=== PATIENT | female | born 1995 | race Caucasian/White ===

== ENCOUNTER 2019-01-31 14:42 | Day surgery (SDC) | payer BC, OTHER ==
[2019-01-31] MEDS ORDERED: ONDANSETRON HCL INJ/PF 4 MG/2 ML SDV IV ONE (14:54)
[2019-01-31] MEDS ORDERED: NORMAL SALINE 1000 ML 1,000 ML IV ONE (14:54)
--- NOTE | 2019-01-31 14:56 | ER Document Report ---
ED Medical Screen (RME) - General Chief Complaint: Lower Abdominal Pain Stated Complaint: ABDOMINAL PAIN Time Seen by Provider: 01/31/19 14:54 Mode of Arrival: Ambulatory Information source: Patient Notes: Patient presents complaining of right flank pain for the past 4 weeks. Patient states yesterday the pain migrated to the right lower quadrant of her abdomen. Patient reports nausea and vomiting today. Patient was seen at the [facility] for her flank pain symptoms last week and then saw urologist yesterday. Patient tachycardic in triage. I have greeted and performed a rapid initial assessment of this patient. A comprehensive ED assessment and evaluation of the patient, analysis of test results and completion of the medical decision making process will be conducted by additional ED providers. TRAVEL OUTSIDE OF THE [place] IN LAST 30 DAYS: No - Related Data Allergies/Adverse Reactions: No Known Allergies Allergy (Verified 01/31/19 14:47) Physical Exam - Vital signs Vitals: Temp Pulse Resp BP Pulse Ox 98.3 F 140 H 16 140/89 H 100 01/31/19 14:50 01/31/19 14:50 01/31/19 14:50 01/31/19 14:50 01/31/19 14:50 - Cardiovascular Rhythm: Tachycardia Heart sounds: S1 appreciated, S2 appreciated - Abdominal Tenderness: Tender - Right lower quadrant Course - Vital Signs Vital signs: Temp Pulse Resp BP Pulse Ox 98.3 F 140 H 16 140/89 H 100 01/31/19 14:50 01/31/19 14:50 01/31/19 14:50 01/31/19 14:50 01/31/19 14:50
[2019-01-31 15:32] LABS: ABSOLUTE LYMPHOCYTES (AUTO) 1.5 10^3/uL (0.5-4.7); ABSOLUTE MONOCYTES (AUTO) 0.5 10^3/uL (0.1-1.4); ABSOLUTE NEUT (AUTO) 8.9 10^3/uL (1.7-8.2); BASOPHILS % (AUTO) 0.3 % (0-2); EOSINOPHILS % (AUTO) 0.4 % (0-6); HEMATOCRIT 41.2 % (36.0-47.0); HEMOGLOBIN 14.1 g/dL (12.0-15.5); LYMPHOCYTES % (AUTO) 13.8 % (13-45); MEAN CORPUSCULAR HEMOGLOBIN 29.9 pg (27.0-33.4); MEAN CORPUSCULAR HGB CONC 34.1 g/dL (32.0-36.0); MEAN CORPUSCULAR VOLUME 88 fl (80-97); MONOCYTES % (AUTO) 4.8 % (3-13); PLATELET COUNT 224 10^3/uL (150-450); RED CELL DISTRIBUTION WIDTH 13.1 % (11.5-14.0); SEGMENTED NEUTROPHILS % (AUTO) 80.7 % (42-78); TOTAL CELLS COUNTED % (AUTO) 100 %; WHITE BLOOD COUNT 11.1 10^3/uL (4.0-10.5)
--- NOTE | 2019-01-31 16:01 | ER Document Report ---
ED GI/ <MALLORY GONSALES - Last Filed: 02/01/19 02:28> - General Mode of Arrival: Ambulatory TRAVEL OUTSIDE OF THE [place] IN LAST 30 DAYS: No <BRENTON GONZÁLES - Last Filed: 02/13/19 03:02> - General Chief Complaint: Lower Abdominal Pain Stated Complaint: ABDOMINAL PAIN Time Seen by Provider: 01/31/19 14:54 Notes: Wet mount shows some bacteria, only 1+ white blood cells. On reevaluation patient continues to have lower abdominal pain, she does have right lower quadrant pain. Ultrasound was negative but this is common. She has mild leukocytosis. She is mildly uncomfortable in appearance but she is not toxic in appearance. I discussed with patient, recommended CT of the abdomen and pelvis with IV and oral contrast to rule out acute appendicitis based on her work-up and exam. Patient is very agreeable with this. CT of the abdomen pelvis with IV and oral contrast does indicate acute appendicitis. I called and spoke with Dr. Frances, he will evaluate the patient. (MALLORY GONSALES) Patient is a 23-year-old female who presents to the emergency department with chief complaint of umbilical pain that radiates into the right lower quadrant. Patient states that she developed right flank pain last Wednesday. Patient states she was seen at urgent care 2 days afterwards and was told she had blood in the urine as well as a possible infection. Patient states they did not do imaging at that time but did prescribe her Cipro. Patient states that 2 hours later she did go to the emergency department at [facility] where she reports receiving a CAT scan. Patient was also told she had blood in her urine and was told she had stones in her kidneys. She was told to not take the Cipro as she did not have an infection in her urine. Patient states she continued to have pain throughout the weekend so she followed up with the urologist yesterday. Patient states she saw [facility] in [place]. She states that the urologist told her to drink plenty of fluids and that the size of the kidney stones should not be cau sing the pain. Patient states she thought maybe she was constipated or was having gas so she attempted mag citrate at home. Patient states she has had multiple bowel movements and has now developed umbilical pain that radiates into the right lower quadrant that started yesterday. Patient states she has had chills without fever. Patient states she started to vomit multiple times today. Denies vaginal bleeding or discharge. Patient states her last menstrual cycle was 9 months ago as she is on the Depo-Provera shot. Patient states that the pain in her abdomen is worse when she lays flat. (BRENTON GONZÁLES) - Related Data Allergies/Adverse Reactions: No Known Allergies Allergy (Verified 01/31/19 14:47) Past Medical History - General Information source: Patient - Social History Smoking Status: Never Smoker Chew tobacco use (# tins/day): No Frequency of alcohol use: Rare Drug Abuse: None Lives with: Spouse/Significant other Family History: None Patient has suicidal ideation: No Patient has homicidal ideation: No - Past Medical History Cardiac Medical History: Reports: None Pulmonary Medical History: Reports: None EENT Medical History: Reports: None Neurological Medical History: Reports: None Endocrine Medical History: Reports: None Renal/ Medical History: Reports: None. Denies: Hx Peritoneal Dialysis Malignancy Medical History: Reports: None GI Medical History: Reports: None Musculoskeletal Medical History: Reports None Skin Medical History: Reports None Psychiatric Medical History: Reports: None Traumatic Medical History: Reports: None Infectious Medical History: Reports: None Past Surgical History: Reports: Other - [place] teeth <BRENTON GONZÁLES - Last Filed: 02/13/19 03:02> Review of Systems - Review of Systems Constitutional: See HPI EENT: No symptoms reported Cardiovascular: No symptoms reported Respiratory: No symptoms reported Gastrointestinal: See HPI Genitourinary: No symptoms reported Female Genitourinary: No symptoms reported Musculoskeletal: No symptoms reported Skin: No symptoms reported Hematologic/Lymphatic: No symptoms reported Neurological/Psychological: No symptoms reported <SHYANNE GONZÁLESECCA - Last Filed: 02/13/19 03:02> Physical Exam - Vital signs Interpretation: Tachycardic <JALEEL GONZÁLESCA - Last Filed: 02/13/19 03:02> - Vital signs Vitals: Temp Pulse Resp BP Pulse Ox 98.3 F 140 H 16 140/89 H 100 01/31/19 14:50 01/31/19 14:50 01/31/19 14:50 01/31/19 14:50 01/31/19 14:50 - Notes Notes: GENERAL: Well-appearing, well-nourished and in no acute distress. HEAD: Atraumatic, normocephalic. EYES: Pupils equal round and reactive to light, extraocular movements intact, sclera anicteric, conjunctiva are normal. ENT: Nares patent, oropharynx clear without exudates. Moist mucous membranes. NECK: Normal range of motion, supple without lymphadenopathy or JVD. LUNGS: Breath sounds clear to auscultation bilaterally and equal. No wheezes rales or rhonchi. HEART: Regular rate and rhythm without murmurs, rubs or gallops. ABDOMEN: Soft, tender with palpation to the umbilicus and RLQ, hyperactive bowel sounds. No guarding, no rebound. No masses appreciated. + rovsings signs. BACK: No cervical, thoracic, lumbar midline tenderness. No saddle anesthesia, normal distal neurovascular exam. No CVA tenderness. GENITOURINARY: Deferred. EXTREMITIES: Normal range of motion, no pitting or edema. No clubbing or cyanosis. NEUROLOGICAL: Cranial nerves II through XII grossly intact. Normal speech, normal gait. PSYCH: Normal mood, normal affect. SKIN: Warm, Dry, normal turgor, no rashes or lesions noted. (BRENTON GONZÁLES) Course - Laboratory Result Diagrams: 01/31/19 15:14 01/31/19 17:55 <MALLORY GONSALES - Last Filed: 02/01/19 02:28> - Laboratory Result Diagrams: 01/31/19 15:14 01/31/19 17:55 <BRENTON GONZÁLES - Last Filed: 02/13/19 03:02> - Re-evaluation Re-evalutation: 01/31/19 18:00 Despite receiving pain medication patient continues to have umbilical pain that radiates into the right lower quadrant. Patient states the pain is worse when she straightens her legs. I did receive the CT scan from when the patient was seen on January 25 at [facility] emergency department. The impression was bilateral nonobstructing nephrolithiasis with no evidence of obstructive uropathy. Patient has a normal caliber appendix containing appendicoliths. No secondary signs for acute appendicitis. Since patient is not having flank pain and has developed new abdominal pain that is located in the umbilicus that radiates to the right lower quadrant I will obtain an abdominal ultrasound the patient did just receive a CAT scan last week. 01/31/19 19:54 Patient's of abdominal ultrasound was negative but they were unable to visualize the appendix. Upon reevaluation of the patient continues to have right lower quadrant pain as well as generalized lower abdominal pain. Patient denies vaginal discharge or pelvic pain. I did explain to the patient that I will perform a pelvic examination to rule out pelvic infection. If normal, will obtain CT. Patient agrees with this plan. (BRENTON GONZÁLES) - Vital Signs Vital signs: Temp Pulse Resp BP Pulse Ox 97.9 F 88 16 123/78 100 02/01/19 16:00 02/01/19 16:00 02/01/19 16:00 02/01/19 16:00 02/01/19 16:00 - Laboratory Laboratory results interpreted by me: 01/31/19 01/31/19 01/31/19 15:14 16:00 17:55 WBC 11.1 H Seg Neutrophils % 80.7 H Absolute Neutrophils 8.9 H Chloride 108 H AST 10 L Total Protein 5.8 L Urine Ketones TRACE H Procedures - Pelvic Exam Pelvic exam Time completed: 20:25 Cultures obtained: Yes Wet prep obtained: Yes Bimanual exam performed: Yes Witnessed by: Nurse Tech <BRENTON GONZÁLES - Last Filed: 02/13/19 03:02> - Pelvic Exam Pelvic exam Notes: 01/31/19 20:31 External genitalia unremarkable. There is no lesions, open wounds or vaginal discharge. Patient tolerated the insertion of the speculum well without signif icant pain. Patient did have small amount of thick white vaginal discharge in the vaginal vault and around cervix. Specimens obtained. Cervix easily visualized and closed. No foreign bodies noted. No bleeding. Bimanual examination performed with mild right adnexal tenderness. (BRENTON GONZÁLES) Discharge - Discharge Admitting Provider: Surgicalist Unit Admitted: Surgical Floor <MALLORY GONSALES - Last Filed: 02/01/19 02:28> <BRENTON GONZÁLES - Last Filed: 02/13/19 03:02> - Discharge Clinical Impression: Right lower quadrant pain Acute appendicitis Qualifiers: Acute appendicitis type: with localized peritonitis Appendicitis gangrene presence: without gangrene Appendicitis perforation presence: without perfor ation Appendicitis abscess presence: without abscess Qualified Code(s): K35.30 - Acute appendicitis with localized peritonitis, without perforation or gangrene Condition: Stable Disposition: ADMITTED OBSERVATION
[2019-01-31 16:11] LABS: APPEARANCE,URINE CLEAR; BILIRUBIN,URINE NEGATIVE (NEGATIVE); COLOR,URINE YELLOW; GLUCOSE, URINE NEGATIVE (NEGATIVE); KETONES,URINE TRACE mg/dL (NEGATIVE); LEUKOCYTE ESTERASE,URINE NEGATIVE (NEGATIVE); NITRITE,URINE NEGATIVE (NEGATIVE); PROTEIN,URINE NEGATIVE (NEGATIVE); URINE SPECIFIC GRAVITY 1.005; UROBILINOGEN,URINE NEGATIVE mg/dL (<2.0)
[2019-01-31] MEDS ORDERED: MORPHINE SULFATE 10 MG/ML INJ IV ONE ×2 (16:11→17:26)
[2019-01-31 18:27] LABS: ALANINE AMINOTRANSFERASE 13 U/L (9-52); ALBUMIN 3.7 g/dL (3.5-5.0); ALKALINE PHOSPHATASE 41 U/L (38-126); ANION GAP 8 (5-19); ASPARTATE AMINO TRANSFERASE 10 U/L (14-36); BILIRUBIN,DIRECT 0.2 mg/dL (0.0-0.4); BILIRUBIN,TOTAL 1.1 mg/dL (0.2-1.3); BLOOD UREA NITROGEN 7 mg/dL (7-20); CALCIUM 8.6 mg/dL (8.4-10.2); CARBON DIOXIDE 23 mmol/L (22-30); CHLORIDE 108 mmol/L (98-107); GLUCOSE 82 mg/dL (75-110); POTASSIUM 3.9 mmol/L (3.6-5.0); TOTAL PROTEIN 5.8 g/dL (6.3-8.2)
--- NOTE | 2019-01-31 19:36 | RADIOLOGY REPORT (SQ) ---
EXAM DESCRIPTION: U/S ABDOMEN COMPLETE W/DOPPLER COMPLETED DATE/TIME: 01/31/2019 7:14 pm REASON FOR STUDY: umbilical pain, rlq pain COMPARISON: None. TECHNIQUE: Dynamic and static grayscale images acquired of the abdomen and recorded on PACS. Additio nal selected color Doppler and spectral images recorded. Note: Study does not meet criteria for complete doppler/duplex scan LIMITATIONS: None. FINDINGS: PANCREAS: No masses. Visualized pancreatic duct normal caliber. LIVER: No masses. Echotexture normal. LIVER VASCULATURE: Normal directional flow of the main portal vein and hepatic veins. GALLBLADDER: No stones. Normal wall thickness. No pericholecystic fluid. ULTRASOUND-DETECTED ROWAN'S SIGN: Negative. INTRAHEPATIC DUCTS AND COMMON DUCT: CBD and intrahepatic ducts normal caliber. No filling defects. INFERIOR VENA CAVA: Normal flow. AORTA: No aneurysm. RIGHT KIDNEY:Normal size. Normal echogenicity. No solid or suspicious masses. No hydronephrosis. No c alcifications. LEFT KIDNEY: Normal size. Normal echogenicity. No solid or suspicious masses. No hydronephrosis. No calcifications. SPLEEN: Normal size. No solid masses. PERITONEAL AND PLEURAL SPACES: No ascites or effusions. OTHER: Appendix not visualized. IMPRESSION: No abnormality identified. TECHNICAL DOCUMENTATION: JOB ID: [id number] [place]-[id number] 2010 [employer]- All Rights Reserved Reading location - IP/workstation name: [employer]
[2019-01-31 20:57] LABS: T.VAGINALIS (WET MOUNT) NO TRICHOMONAS SEEN; WBCS (WET MOUNT) 1+ WBCS SEEN; YEAST (WET MOUNT) NO YEAST SEEN
[2019-01-31 20:58] LABS: BACTERIA (WET MOUNT) 3+ BACTERIA SEEN
[2019-01-31] MEDS ORDERED: HYDROMORPHONE HCL INJ/PF 2 MG/ML AMPULE IV ONE (21:19)
--- NOTE | 2019-01-31 21:26 | EKG REPORT ---
SEVERITY:- ABNORMAL ECG - SINUS TACHYCARDIA ABNORMAL T, CONSIDER ISCHEMIA, INFERIOR LEADS : Confirmed by: Sommer Darnell MD 31-Jan-2019 21:24:57
[2019-01-31] MEDS: NORMAL SALINE 1000 ML 1,000 ML IV PRN (21:41)
[2019-01-31 22:17] LABS: CHLAM PCR NOT DETECTED (NOT DETECT)
[2019-01-31] MEDS ORDERED: METOCLOPRAMIDE HCL INJ/PF 10 MG/2 ML SDV IV ONE (23:06)
--- NOTE | 2019-02-01 00:19 | RADIOLOGY REPORT (SQ) ---
CLINICAL HISTORY: RLQ pain COMPARISON: None. TECHNIQUE: CT ABDOMEN PELVIS WITH IV CONTRAST on 01/31/2019 9:19 PM CDT This exam was performed according to our departmental dose-optimization program, which includes automated exposure control, adjustment of the mA and/or kV according to patient size and/or use of iterative reconstruction technique. FINDINGS: Lower lungs are clear. Abdomen: The liver is normal in appearance. There is no biliary dilatation. Gallbladder is normal in appearance. The pancreas and spleen are normal in appearance. Adrenal glands and left kidney are normal. There is a punctate mid pole right renal calculus. Abdominal aorta is normal in course and caliber without aneurysm. There is no free air. There is no retroperitoneal adenopathy. Pelvis: There is no bowel obstruction. Urinary bladder is unremarkable. There is small amount of free pelvic fluid. Uterus is normal in size. Appendix appears to be thickened measuring at least 1.6 cm and is best seen on coronal reconstructions. Skeleton: There are no acute osseous findings. No suspicious bony lesions. IMPRESSION: Strongly suspect acute appendicitis.
[2019-02-01] MEDS ORDERED: PIPERACILLIN/TAZOBACTAM 3.375 GM VIAL IV ONE (00:36)
[2019-02-01] MEDS ORDERED: NORMAL SALINE 1000 ML 1,000 ML IV PRN (00:36)
[2019-02-01] MEDS ORDERED: HYDROMORPHONE HCL INJ/PF 2 MG/ML AMPULE IV ONE (01:03)
[2019-02-01] MEDS ORDERED: ONDANSETRON 4 MG TAB.RAPDIS PO PRN (01:28)
[2019-02-01] MEDS ORDERED: NORMAL SALINE 1000 ML 1,000 ML IV ONE (01:29)
--- NOTE | 2019-02-01 01:50 | PDOC H&P ---
History of Present Illness Patient complains of: Abdominal pain History of Present Illness: GRETTA CHAHAL is a 23 year old female presenting with acute onset right lower quadrant abdominal pain for about a day. Severe and persistent with associated nausea and vomiting but no fever or diarrhea. Pain worsened with movements. Patient has noted some right flank and right mid abdominal pain intermittently for the past couple of weeks. This pain that she is experiencing now is different from this other pain. She has noted about 25 pound weight loss over the past couple of months but it may be related with being placed on antidepressants at that time. Family history is remarkable for mother with gastric cancer and the patient herself has had a recent screening upper endoscopy which was negative. She notes an isolated episode of small amount of blood on the toilet paper with bowel movement several days ago. No dysuria, no hematuria. No vaginal discharge Past Medical History Cardiac Medical History: Reports: None Pulmonary Medical History: Reports: None EENT Medical History: Reports: None Neurological Medical History: Reports: None Endocrine Medical History: Reports: None Renal/ Medical History: Reports: None Malignancy Medical History: Reports: None GI Medical History: Reports: None Musculoskeltal Medical History: Reports: None Skin Medical History: Reports: None Psychiatric Medical History: Reports: Depression Traumatic Medical History: Reports: None Infectious Medical History: Reports: None Past Surgical History Past Surgical History: Reports: Other - [place] teeth Social History Lives with: Spouse/Significant other Smoking Status: Never Smoker Frequency of Alcohol Use: None Hx Recreational Drug Use: No Family History Parental Family History Reviewed: Yes - Mother with gastric cancer Children Family History Reviewed: Yes Sibling(s) Family History Reviewed.: Yes Medication/Allergy Allergies/Adverse Reactions: No Known Allergies Allergy (Verified 01/31/19 14:47) Review of Systems All systems: reviewed and no additional remarkable complaints except as stated Constitutional: PRESENT: weight loss - About 25 pound weight loss over the past couple of months. Patient attributes this weight loss to recent beginning of antidepressants. Gastrointestinal: PRESENT: as per HPI Physical Exam Vital Signs: Temp Pulse Resp BP Pulse Ox 98.3 F 140 H 16 119/84 100 01/31/19 14:50 01/31/19 14:50 01/31/19 22:01 01/31/19 22:00 01/31/19 22:01 Intake & Output 01/30/19 01/31/1919 06:59 06:59 06:59 Intake Total 1000 Balance 1000 Weight 64.8 kg General appearance: PRESENT: no acute distress, cooperative Eye exam: PRESENT: conjunctiva pink Neck exam: PRESENT: other - Supple and nontender with no masses Respiratory exam: PRESENT: clear to auscultation jose Cardiovascular exam: PRESENT: RRR GI/Abdominal exam: PRESENT: other - Soft, nondistended, focal tenderness in the right lower quadrant with percussion tenderness but no guarding. No CVA tenderness Extremities exam: PRESENT: other - No swelling and no tenderness Neurological exam: PRESENT: alert, awake Psychiatric exam: PRESENT: appropriate affect Skin exam: PRESENT: warm Results Laboratory Results: 01/31/19 15:14 01/31/19 17:55 01/31/19 01/31/19 01/31/19 15:14 15:14 15:14 WBC 11.1 H RBC 4.70 Hgb 14.1 Hct 41.2 MCV 88 MCH 29.9 MCHC 34.1 RDW 13.1 Plt Count 224 Seg Neutrophils % 80.7 H Lymphocytes % 13.8 Monocytes % 4.8 Eosinophils % 0.4 Basophils % 0.3 Absolute Neutrophils 8.9 H Absolute Lymphocytes 1.5 Absolute Monocytes 0.5 Absolute Eosinophils 0.0 Absolute Basophils 0.0 Sodium Cancelled Potassium Cancelled Chloride Cancelled Carbon Dioxide Cancelled Anion Gap Cancelled BUN Cancelled Creatinine Cancelled Est GFR ( Amer) Cancelled Est GFR (Non-Af Amer) Cancelled Glucose Cancelled Calcium Cancelled Total Bilirubin Cancelled AST Cancelled ALT Cancelled Alkaline Phosphatase Cancelled Total Protein Cancelled Albumin Cancelled Lipase Cancelled Serum HCG, Qual NEGATIVE Urine Color Urine Appearance Urine pH Ur Specific [place] Urine Protein Urine Glucose (UA) Urine Ketones Urine Blood Urine Nitrite Ur Leukocyte Esterase Urine WBC (Auto) Urine RBC (Auto) 01/31/19 01/31/19 16:00 17:55 WBC RBC Hgb Hct MCV MCH MCHC RDW Plt Count Seg Neutrophils % Lymphocytes % Monocytes % Eosinophils % Basophils % Absolute Neutrophils Absolute Lymphocytes Absolute Monocytes Absolute Eosinophils Absolute Basophils Sodium 138.6 Potassium 3.9 Chloride 108 H Carbon Dioxide 23 Anion Gap 8 BUN 7 Creatinine 0.69 Est GFR ( Amer) > 60 Est GFR (Non-Af Amer) > 60 Glucose 82 Calcium 8.6 Total Bilirubin 1.1 AST 10 L ALT 13 Alkaline Phosphatase 41 Total Protein 5.8 L Albumin 3.7 Lipase 31.8 Serum HCG, Qual Urine Color YELLOW Urine Appearance CLEAR Urine pH 8.0 Ur Specific [place] 1.005 Urine Protein NEGATIVE Urine Glucose (UA) NEGATIVE Urine Ketones TRACE H Urine Blood NEGATIVE Urine Nitrite NEGATIVE Ur Leukocyte Esterase NEGATIVE Urine WBC (Auto) 1 Urine RBC (Auto) 0 Impressions: Abdomen Ultrasound 01/31/19 18:07 IMPRESSION: No abnormality identified. Abdomen/Pelvis CT 01/31/19 21:19 IMPRESSION: Strongly suspect acute appendicitis. Assessment & Plan - Diagnosis (1) Acute appendicitis Qualifiers: Acute appendicitis type: with localized peritonitis Appendicitis gangrene presence: without gangrene Appendicitis perforation presence: without perforation Appendicitis abscess presence: without abscess Qualified Code(s): K35.30 - Acute appendicitis with localized peritonitis, without perforation or gangrene Is this a current diagnosis for this admission?: Yes Plan: I have reviewed the CT scan with the radiology. Symptoms and exam and CT scan all consistent with appendicitis. I will admit the patient place her on IV antibiotics and IV fluids and will discuss with the oncoming surgeon about proceeding with laparoscopic appendectomy. I have discussed with the patient the risk and benefits of the surgery including risk of mistaken diagnosis, conversion to an open procedure, infection, bleeding, adjacent structure injury and stump leak. Patient understands and agrees to proceed with surgery.
[2019-02-01] MEDS ORDERED: CEFOXITIN INJ 1 GM VIAL ONE (05:18)
[2019-02-01] MEDS: MORPHINE SULFATE 10 MG/ML INJ IV PRN ×2 (05:20→08:32)
[2019-02-01] MEDS: NORMAL SALINE 1000 ML 1,000 ML IV PRN ×2 (05:23→13:45)
[2019-02-01] MEDS ORDERED: FAMOTIDINE INJ/PF 20 MG/2 ML SDV IV PRN (05:50)
[2019-02-01] MEDS ORDERED: CEFOXITIN 1 GM/D5W RTU 1 GM/50 ML RTUPB IV SCH (06:00)
[2019-02-01] MEDS ORDERED: FENTANYL CITRATE INJ/PF 250 MCG/5 ML AMPULE ONE (10:37)
[2019-02-01] MEDS ORDERED: MIDAZOLAM 2 MG/2 ML INJ ONE (10:37)
[2019-02-01] MEDS ORDERED: PROPOFOL INJ 200 MG/20 ML VIAL IV ONE (10:43)
[2019-02-01] MEDS ORDERED: CEFAZOLIN INJ 1 GM VIAL ONE (10:52)
[2019-02-01] MEDS ORDERED: GLYCOPYRROLATE 1 MG/5 ML VIAL ONE (10:55)
[2019-02-01] MEDS ORDERED: ONDANSETRON HCL INJ/PF 4 MG/2 ML SDV ONE ×2 (10:55→13:04)
[2019-02-01] MEDS ORDERED: KETOROLAC TROMETHAMINE 60 MG/2 ML SDV ONE (10:55)
[2019-02-01] MEDS ORDERED: DEXAMETHASONE SOD PHOSPHATE INJ 4 MG/1 ML VIAL ONE (10:55)
[2019-02-01] MEDS ORDERED: NEOSTIGMINE METHYLSULFATE 10 MG/10 ML VIAL ONE (10:55)
[2019-02-01] MEDS ORDERED: LIDOCAINE 2% INJ-PF (20 MG/ML) 2 ML AMPUL ONE (10:55)
[2019-02-01] MEDS ORDERED: ROCURONIUM BROMIDE INJ 50 MG/5 ML VIAL IV ONE (10:55)
[2019-02-01] MEDS ORDERED: BUPIVACAINE HCL 0.25% /EPINEPHRINE INJ/PF 30 ML SDV ONE (11:02)
[2019-02-01] MEDS ORDERED: MORPHINE SULFATE 10 MG/ML INJ IV PRN (11:21)
[2019-02-01] MEDS ORDERED: PROMETHAZINE HCL INJ 25 MG/1 ML VIAL IV PRN ×2 (11:21)
[2019-02-01] MEDS ORDERED: OXYCODONE-ACETAMINOPHEN 5-325 MG TABLET PO PRN ×2 (11:21)
[2019-02-01] MEDS ORDERED: DIPHENHYDRAMINE HCL 50 MG/ML VIAL IV PRN (11:21)
[2019-02-01] MEDS ORDERED: FENTANYL CITRATE INJ/PF 100 MCG/2 ML AMPUL IV PRN ×3 (11:21)
[2019-02-01] MEDS ORDERED: MEPERIDINE HCL/PF INJ 25 MG/1 ML DISP.SYRIN IV PRN (11:21)
--- NOTE | 2019-02-01 11:51 | Operative Report ---
Nonrecallable Operative Report DATE OF SURGERY: 02/01/19 PREOPERATIVE DIAGNOSIS: appendicitis POSTOPERATIVE DIAGNOSIS: appendicitis OPERATION: laparosacoic appendiectomy SURGEON: IVANNA MARSH ANESTHESIA: GA TISSUE REMOVED OR ALTERED: appendix COMPLICATIONS: none ESTIMATED BLOOD LOSS: 5cc INTRAOPERATIVE FINDINGS: acute appendicitis
[2019-02-01] MEDS: HYDROMORPHONE HCL INJ/PF 2 MG/ML AMPULE ONE ×2 (12:26→12:36)
--- NOTE | 2019-02-01 12:45 | OPERATIVE REPORT E ---
Operative Report NAME: GRETTA CHAHAL : 1995 AGE: 23Y DATE OF SURGERY: 02/01/2019 ROOM: 413 PREOPERATIVE DIAGNOSIS: Acute appendicitis. POSTOPERATIVE DIAGNOSIS: Acute appendicitis. OPERATIVE PROCEDURE: Laparoscopic appendectomy. SURGEON: IVANNA MARSH M.D. ANESTHESIA: General. PROCEDURE: The patient was brought to the operating room awake, alert, and in stable condition, placed on the operating table in supine position, induced under general anesthesia, and intubated. The abdomen was prepped and draped in the usual sterile manner for the procedure. After appropriate time out and site verification, a Veress needle was placed into the umbilicus, and the abdomen was insufflated with 6 L of CO2 gas. An infraumbilical 5 mm incision was made with a 15 blade and a 5 mm port placed in the abdominal cavity. Intra-abdominal visualization revealed no evidence of Veress needle or trocar injury. A suprapubic 5 mm port was placed under direct vision, as was the left lower quadrant 11 mm port. The appendix was identified; it was retrocecal in nature. It was mobilized medially by taking down the lateral attachments with Bovie cautery. Once that was done, the mesoappendix was handled with one firing of the EndoGIA stapler with a white load, and then we came across the base of the appendix on the cecum with one firing of the EndoGIA stapler with a purple load. The appendix was placed in an Endobag and removed through the left lower quadrant port site. The right lower quadrant and pelvis were irrigated with normal saline, suctioned dry, and hemostasis was noted to be intact. The ports were then removed. The left lower quadrant fascial defect was closed with 0 Vicryl in the fascia, and then all three skin incisions were closed with intracuticular 4-0 Biosyn. Steri-Strips completed the procedure. Estimated blood loss was less than 5 mL. Sponge and needle counts were correct x2. The patient was awakened in the operating room, extubated, and transferred to recovery in stable condition, no complications. DICTATING PHYSICIAN: IVANNA MARSH M.D. [id number] PHY#: [id number] ID: [id number] JOB#: [id number] ACCT: [id number] cc:IVANNA MARSH M.D. >
--- NOTE | 2019-02-01 13:10 | DISCHARGE SUMMARY E ---
Discharge Summary NAME: GRETTA CHAHAL : 1995 AGE: 23Y ADMITTED: 02/01/2019 DISCHARGED: 02/01/2019 ADMISSION DIAGNOSIS: Acute appendicitis. DISCHARGE DIAGNOSIS: Acute appendicitis. OPERATIVE PROCEDURE: Laparoscopic appendectomy. REASON FOR HOSPITALIZATION/HOSPITAL COURSE: This is a 23-year-old female with about a week history of right lower quadrant abdominal pain. She initially went to [facility] where a CT scan was obtained which only showed a phlebolith of the appendix and she was sent home. Her pain persisted. She saw a urologist without definitive treatment. She then came to the emergency room here where she underwent a repeat CT scan which showed inflammation around the appendix. She was, therefore, admitted and scheduled for surgery. She received preoperative antibiotics and was then brought to the operating room. She underwent a laparoscopic appendectomy without complications. Postoperatively she had a routine benign postop course. She was stable on the day of surgery and will be discharged home today after surgery. DISCHARGE INSTRUCTIONS: Discharge medications include only Tramadol 50 mg p.o. every 6 hours p.r.n. pain. She will be given an appointment in 7 to 10 days in Surgery Clinic for followup. DISCHARGE DIAGNOSIS: Acute appendicitis. DICTATING PHYSICIAN: IVANNA MARSH M.D. [id number] PHY#: [id number] ID: [id number] JOB#: [id number] ACCT: [id number] cc:Anderson HODGE MD, M.D. CHRISTOPHER SUHR, M.D. >
[2019-02-01 16:03] VITALS: BP 123/78
== END 2019-02-01 17:11 | disposition home or self-care (01) ==
LOC: ER 14:42 → OROUT 02-01 01:28 → EH 02-01 01:45 → UNDOADMOB 02-01 01:45 → EH 02-01 04:55 → 4N 02-01 04:55 → UNDODISOB 02-01 17:11 → OROUT 02-01 17:11
PROVIDERS: ATTEND Surgery
DX: K35.33 Acute appendicitis with perforation, localized peritonitis, and gangrene, with abscess (principal); R00.0 Tachycardia, unspecified; N20.0 Calculus of kidney; R63.4 Abnormal weight loss; D72.829 Elevated white blood cell count, unspecified; N89.8 Other specified noninflammatory disorders of vagina; Z79.3 Long term (current) use of hormonal contraceptives
CPT/HCPCS: 44970; 93005; 96376; 99285; 96361; 96375; 96365; 36415; 87040; 87210; 83690; 84703; 85025; 80053; 81001; 87491; 87591; 88304 ×2; 76700; 93976; 74177; 93010; 00840; J2250; J3490 ×5; J0690; J1100; J0694; J1885; J3010; J2765; J2270 ×2; J2710; J1170 ×2; J2405 ×2; J7030 ×2; J2704; S0028; J2543; 840

== ENCOUNTER 2019-10-04 16:03 | Emergency (ER) | payer BC, OTHER ==
[2019-10-04 16:47] VITALS: BP 109/68
--- NOTE | 2019-10-04 17:08 | ER Document Report ---
ED Medical Screen (RME) - General Stated Complaint: ABDOMINAL PAIN - LEFT SIDE - SURGICIAL SITE Time Seen by Provider: 10/04/19 16:57 Mode of Arrival: Ambulatory Information source: Patient Notes: 24-year-old female with recent gastrectomy presents to the emergency department with complaints of left upper quad abdominal pain. Patient gives history of her mothers recent 5 months ago from stomach cancer. 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 On September 18 she had a gastrectomy done at [facility] in [place]. She reports she was discharged home on September 26. Patient reports she drove home to [place]. She reports she had some soreness on that left side. She reports the pain has now increased nothing is helping decrease the pain. She did contact her team at the [facility] and was advised to come to the emergency department. Patient reports she is having normal bowel movements. Complains of some nausea but denies vomiting. Denies fever. I have greeted and performed a rapid initial assessment of this patient. A comprehensive ED assessment and evaluation of the patient, analysis of test results and completion of the medical decision making process will be conducted by additional ED providers. TRAVEL OUTSIDE OF THE U[place] IN LAST 30 DAYS: No - Related Data Allergies/Adverse Reactions: No Known Allergies Allergy (Verified 10/04/19 16:57) Past Medical History Renal/ Medical History: Denies: Hx Peritoneal Dialysis Psychiatric Medical History: Reports: Hx Depression Past Surgical History: Reports: Other - [place] teeth Physical Exam - Vital signs Vitals: Temp Pulse Resp BP Pulse Ox 99.0 F 99 16 109/68 98 10/04/19 16:46 10/04/19 16:46 10/04/19 16:46 10/04/19 16:46 10/04/19 16:46 Course - Vital Signs Vital signs: Temp Pulse Resp BP Pulse Ox 99.0 F 99 16 109/68 98 10/04/19 16:46 10/04/19 16:46 10/04/19 16:46 10/04/19 16:46 10/04/19 16:46
[2019-10-04 17:26] LABS: ABSOLUTE BASOPHILS # (AUTO) 0.1 10^3/uL (0.0-0.2); ABSOLUTE EOSINOPHILS # (AUTO) 0.3 10^3/uL (0.0-0.6); ABSOLUTE LYMPHOCYTES (AUTO) 2.2 10^3/uL (0.5-4.7); ABSOLUTE MONOCYTES (AUTO) 0.5 10^3/uL (0.1-1.4); BASOPHILS % (AUTO) 1.1 % (0-2); EOSINOPHILS % (AUTO) 4.2 % (0-6); HEMATOCRIT 42.8 % (36.0-47.0); HEMOGLOBIN 14.7 g/dL (12.0-15.5); LYMPHOCYTES % (AUTO) 30.9 % (13-45); MEAN CORPUSCULAR HEMOGLOBIN 30.8 pg (27.0-33.4); MEAN CORPUSCULAR HGB CONC 34.3 g/dL (32.0-36.0); MEAN CORPUSCULAR VOLUME 90 fl (80-97); MONOCYTES % (AUTO) 7.1 % (3-13); PLATELET COUNT 435 10^3/uL (150-450); RED BLOOD COUNT 4.76 10^6/uL (3.72-5.28); RED CELL DISTRIBUTION WIDTH 13.6 % (11.5-14.0); SEGMENTED NEUTROPHILS % (AUTO) 56.7 % (42-78); TOTAL CELLS COUNTED % (AUTO) 100 %
[2019-10-04 17:35] LABS: APPEARANCE,URINE SLIGHTLY-CLOUDY; BILIRUBIN,URINE NEGATIVE (NEGATIVE); COLOR,URINE YELLOW; GLUCOSE, URINE NEGATIVE (NEGATIVE); KETONES,URINE TRACE mg/dL (NEGATIVE); LEUKOCYTE ESTERASE,URINE NEGATIVE (NEGATIVE); NITRITE,URINE NEGATIVE (NEGATIVE); PROTEIN,URINE NEGATIVE (NEGATIVE); URINE SPECIFIC GRAVITY 1.019; UROBILINOGEN,URINE NEGATIVE mg/dL (<2.0)
[2019-10-04 17:42] LABS: ADD MANUAL MICROSCOPIC YES
[2019-10-04 17:44] LABS: ALBUMIN 4.7 g/dL (3.5-5.0); ALKALINE PHOSPHATASE 62 U/L (38-126); ANION GAP 13 (5-19); ASPARTATE AMINO TRANSFERASE 24 U/L (14-36); BILIRUBIN,TOTAL 0.3 mg/dL (0.2-1.3); BLOOD UREA NITROGEN 9 mg/dL (7-20); CALCIUM 9.8 mg/dL (8.4-10.2); CARBON DIOXIDE 21 mmol/L (22-30); CHLORIDE 108 mmol/L (98-107); GLUCOSE 88 mg/dL (75-110); POTASSIUM 4.7 mmol/L (3.6-5.0); TOTAL PROTEIN 7.3 g/dL (6.3-8.2)
[2019-10-04 17:54] LABS: WBC,URINE 0-1 /HPF
--- NOTE | 2019-10-04 17:59 | RADIOLOGY REPORT (SQ) ---
EXAM DESCRIPTION: U/S ABDOMEN LIMITED W/O DOP COMPLETED DATE/TIME: 10/04/2019 5:46 pm REASON FOR STUDY: spleen, recent gastrectomy COMPARISON: None. TECHNIQUE: Dynamic and static grayscale images acquired of the abdomen and recorded on PACS. Additio nal selected color Doppler and spectral images recorded. LIMITATIONS: None. FINDINGS: Imaging of the left upper quadrant shows normal bowel activity. The spleen appears normal , measuring 10.3 cm. No abnormal fluid collection is seen. IMPRESSION: Normal left upper quadrant ultrasound. TECHNICAL DOCUMENTATION: JOB ID: [id number] [email or web address]- All Rights Reserved Reading location - IP/workstation name: [email or web address]
--- NOTE | 2019-10-04 19:42 | ER Document Report ---
HPI - HPI Patient complains to provider of: Left upper quad abdominal pain Time Seen by Provider: 10/04/19 16:57 Onset: Last week Onset/Duration: Persistent Quality of pain: Achy Pain Level: 3 Context: 24-year-old female with recent gastrectomy presents to the emergency department with complaints of left upper quad abdominal pain. Patient gives history of her mothers recent 5 months ago from stomach cancer. 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 On September 18 she had a gastrectomy done at [facility] in [place]. She reports she was discharged home on September 26. Patient reports she drove home to [place]. She reports she had some soreness on that left side. She reports the pain has now increased nothing is helping decrease the pain. She did contact her team at the [facility] and was advised to come to the emergency department. Patient reports she is having normal bowel movements. Complains of some nausea but denies vomiting. Denies fever. Associated Symptoms: None Exacerbated by: Denies Relieved by: Denies Similar symptoms previously: No Recently seen / treated by doctor: Yes - REPRODUCTIVE LMP: 09/11/19 Reproductive: DENIES: : Past Medical History - General Information source: Patient - Social History Smoking Status: Never Smoker Chew tobacco use (# tins/day): No Frequency of alcohol use: None Drug Abuse: None Lives with: Family Family History: None, Malignancy Patient has suicidal ideation: No Patient has homicidal ideation: No Renal/ Medical History: Denies: Hx Peritoneal Dialysis Psychiatric Medical History: Reports: Hx Depression Past Surgical History: Reports: Hx Appendectomy, Other - [place] teeth Vertical Provider Document - CONSTITUTIONAL Agree With Documented VS: Yes Exam Limitations: No Limitations General Appearance: WD/WN, No Apparent Distress - Nontoxic looking - INFECTION CONTROL TRAVEL OUTSIDE OF THE U[place] IN LAST 30 DAYS: No - HEENT HEENT: Atraumatic, Normocephalic. negative: Conjuctival Injection - NECK Neck: Normal Inspection, Supple - RESPIRATORY Respiratory: Breath Sounds Normal, No Respiratory Distress - CARDIOVASCULAR Cardiovascular: Regular Rate - GI/ABDOMEN Gastrointestinal: Abdomen Soft, Abdomen Tender - Left upper quad tenderness - BACK Back: Normal Inspection, CVA Tenderness-Left - Left flank pain tenderness - MUSCULOSKELETAL/EXTREMETIES Musculoskeletal/Extremeties: PAYAM TREVIZO - NEURO Level of Consciousness: Awake, Alert, Appropriate Motor/Sensory: No Motor Deficit - DERM Integumentary: Warm, Dry Course - Re-evaluation Re-evalutation: 10/04/19 20:59 24-year-old female presents with left upper quadrant abdominal pain. Reports that she recently had a gastrectomy. Reports her mother from stomach cancer. She was tested and she has a gene for her stomach and breast cancer so she went ahead and had a gastrectomy. She reports surgery was on September 18. She was discharged last Wednesday and traveled home. She reports for the past 6 days she has some left upper quad abdominal pain. Denies fever vomiting diarrhea. Labs unremarkable ultrasound negative. Patient is requesting to talia tatum. She was given a copy of all her labs and ultrasound and instructed to follow-up with her primary care tomorrow. She was also instructed to return for any concerns worsening symptoms vomiting fever. She verbalized understanding to all instructions. Abdomen Ultrasound 10/04/19 17:04 IMPRESSION: Normal left upper quadrant ultrasound. Laboratory 10/04/19 10/04/19 10/04/19 17:10 17:10 17:10 WBC 7.0 RBC 4.76 Hgb 14.7 Hct 42.8 MCV 90 MCH 30.8 MCHC 34.3 RDW 13.6 Plt Count 435 Lymph % (Auto) 30.9 [place] % (Auto) 7.1 Eos % (Auto) 4.2 Baso % (Auto) 1.1 Absolute Neuts (auto) 4.0 Absolute Lymphs (auto) 2.2 Absolute Monos (auto) 0.5 Absolute Eos (auto) 0.3 Absolute Basos (auto) 0.1 Seg Neutrophils % 56.7 Sodium 141.6 Potassium 4.7 Chloride 108 H Carbon Dioxide 21 L Anion Gap 13 BUN 9 Creatinine 0.75 Est GFR ( Amer) > 60 Est GFR (MDRD) Non-Af > 60 Glucose 88 Calcium 9.8 Total Bilirubin 0.3 Direct Bilirubin 0.0 Neonat Total Bilirubin Not Reportable Neonat Direct Bilirubin Not Reportable Neonat Indirect Bili Not Reportable AST 24 ALT 24 Alkaline Phosphatase 62 Total Protein 7.3 Albumin 4.7 Urine Color YELLOW Urine Appearance SLIGHTLY-CLOUDY Urine pH 7.0 Ur Specific [place] 1.019 Urine Protein NEGATIVE Urine Glucose (UA) NEGATIVE Urine Ketones TRACE H Urine Blood NEGATIVE Urine Nitrite NEGATIVE Urine Bilirubin NEGATIVE Urine Urobilinogen NEGATIVE Ur Leukocyte Esterase NEGATIVE Urine WBC 0-1 Ur Squamous Epith Cells FEW Urine Mucus 1+ Urine Ascorbic Acid NEGATIVE - Vital Signs Vital signs: Temp Pulse Resp BP Pulse Ox 99.0 F 99 16 109/68 98 10/04/19 16:46 10/04/19 16:46 10/04/19 16:46 10/04/19 16:46 10/04/19 16:46 - Laboratory Result Diagrams: 10/04/19 17:10 10/04/19 17:10 Laboratory results interpreted by me: 10/04/19 10/04/19 17:10 17:10 Chloride 108 H Carbon Dioxide 21 L Urine Ketones TRACE H - Diagnostic Test Radiology reviewed: Image reviewed, Reports reviewed Discharge - Discharge Clinical Impression: left upper abdominal pain Condition: Stable Disposition: HOME, SELF-CARE Additional Instructions: *You have been evaluated for abdominal pain *You have received a copy labs and ultra sound *Follow up with a primary care provider within 5 days, take a copy of your labs and ultrasound with you *Return to ED for worsening condition, changes, needs *Return to ED if not better in 24 hours
== END 2019-10-04 19:45 | disposition home or self-care (01) ==
LOC: ER 16:03
DX: R10.12 Left upper quadrant pain (principal); Z90.3 Acquired absence of stomach [part of]; Z98.890 Other specified postprocedural states
CPT/HCPCS: 36415; 76705; 80053; 81001; 85025; 99284

== ENCOUNTER 2019-10-06 14:31 | Inpatient (IN) | payer BC, OTHER ==
[2019-10-06] MEDS ORDERED: MORPHINE SULFATE 10 MG/ML INJ IV ONE (15:02)
[2019-10-06] MEDS ORDERED: ONDANSETRON HCL INJ/PF 4 MG/2 ML SDV IV ONE ×2 (15:02→21:02)
[2019-10-06] MEDS ORDERED: NORMAL SALINE 1000 ML 1,000 ML IV ONE (15:02)
--- NOTE | 2019-10-06 15:05 | ER Document Report ---
ED Medical Screen (RME) - General Chief Complaint: Abdominal Pain Stated Complaint: POST SURGICAL PAIN Time Seen by Provider: 10/06/19 14:52 Primary Care Provider: OLIVER COTTER FNP-C [Primary Care Provider] - Follow up as needed Mode of Arrival: Ambulatory Information source: Patient Notes: 24-year-old female patient presenting to the emergency department with left upper quadrant abdominal pain. Patient reports she had a total gastrectomy done approximately 3 weeks ago. She had this gastrectomy done as she had a genetic marker positive for predisposition of cancer. She states she has had severe left upper quadrant pain since the time of the surgery with nausea. Midline abdominal incision appears to be healing well. Tenderness in the left upper quadrant noted. I have greeted and performed a rapid initial assessment of this patient. A comprehensive ED assessment and evaluation of the patient, analysis of test results and completion of the medical decision making process will be conducted by additional ED providers. I have specifically instructed the patient or family members with the patient to immediately return to any nursing staff yunier uld anything change in the patient's condition or with their chief complaint. TRAVEL OUTSIDE OF THE [place] IN LAST 30 DAYS: No - Related Data Allergies/Adverse Reactions: No Known Allergies Allergy (Verified 10/04/19 16:57) Home Medications: Bariatric Multivitamin. Ibuprofen. Calcium Past Medical History Renal/ Medical History: Denies: Hx Peritoneal Dialysis Psychiatric Medical History: Reports: Hx Depression Past Surgical History: Reports: Hx Appendectomy, Other - [place] teeth Physical Exam - Vital signs Vitals: Temp Pulse Resp BP Pulse Ox 98.5 F 143 H 20 139/65 H 99 10/06/19 14:38 10/06/19 14:38 10/06/19 14:38 10/06/19 14:38 10/06/19 14:38 Course - Vital Signs Vital signs: Temp Pulse Resp BP Pulse Ox 98.5 F 143 H 20 139/65 H 99 10/06/19 14:38 10/06/19 14:38 10/06/19 14:38 10/06/19 14:38 10/06/19 14:38 Doctor's Discharge - Discharge Referrals: OLIVER COTTER FNP-C [Primary Care Provider] - Follow up as needed
[2019-10-06 16:48] LABS: ABSOLUTE BASOPHILS # (AUTO) 0.1 10^3/uL (0.0-0.2); ABSOLUTE EOSINOPHILS # (AUTO) 0.2 10^3/uL (0.0-0.6); ABSOLUTE LYMPHOCYTES (AUTO) 1.5 10^3/uL (0.5-4.7); ABSOLUTE MONOCYTES (AUTO) 0.4 10^3/uL (0.1-1.4); ABSOLUTE NEUT (AUTO) 2.6 10^3/uL (1.7-8.2); BASOPHILS % (AUTO) 1.1 % (0-2); HEMOGLOBIN 14.3 g/dL (12.0-15.5); LYMPHOCYTES % (AUTO) 30.8 % (13-45); MEAN CORPUSCULAR HEMOGLOBIN 30.3 pg (27.0-33.4); MEAN CORPUSCULAR HGB CONC 33.9 g/dL (32.0-36.0); MEAN CORPUSCULAR VOLUME 89 fl (80-97); MONOCYTES % (AUTO) 7.9 % (3-13); PLATELET COUNT 357 10^3/uL (150-450); RED BLOOD COUNT 4.71 10^6/uL (3.72-5.28); RED CELL DISTRIBUTION WIDTH 13.6 % (11.5-14.0); SEGMENTED NEUTROPHILS % (AUTO) 55.2 % (42-78); TOTAL CELLS COUNTED % (AUTO) 100 %; WHITE BLOOD COUNT 4.8 10^3/uL (4.0-10.5)
[2019-10-06 17:24] LABS: ALBUMIN 4.8 g/dL (3.5-5.0); ALKALINE PHOSPHATASE 66 U/L (38-126); ANION GAP 10 (5-19); ASPARTATE AMINO TRANSFERASE 36 U/L (14-36); BILIRUBIN,TOTAL 0.4 mg/dL (0.2-1.3); BLOOD UREA NITROGEN 10 mg/dL (7-20); CALCIUM 9.9 mg/dL (8.4-10.2); CARBON DIOXIDE 25 mmol/L (22-30); CHLORIDE 106 mmol/L (98-107); GLUCOSE 79 mg/dL (75-110); POTASSIUM 4.9 mmol/L (3.6-5.0); TOTAL PROTEIN 7.6 g/dL (6.3-8.2)
[2019-10-06] MEDS ORDERED: HYDROMORPHONE HCL INJ/PF 2 MG/ML AMPULE IV ONE ×2 (18:25→22:52)
[2019-10-06] MEDS ORDERED: RINGERS SOLUTION,LACTATED 1,000 ML IV ONE (18:26)
--- NOTE | 2019-10-06 18:43 | ER Document Report ---
ED General - General Mode of Arrival: Ambulatory Information source: Patient TRAVEL OUTSIDE OF THE [place] IN LAST 30 DAYS: No - HPI Onset: Other Onset/Duration: Gradual, Persistent, Worse Quality of pain: Sharp Severity: Severe Pain Level: 4 Associated symptoms: Nausea. denies: Chest pain, Nonproductive cough, Productive cough, Fever, Headache, Vomiting, Shortness of breath Exacerbated by: Food Relieved by: Denies Similar symptoms previously: Yes Recently seen / treated by doctor: Yes - Related Data Home Medications: Bariatric Multivitamin. Ibuprofen. Calcium <MALIK HERNÁNDEZ - Last Filed: 10/06/19 20:05> <CANDACE MALIK IV - Last Filed: 10/06/19 23:39> - General Chief Complaint: Abdominal Pain Stated Complaint: POST SURGICAL PAIN Time Seen by Provider: 10/06/19 14:52 Primary Care Provider: OLIVER COTTER FNP-C [COMMUNITY BASED STAFF] - Follow up as needed Notes: 24-year-old female patient presenting to the emergency department with left upper quadrant abdominal pain. Patient reports she had a total gastrectomy done approximately 3 weeks ago. She had this gastrectomy done as she had a genetic marker positive for predisposition of cancer. She states she has had severe left upper quadrant pain since the time of the surgery with nausea. (MALIK HERNÁNDEZ) - Related Data Allergies/Adverse Reactions: No Known Allergies Allergy (Verified 10/04/19 16:57) Past Medical History - General Information source: Patient - Social History Smoking Status: Never Smoker Frequency of alcohol use: None Drug Abuse: None Lives with: Spouse/Significant other Family History: None, Malignancy Patient has suicidal ideation: No Patient has homicidal ideation: No - Medical History Medical History: Negative Renal/ Medical History: Denies: Hx Peritoneal Dialysis Psychiatric Medical History: Reports: Hx Depression Past Surgical History: Reports: Hx Appendectomy, Other - [place] teeth <MALIK HERNÁNDEZ - Last Filed: 10/06/19 20:05> Review of Systems <MALIK HERNÁNDEZ - Last Filed: 10/06/19 20:05> - Review of Systems Notes: REVIEW OF SYSTEMS: CONSTITUTIONAL : Denies fever, chills, or sweats. Denies recent illness. Denies weight loss, recent hospitalizations. EENT: Denies visual changes, eye pain. Denies sore throat, oral lesions, difficulty swallowing. CARDIOVASCULAR: Denies chest pain. Denies palpitations. Denies lower extremity edema. RESPIRATORY: Denies cough. Denies shortness of breath, wheezing. GASTROINTESTINAL: + abdominal pain denies distention. + nausea, denies vomiting, or diarrhea. Denies blood in vomitus, stools, or per rectum. Denies black, tarry stools. Denies constipation. GENITOURINARY: Denies difficulty urinating, painful urination, frequency, blood in urine, or vaginal discharge. MUSCULOSKELETAL: Denies back or neck pain or stiffness. Denies joint pain or swelling. SKIN: Denies rash, lesions or sores. HEMATOLOGIC : Denies easy bruising or bleeding. LYMPHATIC: Denies swollen glands. NEUROLOGICAL: Denies confusion or altered mental status. Denies loss of consciousness. Denies dizziness or lightheadedness. Denies headache. Denies weakness or paralysis. Denies problems difficulty with ambulation, slurred speech. Denies sensory loss, numbness, or tingling. Denies seizures. PSYCHIATRIC: Denies anxiety or stress. Denies depression, suicidal ideation, or homicidal ideation. Denies visual or auditory hallucinations. (MALIK HERNÁNDEZ) Physical Exam <MALIK HERNÁNDEZ - Last Filed: 10/06/19 20:05> - Vital signs Vitals: Temp Pulse Resp BP Pulse Ox 98.5 F 143 H 20 139/65 H 99 10/06/19 14:38 10/06/19 14:38 10/06/19 14:38 10/06/19 14:38 10/06/19 14:38 - Notes Notes: PHYSICAL EXAMINATION: GENERAL: Well-appearing, well-nourished and in no acute distress. HEAD: Atraumatic, normocephalic. EYES: Pupils equal round and reactive to light, extraocular movements intact, conjunctiva are normal. ENT: Nares patent, oropharynx clear without exudates. Moist mucous membranes. NECK: Normal range of motion, supple without lymphadenopathy LUNGS: Breath sounds clear to auscultation bilaterally and equal. No wheezes rales or rhonchi. HEART: Regular rate and rhythm without murmurs ABDOMEN: Soft, nontender, nondistended abdomen. No guarding, no rebound. No masses appreciated. Female : deferred Musculoskeletal: Normal range of motion, no pitting or edema. No cyanosis. NEUROLOGICAL: Cranial nerves grossly intact. Normal speech, normal gait. Normal sensory, motor exams PSYCH: Normal mood, normal affect. SKIN: Warm, Dry, normal turgor, no rashes or lesions noted. (MALIK HERNÁNDEZ) Course - Laboratory Result Diagrams: 10/06/19 16:30 10/06/19 16:30 <MALIK HERNÁNDEZ - Last Filed: 10/06/19 20:05> - Laboratory Result Diagrams: 10/06/19 16:30 10/06/19 16:30 - Consults dr. malvin jo Time consulted: 21:40 - dr jo recommended oral contrast ct, will consult on pt, recommended medical admit for pancreatitis dr jean claude asencio Time consulted: 21:51 - recommended d/c home on clear fluid diet <YVONNECANDACE IV - Last Filed: 10/06/19 23:39> - Re-evaluation Re-evalutation: 10/06/19 18:42 Laboratory 10/06/19 10/06/19 10/06/19 16:30 16:30 16:30 WBC 4.8 RBC 4.71 Hgb 14.3 Hct 42.0 MCV 89 MCH 30.3 MCHC 33.9 RDW 13.6 Plt Count 357 Lymph % (Auto) 30.8 [place] % (Auto) 7.9 Eos % (Auto) 5.0 Baso % (Auto) 1.1 Absolute Neuts (auto) 2.6 Absolute Lymphs (auto) 1.5 Absolute Monos (auto) 0.4 Absolute Eos (auto) 0.2 Absolute Basos (auto) 0.1 Seg Neutrophils % 55.2 Sodium 141.0 Potassium 4.9 Chloride 106 Carbon Dioxide 25 Anion Gap 10 BUN 10 Creatinine 0.80 Est GFR ( Amer) > 60 Est GFR (MDRD) Non-Af > 60 Glucose 79 Lactic Acid 1.0 Calcium 9.9 Total Bilirubin 0.4 Direct Bilirubin 0.0 Neonat Total Bilirubin Not Reportable Neonat Direct Bilirubin Not Reportable Neonat Indirect Bili Not Reportable AST 36 ALT 52 H Alkaline Phosphatase 66 Total Protein 7.6 Albumin 4.8 Lipase 1010.6 H Temp Pulse Resp BP Pulse Ox 98.5 F 143 H 20 139/65 H 99 10/06/19 14:38 10/06/19 14:38 10/06/19 14:38 10/06/19 14:38 10/06/19 14:38 10/06/19 19:39 ED Course History: 24-year-old female with recent history of gastrectomy presents with left upper quadrant abdominal pain Patient evaluated. Vital signs were reviewed. Patient is tachycardic, afebrile. Previous medical records and nursing notes reviewed. Patient appears to be in significant discomfort. Exam Findings: Tenderness with palpation to the left upper quadrant, epigastric region. Lab Findings: CBC is without leukocytosis or anemia. CMP shows no electrolyte abnormalities and normal renal function. LFTs WNL. Lipase is elevated. Patient Interventions/Monitor: IV fluids, morphine, Zofran, Dilaudid Revaluation: Persistent pain. Awaiting CT and ultrasound. Disposition: Patient signed out to Dr. Malik with CT of the abdomen and pelvis and right upper quadrant ultrasound pending. 10/06/19 20:05 (MALIK HERNÁNDEZ) - Vital Signs Vital signs: Temp Pulse Resp BP Pulse Ox 98.5 F 143 H 20 139/65 H 99 10/06/19 14:38 10/06/19 14:38 10/06/19 14:38 10/06/19 14:38 10/06/19 14:38 - Laboratory Laboratory results interpreted by me: 10/06/19 10/06/19 15:05 16:30 ALT 52 H Lipase 1010.6 H Urine Protein 100 H Urine Ketones 20 H Urine Ascorbic Acid 40 H - Consults dr. malvin jo Reason for consultation: 10/06/19 21:46 pancreatitis, s/p gastrectomy 3 weeks ago (CANDACE MALIK IV) dr jean claude asencio Reason for consultation: 10/06/19 21:51 pancreatitis (CANDACE MALIK IV) Discharge <MALIK HERNÁNDEZ - Last Filed: 10/06/19 20:05> - Discharge Admitting Provider: Surgicalist - dr. jo Unit Admitted: Medical Floor <CANDACE MALIK IV - Last Filed: 10/06/19 23:39> - Discharge Clinical Impression: Pancreatitis Qualifiers: Chronicity: acute Pancreatitis type: unspecified pancreatitis type Acute pancreatitis complication: unspecified Qualified Code(s): K85.90 - Acute pancreatitis without necrosis or infection, unspecified Condition: Good Disposition: ADMITTED INPATIENT Referrals: OLIVER COTTER, DARIUS-C [COMMUNITY BASED STAFF] - Follow up as needed
[2019-10-06] MEDS ORDERED: DOXYCYCLINE HYCLATE 100 MG TABLET PO ONE (19:55)
[2019-10-06] MEDS ORDERED: IPRATROPIUM/ALBUTEROL 0.5-2.5 MG/3 ML AMPUL NEB ONE (19:55)
[2019-10-06 19:59] LABS: APPEARANCE,URINE TURBID; BILIRUBIN,URINE NEGATIVE (NEGATIVE); COLOR,URINE YELLOW; GLUCOSE, URINE NEGATIVE (NEGATIVE); KETONES,URINE 20 mg/dL (NEGATIVE); LEUKOCYTE ESTERASE,URINE NEGATIVE (NEGATIVE); NITRITE,URINE NEGATIVE (NEGATIVE); PROTEIN,URINE 100 mg/dL (NEGATIVE); URINE SPECIFIC GRAVITY 1.034; UROBILINOGEN,URINE NEGATIVE mg/dL (<2.0)
--- NOTE | 2019-10-06 20:18 | RADIOLOGY REPORT (SQ) ---
US ABDOMEN LIMITED EXAM DATE: 10/06/2019 12:00 AM CDT HISTORY: Right upper quadrant pain. COMPARISON: None. TECHNIQUE: Grayscale and color Doppler imaging of the right upper quadrant was performed. FINDINGS: The liver has normal echotexture without focal lesion identified. The main portal vein has normal hepatopetal flow. No shadowing gallstones are seen. No pericholecystic fluid or gallbladder wall thickening. The common bile duct is normal caliber. The pancreas is not well-visualized due to overlying bowel gas. No hydronephrosis or shadowing renal stones are identified. The right kidney is normal in size. The visualized portions of the IVC and aorta are patent. IMPRESSION: No acute abdominal findings are seen.
--- NOTE | 2019-10-06 20:28 | RADIOLOGY REPORT (SQ) ---
CT ABDOMEN PELVIS WITH IV CONTRAST EXAM DATE: 10/06/2019 12:00 AM CDT HISTORY: Left upper quadrant pain status post hysterectomy. COMPARISON: 01/31/2019 TECHNIQUE: CT scan of the abdomen and pelvis was performed with IV contrast. This exam was performed according to our departmental dose-optimization program, which includes automated exposure control, adjustment of the mA and/or kV according to patient size and/or use of iterative reconstruction technique. FINDINGS: The lung bases are clear. No pleural or pericardial effusions. No hiatal hernia with prior gastric surgery noted. There is a focal area of hypodensity within the medial spleen. The liver, gallbladder, spleen, pancreas, and adrenal glands are unremarkable with a tiny nonobstructing stone in the right kidney. No hydronephrosis. Pelvic organs are grossly unremarkable. No evidence of small bowel obstruction or acute appendicitis. No evidence of acute diverticulitis. No adenopathy, free fluid, or free air is identified. The aorta is normal in caliber. No acute bony findings are seen. No abnormal body wall hernia. IMPRESSION: Focal hypodensity in the medial spleen, which may represent focal splenic infarction.
[2019-10-06] MEDS ORDERED: ONDANSETRON HCL INJ/PF 4 MG/2 ML SDV IV PRN (22:52)
--- NOTE | 2019-10-06 22:52 | PDOC H&P ---
History of Present Illness Patient complains of: left sided abdominal pain History of Present Illness: GRETTA CHAHAL is a 24 year old female patient presenting to the emergency department with left upper quadrant abdominal pain. Patient reports she had a total gastrectomy done approximately 3 weeks ago. 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 she states she has had severe left upper quadrant pain since the time of the surgery with nausea She presented here 3 days ago with similar complaints and ultrasound was obtained which showed no significant findings sent home. She is been in contact with her surgeon in [place] at the [facility] who I performed a gastrectomy who suggested Motrin for her pain. Today she returns to the emergency room with similar left upper quadrant pains having difficulty holding down fluids and food because of the pain. A work-up in the emergency room showed an elevated lipase in the thousand level. She denies any vomiting she does complain of nausea. Past Medical History Cardiac Medical History: Denies: None, Atrial Fibrillation, Congestive Heart Failure, Coronary Artery Disease, DVT, Myocardial Infarction, Hyperlipidema, Hypertension, Peripheral Vascular Disease, Pulmonary Embolism, Heart Murmur, Other Pulmonary Medical History: Denies: None, Asthma, Bronchitis, Chronic Obstructive Pulmonary Disease (COPD), Intubation, Pneumonia, Respiratory Failure, Sleep Apnea, Tuberculosis, Other EENT Medical History: Denies: None, Cataracts, Eyes, Ears, Nose, Throat, Other Psychiatric Medical History: Reports: Depression Past Surgical History Past Surgical History: Reports: Appendectomy, Other - [place] teeth, total gastrectomy Social History Lives with: Spouse/Significant other Smoking Status: Never Smoker Frequency of Alcohol Use: None Hx Recreational Drug Use: No Family History Family History: None, Malignancy Parental Family History Reviewed: Yes - Positive CDH 1 gene for gastric cancer Children Family History Reviewed: NA Sibling(s) Family History Reviewed.: NA Medication/Allergy Home Medications: Citalopram Hydrobromide [Celexa 40 mg Tablet] 40 mg PO DAILY 02/01/19 Trazodone HCl [Desyrel 50 mg Tablet] 50 mg PO QHS 02/01/19 Allergies/Adverse Reactions: No Known Allergies Allergy (Verified 10/04/19 16:57) Review of Systems Constitutional: PRESENT: fatigue Eyes: ABSENT: as per HPI, visual disturbances, other Ears: ABSENT: as per HPI, hearing changes, other Nose, Mouth, and Throat: ABSENT: as per HPI, headache(s), mouth pain, sore throat, vertigo, other Breasts: ABSENT: as per HPI, other Cardiovascular: ABSENT: as per HPI, chest pain, dyspnea on exertion, edema, orthropnea, palpitations, other Respiratory: ABSENT: as per HPI, cough, dyspnea, hemoptysis, sputum, other Gastrointestinal: PRESENT: abdominal pain, nausea Genitourinary: ABSENT: as per HPI, difficulty urinating, dysuria, hematuria, nocturia, other Musculoskeletal: ABSENT: as per HPI, back pain, deformity, joint swelling, muscle weakness, other Integumentary: ABSENT: as per HPI, diaphoresis, erythema, lesions, pruritus, rash, wounds, other Neurological: ABSENT: as per HPI, abnormal gait, abnormal movements, abnormal speech, confusion, convulsions, dizziness, focal weakness, frequent falls, lack of coordination, memory loss, numbness, paresthesias, restless legs, syncope, tingling, tremor(s), vertigo, weakness, other Psychiatric: ABSENT: as per HPI, anxiety, depression, hallucinations, homidical ideation, suicidal ideation, other Endocrine: ABSENT: as per HPI, cold intolerance, flushing, heat intolerance, menstrual abnormalities, polydipsia, polyphagia, polyuria, other Hematologic/Lymphatic: ABSENT: as per HPI, easy bleeding, easy bruising, lymphadenopathy, other Allergic/Immunologic: ABSENT: as per HPI, seasonal rhinorrhea, other Physical Exam Vital Signs: Temp Pulse Resp BP Pulse Ox 98.5 F 143 H 20 139/65 H 99 10/06/19 14:38 10/06/19 14:38 10/06/19 14:38 10/06/19 14:38 10/06/19 14:38 Intake & Output 10/05/19 10/06/19 10/07/19 06:59 06:59 06:59 Intake Total 1999 Balance 1999 Weight 66 kg General appearance: PRESENT: mild distress Head exam: PRESENT: normocephalic Eye exam: PRESENT: EOMI Ear exam: PRESENT: normal external ear exam Mouth exam: PRESENT: moist Neck exam: PRESENT: full ROM Respiratory exam: PRESENT: clear to auscultation jose Cardiovascular exam: PRESENT: RRR Pulses: PRESENT: normal radial pulses, normal femoral pulses Vascular exam: PRESENT: normal capillary refill Breast: PRESENT: Normal GI/Abdominal exam: PRESENT: tenderness - In his left upper quadrant, other - Surgical scar healing well Rectal exam: PRESENT: deferred Extremities exam: PRESENT: full ROM Musculoskeletal exam: PRESENT: full ROM Neurological exam: PRESENT: alert, awake, oriented to person, oriented to place Psychiatric exam: PRESENT: appropriate affect Skin exam: PRESENT: dry Results Laboratory Results: 10/06/19 16:30 10/06/19 16:30 10/06/19 10/06/19 10/06/19 15:05 16:30 16:30 WBC 4.8 RBC 4.71 Hgb 14.3 Hct 42.0 MCV 89 MCH 30.3 MCHC 33.9 RDW 13.6 Plt Count 357 Seg Neutrophils % 55.2 Sodium 141.0 Potassium 4.9 Chloride 106 Carbon Dioxide 25 Anion Gap 10 BUN 10 Creatinine 0.80 Est GFR ( Amer) > 60 Glucose 79 Lactic Acid Calcium 9.9 Total Bilirubin 0.4 AST 36 Alkaline Phosphatase 66 Total Protein 7.6 Albumin 4.8 Lipase 1010.6 H Urine Color YELLOW Urine Appearance TURBID Urine pH 5.0 Ur Specific [place] 1.034 Urine Protein 100 H Urine Glucose (UA) NEGATIVE Urine Ketones 20 H Urine Blood NEGATIVE Urine Nitrite NEGATIVE Ur Leukocyte Esterase NEGATIVE Urine WBC (Auto) 2 Urine RBC (Auto) 12 10/06/19 16:30 WBC RBC Hgb Hct MCV MCH MCHC RDW Plt Count Seg Neutrophils % Sodium Potassium Chloride Carbon Dioxide Anion Gap BUN Creatinine Est GFR ( Amer) Glucose Lactic Acid 1.0 Calcium Total Bilirubin AST Alkaline Phosphatase Total Protein Albumin Lipase Urine Color Urine Appearance Urine pH Ur Specific [place] Urine Protein Urine Glucose (UA) Urine Ketones Urine Blood Urine Nitrite Ur Leukocyte Esterase Urine WBC (Auto) Urine RBC (Auto) Impressions: Abdomen Ultrasound 10/06/19 00:00 IMPRESSION: No acute abdominal findings are seen. Assessment & Plan - Plan Summary Plan Summary: Impression approximately 2 weeks status post a open total gastrectomy as a prophylactic measure for positive CDH 1 gene. Procedure performed at [facility]. 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 Review of her CAT scan does show some inflammation around the Meghan anastomosis that is abutting the body the pancreas which may explain the elevated lipase. Plan we will admit the patient for pain control and IV hydration make her n.p.o. We will start her on oral Carafate high-dose proton pump inhibitor. We will make consideration for upper endoscopy to rule out anastomotic ulcer. There is no evidence of leak on her CT scan so there is no indication in the yunier rt-term for reoperation however there does look like there is some inflammation around the around the enteroenterostomy from the Meghan limb to the enteric limb.
--- NOTE | 2019-10-06 22:53 | RADIOLOGY REPORT (SQ) ---
CLINICAL INDICATION: s/p gastrectomy, c/o epigastric pain. . TECHNIQUE: Noncontrast spiral axial CT imaging was obtained of the abdomen and pelvis with multiplanar reconstructions. This exam was performed according to our departmental dose-optimization program, which includes automated exposure control, adjustment of the mA and/or kV according to patient size and/or use of iterative reconstruction techniques. 2225 COMPARISON: October 06, 2019. 1953 hours CORRELATION: None. FINDINGS: Abdomen: The lung bases are grossly clear. The heart is of normal size. No evidence of pleural or pericardial fluid. The liver is of normal size contour and attenuation. The gallbladder is nondistended without inflammatory change. The pancreas is of grossly normal contour on this noncontrast examination. The spleen is unremarkable. Abnormality within the spleen identified earlier today is not appreciated on current noncontrast imaging The adrenals are unremarkable. The kidneys demonstrate 2 small small foci of persistent localization of contrast to the midpole of the right kidney. No associated mass. A focal pyelonephritis could have this appearance . Excreted contrast within the collecting systems There is no evidence of free air. No free fluid. No bulky adenopathy. Abdominal aorta is nonaneurysmal. Pelvis: The bowel is nonobstructed. Contrast within the small bowel and stomach. Postsurgical change the stomach. No extraluminal contrast is seen.. Pelvic contents are unremarkable. The appendix is normal. Visualized bones are unremarkable. IMPRESSION: 2 small foci of persistent contrast retention within the parenchyma of the right kidney. This a nonspecific finding. Focal pyelonephritis could have this appearance.
[2019-10-06] MEDS ORDERED: HYDROMORPHONE HCL INJ/PF 2 MG/ML AMPULE IV PRN (22:59)
[2019-10-06] MEDS ORDERED: PANTOPRAZOLE SODIUM 40 MG VIAL IV ONE (23:30)
[2019-10-07] MEDS: SUCRALFATE 1 GM TABLET PO SCH ×4 (00:14→19:57)
[2019-10-07] MEDS: POTASSI CL 20 MEQ/D5-1/2NS 1L 1,000 ML IV PRN ×3 (02:04→22:42)
[2019-10-07] MEDS ORDERED: INFLUENZA QUAD (6MOS+) 2019-20 VAC 0.5 ML SYR IM ONE (02:29)
[2019-10-07] MEDS: HEPARIN SOD (PORCINE) 5,000 UNIT/ML 1 ML VIAL SUBCUT SCH ×3 (05:34→21:29)
[2019-10-07 06:09] LABS: ABSOLUTE EOSINOPHILS # (AUTO) 0.2 10^3/uL (0.0-0.6); ABSOLUTE LYMPHOCYTES (AUTO) 1.5 10^3/uL (0.5-4.7); ABSOLUTE MONOCYTES (AUTO) 0.5 10^3/uL (0.1-1.4); BASOPHILS % (AUTO) 0.6 % (0-2); EOSINOPHILS % (AUTO) 3.7 % (0-6); HEMATOCRIT 35.8 % (36.0-47.0); LYMPHOCYTES % (AUTO) 23.8 % (13-45); MEAN CORPUSCULAR HEMOGLOBIN 30.1 pg (27.0-33.4); MEAN CORPUSCULAR HGB CONC 33.9 g/dL (32.0-36.0); MEAN CORPUSCULAR VOLUME 89 fl (80-97); MONOCYTES % (AUTO) 7.9 % (3-13); PLATELET COUNT 272 10^3/uL (150-450); RED BLOOD COUNT 4.03 10^6/uL (3.72-5.28); RED CELL DISTRIBUTION WIDTH 13.3 % (11.5-14.0); TOTAL CELLS COUNTED % (AUTO) 100 %; WHITE BLOOD COUNT 6.3 10^3/uL (4.0-10.5)
[2019-10-07 06:12] LABS: HEMOGLOBIN 12.1 g/dL (12.0-15.5)
[2019-10-07 06:30] LABS: ALBUMIN 3.7 g/dL (3.5-5.0); ALKALINE PHOSPHATASE 50 U/L (38-126); ANION GAP 11 (5-19); ASPARTATE AMINO TRANSFERASE 25 U/L (14-36); BILIRUBIN,TOTAL 0.3 mg/dL (0.2-1.3); BLOOD UREA NITROGEN 4 mg/dL (7-20); CALCIUM 8.8 mg/dL (8.4-10.2); CARBON DIOXIDE 20 mmol/L (22-30); CHLORIDE 106 mmol/L (98-107); GLUCOSE 134 mg/dL (75-110)
[2019-10-07 06:37] LABS: POTASSIUM 3.9 mmol/L (3.6-5.0)
--- NOTE | 2019-10-07 08:16 | PDOC PROGRESS REPORT ---
Subjective Progress Note for:: 10/07/19 Subjective:: still nauseated\ dry heaving last pm still with pain Reason For Visit: PANCREATITIS Physical Exam Vital Signs: Temp Pulse Resp BP Pulse Ox 98.2 F 66 17 126/73 H 100 10/07/19 02:01 10/07/19 02:01 10/07/19 02:01 10/07/19 02:01 10/07/19 02:01 Intake & Output 10/06/19 10/07/19 10/08/19 06:59 06:59 06:59 Intake Total 1999 Balance 1999 Weight 68.9 kg General appearance: PRESENT: mild distress Head exam: PRESENT: normocephalic Eye exam: PRESENT: EOMI Ear exam: PRESENT: normal external ear exam Mouth exam: PRESENT: moist Neck exam: PRESENT: full ROM Respiratory exam: PRESENT: decreased breath sounds Cardiovascular exam: PRESENT: RRR Pulses: PRESENT: normal radial pulses, normal femoral pulses Vascular exam: PRESENT: normal capillary refill GI/Abdominal exam: PRESENT: soft Rectal exam: PRESENT: deferred Extremities exam: PRESENT: full ROM Musculoskeletal exam: PRESENT: full ROM Neurological exam: PRESENT: alert, awake, oriented to person, oriented to place Psychiatric exam: PRESENT: appropriate affect Skin exam: PRESENT: dry Results Laboratory Results: 10/07/19 04:59 10/07/19 04:59 10/06/19 10/06/19 10/06/19 15:05 16:30 16:30 WBC 4.8 RBC 4.71 Hgb 14.3 Hct 42.0 MCV 89 MCH 30.3 MCHC 33.9 RDW 13.6 Plt Count 357 Seg Neutrophils % 55.2 Sodium 141.0 Potassium 4.9 Chloride 106 Carbon Dioxide 25 Anion Gap 10 BUN 10 Creatinine 0.80 Est GFR ( Amer) > 60 Glucose 79 Lactic Acid Calcium 9.9 Total Bilirubin 0.4 AST 36 Alkaline Phosphatase 66 Total Protein 7.6 Albumin 4.8 Lipase 1010.6 H Urine Color YELLOW Urine Appearance TURBID Urine pH 5.0 Ur Specific [place] 1.034 Urine Protein 100 H Urine Glucose (UA) NEGATIVE Urine Ketones 20 H Urine Blood NEGATIVE Urine Nitrite NEGATIVE Ur Leukocyte Esterase NEGATIVE Urine WBC (Auto) 2 Urine RBC (Auto) 12 10/06/19 10/07/19 10/07/19 16:30 04:59 04:59 WBC RBC Hgb Hct MCV MCH MCHC RDW Plt Count Seg Neutrophils % Sodium 136.6 L Potassium 3.9 D Chloride 106 Carbon Dioxide 20 L Anion Gap 11 BUN 4 L Creatinine 0.66 Est GFR ( Amer) > 60 Glucose 134 H Lactic Acid 1.0 Calcium 8.8 Total Bilirubin 0.3 AST 25 Alkaline Phosphatase 50 Total Protein 6.0 L Albumin 3.7 Lipase 546.0 H Urine Color Urine Appearance Urine pH Ur Specific [place] Urine Protein Urine Glucose (UA) Urine Ketones Urine Blood Urine Nitrite Ur Leukocyte Esterase Urine WBC (Auto) Urine RBC (Auto) 10/07/19 04:59 WBC 6.3 RBC 4.03 Hgb 12.1 D Hct 35.8 L MCV 89 MCH 30.1 MCHC 33.9 RDW 13.3 Plt Count 272 Seg Neutrophils % 64.0 Sodium Potassium Chloride Carbon Dioxide Anion Gap BUN Creatinine Est GFR ( Amer) Glucose Lactic Acid Calcium Total Bilirubin AST Alkaline Phosphatase Total Protein Albumin Lipase Urine Color Urine Appearance Urine pH Ur Specific [place] Urine Protein Urine Glucose (UA) Urine Ketones Urine Blood Urine Nitrite Ur Leukocyte Esterase Urine WBC (Auto) Urine RBC (Auto) Impressions: Abdomen Ultrasound 10/06/19 00:00 IMPRESSION: No acute abdominal findings are seen. Abdomen/Pelvis CT 10/06/19 21:44 IMPRESSION: 2 small foci of persistent contrast retention within the parenchyma of the right kidney. This a nonspecific finding. Focal pyelonephritis could have this appearance. Assessment & Plan - Plan Summary Plan Summary: s/p total gastrectomy admitted iwth abd pain, nausea, pancreatitis this am lipase down to 500 from 100 still nauseated dry heaves last pm ct reviewed, no leak inflammation around distal anastomosis plan- clear liquids today cont carafate
[2019-10-07] MEDS ORDERED: HYDROMORPHONE HCL INJ/PF 2 MG/ML AMPULE IV PRN (09:14)
[2019-10-07] MEDS: ONDANSETRON HCL INJ/PF 4 MG/2 ML SDV IV PRN ×3 (10:05→18:20)
[2019-10-07] MEDS: PANTOPRAZOLE SODIUM 40 MG VIAL IV SCH ×2 (10:05→21:29)
[2019-10-07] MEDS: HYDROMORPHONE HCL INJ/PF 2 MG/ML AMPULE IV PRN ×3 (14:40→22:04)
[2019-10-07] MEDS: PROMETHAZINE HCL INJ 25 MG/1 ML VIAL IV PRN (22:04)
[2019-10-08] MEDS: SUCRALFATE 1 GM TABLET PO SCH ×5 (01:26→23:09)
[2019-10-08] MEDS: PROMETHAZINE HCL INJ 25 MG/1 ML VIAL IV PRN ×4 (03:48→23:48)
[2019-10-08] MEDS: HYDROMORPHONE HCL INJ/PF 2 MG/ML AMPULE IV PRN ×5 (03:49→22:13)
[2019-10-08] MEDS: HEPARIN SOD (PORCINE) 5,000 UNIT/ML 1 ML VIAL SUBCUT SCH ×3 (05:57→21:29)
[2019-10-08] MEDS: POTASSI CL 20 MEQ/D5-1/2NS 1L 1,000 ML IV PRN ×2 (08:16→18:07)
--- NOTE | 2019-10-08 08:16 | PDOC PROGRESS REPORT ---
Subjective Progress Note for:: 10/08/19 Subjective:: feels better this am\\ less nausea iwth phenergan able to emily clears. Reason For Visit: PANCREATITIS Physical Exam Vital Signs: Temp Pulse Resp BP Pulse Ox 98.4 F 74 17 127/70 H 100 10/07/19 23:41 10/07/19 23:41 10/07/19 23:41 10/07/19 23:41 10/07/19 23:41 Intake & Output 10/07/19 10/08/19 10/09/19 06:59 06:59 06:59 Intake Total 1999 1987 Balance 1999 1987 Weight 68.9 kg 69.2 kg General appearance: PRESENT: no acute distress Head exam: PRESENT: normocephalic Eye exam: PRESENT: EOMI Ear exam: PRESENT: normal external ear exam Mouth exam: PRESENT: moist Neck exam: PRESENT: full ROM Respiratory exam: PRESENT: clear to auscultation jose Cardiovascular exam: PRESENT: RRR Pulses: PRESENT: normal radial pulses, normal femoral pulses Breast: PRESENT: Normal GI/Abdominal exam: PRESENT: soft, other - min tenderness left min abd and upper quadrent. Rectal exam: PRESENT: deferred Extremities exam: PRESENT: full ROM Musculoskeletal exam: PRESENT: full ROM Neurological exam: PRESENT: alert, awake, oriented to person, oriented to place Psychiatric exam: PRESENT: appropriate affect Skin exam: PRESENT: dry Results Laboratory Results: 10/07/19 04:59 10/07/19 04:59 10/08/19 07:25 Lipase 691.8 H Impressions: Abdomen Ultrasound 10/06/19 00:00 IMPRESSION: No acute abdominal findings are seen. Abdomen/Pelvis CT 10/06/19 21:44 IMPRESSION: 2 small foci of persistent contrast retention within the parenchyma of the right kidney. This a nonspecific finding. Focal pyelonephritis could have this appearance. Assessment & Plan - Plan Summary Plan Summary: s/p gastrectomy prophylactic, about 3 wks ago afia y reconstruction presented with left sided abd pain and elevated lipase w/u neg for gallstones ct with oral contrast, no leak however does have some inflammatory reaction around the "y" anastomois but no leak plan- will cont observation for now\\ her lipase this am around 6oo will start full liquids and recheck lipase tomorrow I suspect her pancreatitis is secondary to direct pancreatic inflammation due to the inflammation at the anastomosis which lies on top of the pancreas.
[2019-10-08] MEDS: PANTOPRAZOLE SODIUM 40 MG VIAL IV SCH ×2 (10:16→22:14)
[2019-10-08] MEDS: ONDANSETRON HCL INJ/PF 4 MG/2 ML SDV IV PRN (22:13)
[2019-10-09] MEDS ORDERED: ZOLPIDEM TARTRATE 5 MG TABLET PO PRN (02:35)
[2019-10-09] MEDS: HYDROMORPHONE HCL INJ/PF 2 MG/ML AMPULE IV PRN ×2 (03:28→07:40)
[2019-10-09] MEDS: POTASSI CL 20 MEQ/D5-1/2NS 1L 1,000 ML IV PRN (04:57)
[2019-10-09] MEDS: ONDANSETRON HCL INJ/PF 4 MG/2 ML SDV IV PRN (05:01)
[2019-10-09] MEDS: HEPARIN SOD (PORCINE) 5,000 UNIT/ML 1 ML VIAL SUBCUT SCH (05:54)
[2019-10-09] MEDS: SUCRALFATE 1 GM TABLET PO SCH (06:06)
--- NOTE | 2019-10-09 07:38 | PDOC DISCHARGE SUMMARY ---
General - Admit/Disc Date/PCP Admission Date/Primary Care Provider: 10/07/19 00:16 Discharge Date: 10/09/19 - Discharge Diagnosis Final Diagnosis: Status post total gastrectomy, pancreatitis - Assessment Summary: This is a 24-year-old female who presented to the emergency room mom 3 days ago with abdominal pain status post a total gastrectomy done at [facility] for hereditary gastric cancer. Patient was seen in the emergency room her work-up included a CT scan and ultrasound which showed pancreatitis on laboratory studies however there was no significant swelling of her pancreas. On the CT scan however there appeared to be some swelling and some mild inflammation around the enteroenterostomy the white portion of the Meghan-en-Y anastomosis. Because of abdominal pain and nausea she was admitted to the hospital for IV fluid resuscitation and monitoring of her pancreatitis. Following day her lipase came down to 500 range from initially thousand and she was feeling better but still complained of nausea. Her nausea was treated with IV Phenergan which improved her significantly. For lipase remained in the 5-600 range and she was started on a clear liquid diet was slowly advanced to full liquids. At the time of discharge she is afebrile with stable vital signs her nausea is resolved she still has some mild left-sided abdominal pain. She is on a research pro protocol for prophylactic gastrectomy at the [facility] and is been in contact with her surgeon there. They suggested her to be discharged with full liquid diet and to continue monitoring her pain she did not resolve in the next 2 to 3 days she will return to the [facility] for further follow-up. She will be discharged home with Percocet and a follow-up appointment with me in 1 week. She is to remain on a full liquid diet. - Additional Information Resuscitation Status: Full Code Discharge Diet: Full Liquids Discharge Activity: No Lifting Over 10 Pounds Referrals: OLIVER COTTER FNP-C [[employer] STAFF] - Follow up as needed Prescriptions: Oxycodone HCl/Acetaminophen [Percocet 7.5-325 mg Tablet] 1 each PO Q6HP PRN #20 tablet PRN Reason: Home Medications: Calcium Carbonate [Calcium] 500 mg PO DAILY 10/07/19 Multivitamin [Multiple Vitamins] 1 each PO DAILY 10/07/19 Paroxetine HCl [Paxil] 30 mg PO DAILY 10/07/19 Oxycodone HCl/Acetaminophen [Percocet 7.5-325 mg Tablet] 1 each PO Q6HP PRN #20 tablet 10/09/19 History of Present Illiness History of Present Illness: GRETTA CHAHAL is a 24 year old female patient presenting to the emergency department with left upper quadrant abdominal pain. Patient reports she had a total gastrectomy done approximately 3 weeks ago. 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 she states she has had severe left upper quadrant pain since the time of the surgery with nausea She presented here 3 days ago with similar complaints and ultrasound was obtained which showed no significant findings sent home. She is been in contact with her surgeon in [place] at the [facility] who I performed a gastrectomy who suggested Motrin for her pain. Today she returns to the emergency room with similar left upper quadrant pains having difficulty holding down fluids and food because of the pain. A work-up in the emergency room showed an elevated lipase in the thousand level. She denies any vomiting she does complain of nausea. Physical Exam Vital Signs: Temp Pulse Resp BP Pulse Ox 98.0 F 93 17 117/82 100 10/09/19 00:02 10/09/19 00:02 10/09/19 00:02 10/09/19 00:02 10/09/19 00:02 Intake & Output 10/08/19 10/09/19 10/10/19 06:59 06:59 06:59 Intake Total 1987 3422 Balance 1987 3422 Weight 69.2 kg 71.3 kg Results Laboratory Results: WBC 6.3 10^3/uL (4.0-10.5) 10/07/19 04:59 RBC 4.03 10^6/uL (3.72-5.28) 10/07/19 04:59 Hgb 12.1 g/dL (12.0-15.5) D 10/07/19 04:59 Hct 35.8 % (36.0-47.0) L 10/07/19 04:59 MCV 89 fl (80-97) 10/07/19 04:59 MCH 30.1 pg (27.0-33.4) 10/07/19 04:59 MCHC 33.9 g/dL (32.0-36.0) 10/07/19 04:59 RDW 13.3 % (11.5-14.0) 10/07/19 04:59 Plt Count 272 10^3/uL (150-450) 10/07/19 04:59 Lymph % (Auto) 23.8 % (13-45) 10/07/19 04:59 Wood % (Auto) 7.9 % (3-13) 10/07/19 04:59 Eos % (Auto) 3.7 % (0-6) 10/07/19 04:59 Baso % (Auto) 0.6 % (0-2) 10/07/19 04:59 Absolute Neuts (auto) 4.0 10^3/uL (1.7-8.2) 10/07/19 04:59 Absolute Lymphs (auto) 1.5 10^3/uL (0.5-4.7) 10/07/19 04:59 Absolute Monos (auto) 0.5 10^3/uL (0.1-1.4) 10/07/19 04:59 Absolute Eos (auto) 0.2 10^3/uL (0.0-0.6) 10/07/19 04:59 Absolute Basos (auto) 0.0 10^3/uL (0.0-0.2) 10/07/19 04:59 Seg Neutrophils % 64.0 % (42-78) 10/07/19 04:59 Sodium 136.6 mmol/L (137-145) L 10/07/19 04:59 Potassium 3.9 mmol/L (3.6-5.0) D 10/07/19 04:59 Chloride 106 mmol/L (98-107) 10/07/19 04:59 Carbon Dioxide 20 mmol/L (22-30) L 10/07/19 04:59 Anion Gap 11 (5-19) 10/07/19 04:59 BUN 4 mg/dL (7-20) L 10/07/19 04:59 Creatinine 0.66 mg/dL (0.52-1.25) 10/07/19 04:59 Est GFR ( Amer) > 60 (>60) 10/07/19 04:59 Est GFR (MDRD) Non-Af > 60 (>60) 10/07/19 04:59 Glucose 134 mg/dL (75-110) H 10/07/19 04:59 Lactic Acid 1.0 mmol/L (0.7-2.1) 10/06/19 16:30 Calcium 8.8 mg/dL (8.4-10.2) 10/07/19 04:59 Total Bilirubin 0.3 mg/dL (0.2-1.3) 10/07/19 04:59 Direct Bilirubin 0.0 mg/dL (0.0-0.4) 10/07/19 04:59 Neonat Total Bilirubin Not Reportable 10/07/19 04:59 Neonat Direct Bilirubin Not Reportable 10/07/19 04:59 Neonat Indirect Bili Not Reportable 10/07/19 04:59 AST 25 U/L (14-36) 10/07/19 04:59 ALT 36 U/L (<35) H 10/07/19 04:59 Alkaline Phosphatase 50 U/L (38-126) 10/07/19 04:59 Total Protein 6.0 g/dL (6.3-8.2) L 10/07/19 04:59 Albumin 3.7 g/dL (3.5-5.0) 10/07/19 04:59 Lipase 691.8 U/L (23-300) H 10/08/19 07:25 Urine Color YELLOW 10/06/19 15:05 Urine Appearance TURBID 10/06/19 15:05 Urine pH 5.0 (5.0-9.0) 10/06/19 15:05 Ur Specific [place] 1.034 10/06/19 15:05 Urine Protein 100 mg/dL (NEGATIVE) H 10/06/19 15:05 Urine Glucose (UA) NEGATIVE mg/dL (NEGATIVE) 10/06/19 15:05 Urine Ketones 20 mg/dL (NEGATIVE) H 10/06/19 15:05 Urine Blood NEGATIVE (NEGATIVE) 10/06/19 15:05 Urine Nitrite NEGATIVE (NEGATIVE) 10/06/19 15:05 Urine Bilirubin NEGATIVE (NEGATIVE) 10/06/19 15:05 Urine Urobilinogen NEGATIVE mg/dL (<2.0) 10/06/19 15:05 Ur Leukocyte Esterase NEGATIVE (NEGATIVE) 10/06/19 15:05 Urine WBC (Auto) 2 /HPF 10/06/19 15:05 Urine RBC (Auto) 12 /HPF 03/13/20 15:05 Urine Mucus (Auto) MANY /LPF 10/06/19 15:05 Urine Ascorbic Acid 40 (NEGATIVE) H 10/06/19 15:05 Urine HCG, Qual NEGATIVE (NEGATIVE) 10/06/19 15:05 Impressions: Abdomen Ultrasound 10/06/19 00:00 IMPRESSION: No acute abdominal findings are seen. Abdomen/Pelvis CT 10/06/19 00:00 IMPRESSION: Focal hypodensity in the medial spleen, which may represent focal splenic infarction. Abdomen/Pelvis CT 10/06/19 21:44 IMPRESSION: 2 small foci of persistent contrast retention within the parenchyma of the right kidney. This a nonspecific finding. Focal pyelonephritis could have this appearance.
[2019-10-09 08:05] VITALS: BP 112/68
== END 2019-10-09 10:35 | disposition home or self-care (01) | DRG 440 ==
LOC: ER 14:31 → EH 10-07 00:16 → 5 10-07 01:55 → 4W 10-09 04:23
PROVIDERS: ADMIT Surgery; ATTEND Surgery
DX: K85.90 Acute pancreatitis without necrosis or infection, unspecified (principal); F32.9 Major depressive disorder, single episode, unspecified; Z90.3 Acquired absence of stomach [part of]; Z85.028 Personal history of other malignant neoplasm of stomach; Z79.899 Other long term (current) drug therapy
CPT/HCPCS: 36415; 74176; 74177; 76705; 80053; 81001; 81025; 83605; 83690; 85025; 96361; 96374; 96375; 96376; 99284; C9113; J1170; J2270; J2405; J2550; J3480; J7030; J7120

== ENCOUNTER 2019-10-24 18:43 | Inpatient (IN) | payer BC, OTHER ==
[2019-10-24] MEDS ORDERED: PROCHLORPERAZINE EDISYLATE INJ 10 MG/2 ML VIAL IM ONE (19:28)
[2019-10-24] MEDS ORDERED: RINGERS SOLUTION,LACTATED 1,000 ML IV ONE ×2 (19:30→21:45)
--- NOTE | 2019-10-24 19:34 | ER Document Report ---
ED Medical Screen (RME) - General Chief Complaint: Rib Pain Stated Complaint: LEFT RIB PAIN Time Seen by Provider: 10/24/19 19:24 Notes: Patient is a 24-year-old female who presents to the emergency department with a chief complaint of left abdominal pain and left rib pain. Patient had a gastrectomy at the end of August. She was also recently admitted for pancreatitis. Patient states that she has not been able to keep any food down. Patient has been taking Compazine at home, but has had little relief. Patient is followed by Dr. Reza here in the area for postop. She had her gastrectomy at the [facility] by Dr. Lopez. Exam: Dry mucous membranes. I have greeted and performed a rapid initial assessment of this patient. A comprehensive ED assessment and evaluation of the patient, analysis of test results and completion of medical decision making process will be conducted by an additional ED providers. TRAVEL OUTSIDE OF THE [place] IN LAST 30 DAYS: No - Related Data Allergies/Adverse Reactions: No Known Allergies Allergy (Verified 10/24/19 19:22) Past Medical History - Social History Frequency of alcohol use: None Drug Abuse: None - Past Medical History Cardiac Medical History: Denies: Hx Atrial Fibrillation, Hx Congestive Heart Failure, Hx Coronary Artery Disease, Hx DVT, Hx Heart Attack, Hx Hypercholesterolemia, Hx Hypertension, Hx Peripheral Vascular Disease, Hx Pulmonary Embolism, Hx Heart Murmur Pulmonary Medical History: Denies: Hx Asthma, Hx Bronchitis, Hx COPD, Hx Pneumonia, Hx Intubation, Hx Respiratory Failure, Hx Sleep Apnea, Hx Tuberculosis Renal/ Medical History: Denies: Hx Peritoneal Dialysis Psychiatric Medical History: Reports: Hx Depression Past Surgical History: Reports: Hx Abdominal Surgery - gastrectomy, Hx Appendectomy, Other - [place] teeth, total gastrectomy Physical Exam - Vital signs Vitals: Temp Pulse Resp BP Pulse Ox 98.2 F 119 H 18 132/94 H 99 10/24/19 18:55 10/24/19 18:55 10/24/19 18:55 10/24/19 18:55 10/24/19 18:55 Course - Vital Signs Vital signs: Temp Pulse Resp BP Pulse Ox 98.2 F 119 H 18 132/94 H 99 10/24/19 18:55 10/24/19 18:55 10/24/19 18:55 10/24/19 18:55 10/24/19 18:55
[2019-10-24] MEDS ORDERED: FENTANYL CITRATE INJ/PF 100 MCG/2 ML AMPUL IV ONE (20:26)
--- NOTE | 2019-10-24 20:29 | ER Document Report ---
ED General - General Chief Complaint: Rib Pain Stated Complaint: LEFT RIB PAIN Time Seen by Provider: 10/24/19 19:24 Primary Care Provider: MADDY GARCIA FNP [Primary Care Provider] - Follow up as needed TRAVEL OUTSIDE OF THE [place] IN LAST 30 DAYS: No - HPI Notes: Chief complaint: Left upper quadrant pain, nausea and vomiting This is a 24-year-old female who is status post a total gastrectomy done in August at [facility] for hereditary gastric cancer. She presents the emergency department here approximately 3 weeks ago with vomiting dehydration and abdominal pain and was at that time found to have acute pancreatitis. She was admitted to the surgical service by Dr. Will Tiwari. She improved with IV hydration and conservative management. She was discharged home but says that since that time she is continued to have intermittent nausea and vomiting relatively resistant to prescribed antiemetics including Zofran, Phenergan and Compazine. She indicates she is losing weight and becoming weaker. She continues to complain of intermittent discomfort left upper quadrant abdomen currently described as 5/10 intensity. She denies fever chills. She denies diarrhea. She says she is unable to eat due to nausea and vomiting and her oral fluid intake within the last 24 hours has been poor. Patient was seen in the emergency room her work-up included a CT scan and ult rasound which showed pancreatitis on laboratory studies however there was - Related Data Allergies/Adverse Reactions: No Known Allergies Allergy (Verified 10/24/19 19:22) Past Medical History - General Information source: Patient, [facility] Records - Social History Smoking Status: Never Smoker Frequency of alcohol use: None Drug Abuse: None Family History: None, Malignancy Patient has suicidal ideation: No Patient has homicidal ideation: No - Past Medical History Cardiac Medical History: Denies: Hx Atrial Fibrillation, Hx Congestive Heart Failure, Hx Coronary Artery Disease, Hx DVT, Hx Heart Attack, Hx Hypercholesterolemia, Hx Hypertension, Hx Peripheral Vascular Disease, Hx Pulmonary Embolism, Hx Heart Murmur Pulmonary Medical History: Denies: Hx Asthma, Hx Bronchitis, Hx COPD, Hx Pneumonia, Hx Intubation, Hx Respiratory Failure, Hx Sleep Apnea, Hx Tuberculosis Renal/ Medical History: Denies: Hx Peritoneal Dialysis Psychiatric Medical History: Reports: Hx Depression Past Surgical History: Reports: Hx Abdominal Surgery - gastrectomy, Hx Appendectomy, Other - [place] teeth, total gastrectomy Review of Systems - Review of Systems Notes: Constitutional: Negative for fever. HENT: Negative for sore throat. Eyes: Negative for visual changes. Cardiovascular: Negative for chest pain. Respiratory: Negative for shortness of breath. Gastrointestinal: As per HPI. Genitourinary: Negative for dysuria. Musculoskeletal: Negative for back pain. Skin: Negative for rash. Neurological: Negative for headaches, weakness or numbness. 10 point ROS negative except as marked above and in HPI. Physical Exam - Vital signs Vitals: Temp Pulse Resp BP Pulse Ox 98.2 F 119 H 18 132/94 H 99 10/24/19 18:55 10/24/19 18:55 10/24/19 18:55 10/24/19 18:55 10/24/19 18:55 - Notes Notes: GENERAL: Slender female approximately stated age who is actively vomiting and appears dehydrated. SKIN: Pale with diminished turgor. No rashes. HEAD: Normocephalic atraumatic. EYES: PERRLA. EOMI. Conjunctivae and sclerae clear. EARS: CANALS AND TMS CLEAR. NOSE: CLEAR. MOUTH: Tacky oral mucosa. Good dentition. No stridor or edema. No drooling. NECK: Supple. No masses or thyromegaly. No adenopathy. Carotids 2+ without bruits. No JVD. BACK: Symmetrical without tenderness. CHEST: Respirations unlabored. Breath sounds clear and symmetrical. HEART: Regular rhythm. No murmur gallop or rub. ABDOMEN: Healed upper midline surgical scar. Moderately tender in left upper quadrant. Soft without masses, organomegaly or rebound. Bowel sounds normally active. No bruits. GENITALIA: Deferred. EXTREMITIES: No edema. No calf tenderness. Cap refill less than 1.5 seconds. Dorsalis pedis and posterior tibial pulses 3+ and symmetrical. NEUROLOGICAL: GCS 15. Alert and oriented x3. Fluent speech. Cranial nerves II through XII intact. Sensorimotor and cerebellar normal. Normal tone. PSYCHIATRIC: Appropriate affect. Course - Re-evaluation Re-evalutation: 10/24/19 21:59 Clinically this lady looks very dehydrated. Her BUN and creatinine are relatively normal but her CO2 is 16 and her gap is 21. I requested a serum lactate, salicylate level and venous blood gas. She is getting a second liter of lactated Ringer's IV now. Case was discussed in detail with Dr. Will Tiwari her from surgery who is very familiar with her from recent inpatient care. He agrees with current plan and would also like her to get a CT with IV contrast after we have rehydrated her. He will see her thereafter for consulta tion. We do note that her lipase level is still elevated in the 400s although this is trending down from her earlier values. - Vital Signs Vital signs: Temp Pulse Resp BP Pulse Ox 98.2 F 119 H 18 132/94 H 99 10/24/19 18:55 10/24/19 18:55 10/24/19 18:55 10/24/19 18:55 10/24/19 18:55 - Laboratory Result Diagrams: 10/24/19 20:17 10/24/19 20:17 Laboratory results interpreted by me: 10/24/19 10/24/19 10/24/19 20:17 20:17 20:17 Seg Neutrophils % 81.1 H VBG pCO2 VBG HCO3 Carbon Dioxide 16 L Anion Gap 21 H BUN 4 L Calcium 10.5 H Albumin 5.3 H Lipase 472.3 H Urine Protein Urine Ketones Salicylates < 1.0 L 10/24/19 10/24/19 21:00 22:00 Seg Neutrophils % VBG pCO2 32.4 L VBG HCO3 17.4 L Carbon Dioxide Anion Gap BUN Calcium Albumin Lipase Urine Protein 100 H Urine Ketones 80 H Salicylates Discharge - Discharge Clinical Impression: Dehydration, Status post partial gastrectomy Vomiting Qualifiers: Vomiting type: unspecified Vomiting Intractability: intractable Nausea presence: with nausea Qualified Code(s): R11.2 - Nausea with vomiting, un specified Condition: Fair Disposition: ADMITTED INPATIENT Admitting Provider: Surgicalist Unit Admitted: Surgical Floor Referrals: MADDY GARCIA FNP [Primary Care Provider] - Follow up as needed
[2019-10-24 20:32] LABS: ABSOLUTE LYMPHOCYTES (AUTO) 1.1 10^3/uL (0.5-4.7); ABSOLUTE MONOCYTES (AUTO) 0.4 10^3/uL (0.1-1.4); ABSOLUTE NEUT (AUTO) 6.2 10^3/uL (1.7-8.2); BASOPHILS % (AUTO) 0.4 % (0-2); EOSINOPHILS % (AUTO) 0.1 % (0-6); HEMATOCRIT 43.9 % (36.0-47.0); HEMOGLOBIN 15.2 g/dL (12.0-15.5); LYMPHOCYTES % (AUTO) 13.8 % (13-45); MEAN CORPUSCULAR HEMOGLOBIN 30.1 pg (27.0-33.4); MEAN CORPUSCULAR HGB CONC 34.8 g/dL (32.0-36.0); MEAN CORPUSCULAR VOLUME 87 fl (80-97); MONOCYTES % (AUTO) 4.6 % (3-13); PLATELET COUNT 365 10^3/uL (150-450); RED BLOOD COUNT 5.07 10^6/uL (3.72-5.28); SEGMENTED NEUTROPHILS % (AUTO) 81.1 % (42-78); TOTAL CELLS COUNTED % (AUTO) 100 %; WHITE BLOOD COUNT 7.6 10^3/uL (4.0-10.5)
[2019-10-24 20:40] LABS: INTERNATIONAL RATION (INR) 1.19; PROTHROMBIN TIME 15.2 SEC (11.4-15.4)
[2019-10-24 20:41] LABS: PARTIAL THROMBOPLASTIN TIME 26.4 SEC (23.5-35.8)
[2019-10-24 20:45] LABS: ALBUMIN 5.3 g/dL (3.5-5.0); ALKALINE PHOSPHATASE 72 U/L (38-126); ASPARTATE AMINO TRANSFERASE 17 U/L (14-36); BILIRUBIN,DIRECT 0.1 mg/dL (0.0-0.4); BILIRUBIN,TOTAL 0.5 mg/dL (0.2-1.3); BLOOD UREA NITROGEN 4 mg/dL (7-20); CALCIUM 10.5 mg/dL (8.4-10.2); GLUCOSE 109 mg/dL (75-110); POTASSIUM 4.3 mmol/L (3.6-5.0); TOTAL PROTEIN 8.2 g/dL (6.3-8.2)
[2019-10-24 20:50] LABS: CARBON DIOXIDE 16 mmol/L (22-30); CHLORIDE 102 mmol/L (98-107)
[2019-10-24 20:51] LABS: ANION GAP 21 (5-19)
--- NOTE | 2019-10-24 21:07 | RADIOLOGY REPORT (SQ) ---
EXAM DESCRIPTION: XR ABDOMEN SUPINE AND ERECT WITH CHEST (ABD ACUTE SERIES) COMPLETED DATE/TME: 10/24/2019 20:09 CLINICAL HISTORY: 24 years Female ,LUQ pain COMPARISON: None. TECHNIQUE: Frontal view chest x-ray and two views of the abdomen. FINDINGS: The cardiomediastinal silhouette appears unremarkable. No consolidating infiltrates or pleural effusions. No free air is identified beneath the hemidiaphragms. No dilated loops of bowel to suggest obstruction. Residual contrast in the colon. IMPRESSION: No acute plain film abnormality is identified.
[2019-10-24 21:31] LABS: APPEARANCE,URINE CLEAR; BILIRUBIN,URINE NEGATIVE (NEGATIVE); COLOR,URINE YELLOW; GLUCOSE, URINE NEGATIVE (NEGATIVE); KETONES,URINE 80 mg/dL (NEGATIVE); PROTEIN,URINE 100 mg/dL (NEGATIVE); URINE SPECIFIC GRAVITY 1.023; UROBILINOGEN,URINE NEGATIVE mg/dL (<2.0)
[2019-10-24] MEDS ORDERED: METOCLOPRAMIDE HCL INJ/PF 10 MG/2 ML SDV IV ONE (22:00)
[2019-10-24 22:20] LABS: VENOUS BLOOD BASE EXCESS -7.1 mmol/L; VENOUS BLOOD HCO3 17.4 mmol/L (20-32); VENOUS BLOOD PCO2 32.4 mmHg (35-63); VENOUS BLOOD PH 7.35 (7.30-7.42)
[2019-10-24] MEDS ORDERED: LORAZEPAM INJ 2 MG/1 ML VIAL IV PRN (23:00)
[2019-10-24] MEDS ORDERED: THIAMINE HCL INJ 200 MG/2 ML VIAL IM ONE (23:00)
--- NOTE | 2019-10-24 23:30 | PDOC H&P ---
History of Present Illness Admission Date/PCP: DARIUS COFFEY History of Present Illness: GRETTA CHAHAL is a 24 year old female This is a 24-year-old female who is status post a total gastrectomy done in August at [facility] for hereditary gastric cancer. She presents the emergency d epartment here approximately 3 weeks ago with vomiting dehydration and abdominal pain and was at that time found to have acute pancreatitis. She was admitted to the surgical service She improved with IV hydration and conservative management. She was discharged home but says that since that time she is continued to have intermittent nausea and vomiting relatively resistant to prescribed antiemetics including Zofran, Phenergan and Compazine. She indicates she is losing weight and becoming weaker. She continues to complain of intermittent discomfort left upper quadrant abdomen currently described as 5/10 intensity. She denies fever chills. She denies diarrhea. She says she is unable to eat due to nausea and vomiting and her oral fluid intake within the last 24 hours has been poor. After her admission here 2 weeks ago she then returned back to [place] and re- presented to [facility] and saw her surgeon. She was admitted to the hospital there for the pain she underwent extensive work-up at that time which included a CAT scan which did not show any intra-abdominal pathology she was monitored there for about 4 days her symptoms improved and she was discharged home. She was told by her surgeon that her pain issues are relatively "" normal" and not out of the extreme ordinary for the gastrectomy patient. However for the last couple days she has been increasingly nauseated and has m ore more difficulty eating and complaining of epigastric pain with vomiting she texted her surgeon at [facility] who recommended that she come to the emergency room this evening. I spoke with her surgeon over the phone who is at a loss for an explanation of her abdominal pain. Past Medical History Cardiac Medical History: Denies: Atrial Fibrillation, Congestive Heart Failure, Coronary Artery Disease, DVT, Myocardial Infarction, Hyperlipidema, Hypertension, Peripheral Vascular Disease, Pulmonary Embolism, Heart Murmur Pulmonary Medical History: Denies: Asthma, Bronchitis, Chronic Obstructive Pulmonary Disease (COPD), Intubation, Pneumonia, Respiratory Failure, Sleep Apnea, Tuberculosis Psychiatric Medical History: Reports: Depression Past Surgical History Past Surgical History: Reports: Appendectomy, Other - [place] teeth, total gastrectomy Social History Smoking Status: Never Smoker Frequency of Alcohol Use: Rare Hx Recreational Drug Use: No Hx Prescription Drug Abuse: No Family History Family History: None, Malignancy - Gastric cancer and history of pancreatic cancer in her cousin at 32 years old Parental Family History Reviewed: No Children Family History Reviewed: NA Sibling(s) Family History Reviewed.: NA Medication/Allergy Home Medications: Prochlorperazine Maleate [Compazine 10 mg Tablet] 10 mg PO ASDIR PRN 10/24/19 Zolpidem Tartrate [Ambien] 10 mg PO DAILY 10/24/19 Allergies/Adverse Reactions: No Known Allergies Allergy (Verified 10/24/19 19:22) Review of Systems Constitutional: PRESENT: as per HPI, anorexia, fatigue, weight loss Eyes: ABSENT: as per HPI, visual disturbances, other Ears: ABSENT: as per HPI, hearing changes, other Nose, Mouth, and Throat: ABSENT: as per HPI, headache(s), mouth pain, sore throa t, vertigo, other Breasts: ABSENT: as per HPI, other Cardiovascular: ABSENT: as per HPI, chest pain, dyspnea on exertion, edema, orthropnea, palpitations, other Respiratory: ABSENT: as per HPI, cough, dyspnea, hemoptysis, sputum, other Gastrointestinal: PRESENT: abdominal pain Genitourinary: ABSENT: as per HPI, difficulty urinating, dysuria, hematuria, nocturia, other Musculoskeletal: ABSENT: as per HPI, back pain, deformity, joint swelling, musc le weakness, other Integumentary: ABSENT: as per HPI, diaphoresis, erythema, lesions, pruritus, rash, wounds, other Neurological: ABSENT: as per HPI, abnormal gait, abnormal movements, abnormal speech, confusion, convulsions, dizziness, focal weakness, frequent falls, lack of coordination, memory loss, numbness, paresthesias, restless legs, syncope, tingling, tremor(s), vertigo, weakness, other Psychiatric: ABSENT: as per HPI, anxiety, depression, hallucinations, homidical ideation, suicidal ideation, other Hematologic/Lymphatic: ABSENT: as per HPI, easy bleeding, easy bruising, lymphadenopathy, other Allergic/Immunologic: ABSENT: as per HPI, seasonal rhinorrhea, other Physical Exam Vital Signs: Temp Pulse Resp BP Pulse Ox 98.2 F 119 H 18 132/94 H 99 10/24/19 18:55 10/24/19 18:55 10/24/19 18:55 10/24/19 18:55 10/24/19 18:55 Intake & Output 10/23/19 10/24/19 10/25/19 06:59 06:59 06:59 Intake Total 1000 Balance 1000 Weight 62.3 kg General appearance: PRESENT: mild distress Head exam: PRESENT: normocephalic Eye exam: PRESENT: EOMI Ear exam: PRESENT: normal external ear exam Mouth exam: PRESENT: dry mucosa Neck exam: PRESENT: full ROM Respiratory exam: PRESENT: clear to auscultation ojse Cardiovascular exam: PRESENT: RRR Pulses: PRESENT: normal radial pulses, normal femoral pulses Breast: PRESENT: Normal GI/Abdominal exam: PRESENT: soft, tenderness - Mild epigastric tenderness and left upper quadrant tenderness to palpation Rectal exam: PRESENT: deferred Extremities exam: PRESENT: full ROM Musculoskeletal exam: PRESENT: full ROM Neurological exam: PRESENT: alert, awake, oriented to person, oriented to place Psychiatric exam: PRESENT: anxious Skin exam: PRESENT: dry Results Laboratory Results: 10/24/19 20:17 10/24/19 20:17 10/24/19 10/24/19 10/24/19 20:17 20:17 21:00 WBC 7.6 RBC 5.07 Hgb 15.2 Hct 43.9 MCV 87 MCH 30.1 MCHC 34.8 RDW 13.0 Plt Count 365 Seg Neutrophils % 81.1 H VBG pH VBG pCO2 VBG HCO3 VBG Base Excess Sodium 138.5 Potassium 4.3 Chloride 102 Carbon Dioxide 16 L Anion Gap 21 H BUN 4 L Creatinine 0.70 Est GFR ( Amer) > 60 Glucose 109 Lactic Acid Calcium 10.5 H Total Bilirubin 0.5 AST 17 Alkaline Phosphatase 72 Total Protein 8.2 Albumin 5.3 H Lipase 472.3 H Urine Color YELLOW Urine Appearance CLEAR Urine pH 6.0 Ur Specific [place] 1.023 Urine Protein 100 H Urine Glucose (UA) NEGATIVE Urine Ketones 80 H Urine Blood NEGATIVE Urine Nitrite Cancelled Ur Leukocyte Esterase Cancelled Urine WBC (Auto) Cancelled Urine RBC (Auto) 5 10/24/19 10/24/19 22:00 22:00 WBC RBC Hgb Hct MCV MCH MCHC RDW Plt Count Seg Neutrophils % VBG pH 7.35 VBG pCO2 32.4 L VBG HCO3 17.4 L VBG Base Excess -7.1 Sodium Potassium Chloride Carbon Dioxide Anion Gap BUN Creatinine Est GFR ( Amer) Glucose Lactic Acid 1.0 Calcium Total Bilirubin AST Alkaline Phosphatase Total Protein Albumin Lipase Urine Color Urine Appearance Urine pH Ur Specific [place] Urine Protein Urine Glucose (UA) Urine Ketones Urine Blood Urine Nitrite Ur Leukocyte Esterase Urine WBC (Auto) Urine RBC (Auto) Impressions: Acute Abdomen Series 10/24/19 20:09 IMPRESSION: No acute plain film abnormality is identified. Assessment & Plan - Plan Summary Plan Summary: Impression abdominal pain recent history of pancreatitis status post total gastrectomy for CDH 1, genetic gastric cancer. 2. Dehydration 3. Recent history of pancreatitis Plan 1. IV hydration. 2. We will attempt to control her nausea with either Phenergan or Zofran. 3. We will obtain a CT scan to rule out any new findings that may explain her abdominal pain. 4. If CT scan findings are negative she will require nutritional support either using TPN or enteral feedings via jejunostomy tube. 5. I discussed this surgical plan with Dr. Lopez from the [facility] who is her original surgeon for the total gastrectomy and he is in agreement.
[2019-10-24] MEDS ORDERED: POLYETHYLENE GLYCOL 3350 POWDER 17 GM/1 PACKET PO ONE (23:42)
--- NOTE | 2019-10-25 00:42 | RADIOLOGY REPORT (SQ) ---
EXAM DESCRIPTION: CT scan of the abdomen and pelvis with IV contrast CLINICAL HISTORY: 24 years Female; LUQ pain. had a total Gastrectomy 08/2019 TECHNIQUE: CT of the abdomen and pelvis with intravenous contrast. All CT scans at this facility use dose modulation, iterative reconstruction, and/or weight based dosing when appropriate to reduce radiation dose to as low as reasonably achievable. This exam was performed according to our department optimization program which includes automated exposure control, adjustment of the mA and/or kv according to patient size and/or use of iterative reconstruction technique. COMPARISON: Unenhanced CT scan of the abdomen and pelvis October 06, 2019 FINDINGS: Lower chest: The lung bases are clear. The visualized portion of the heart and great vessels are normal. Abdomen: Liver and biliary tree:The liver and gallbladder appear normal. Portal vein and hepatic veins are patent. No biliary dilatation. Pancreas: Normal Spleen:Within normal limits Kidneys: Heterogeneous enhancement of the right kidney is identified. The pattern is suggestive of pyelonephritis. No possible small nonobstructing stone in the lower pole of the right kidney. No Hydronephrosis. Adrenal glands:Within normal limits Vascular structures:Within normal limits Retroperitoneum: Small, nonspecific retroperitoneal lymph nodes are seen. These do not meet size criteria for pathologic process and are not significantly changed Abdominal wall: Postsurgical changes seen in the mid upper abdomen. No hernia. GI: Postoperative change of gastrectomy. No bowel obstruction. No focal inflammation. The right colon is distended with oral contrast and sits on top of the bladder. Appendix: The appendix is not seen General: No free air. No free fluid Pelvis: Lymph nodes: No mass or lymphadenopathy Bladder: Unremarkable. Pelvis: No pelvic mass or adenopathy. Bones: No acute bone findings. IMPRESSION: 1. Postsurgical change of gastrectomy. No bowel obstruction. 2. Abnormal enhancement pattern of the mid and lower right kidney in a pattern consistent with pyelonephritis. No obstruction.
[2019-10-25] MEDS: POTASSI CL 20 MEQ/D5-1/2NS 1L 1,000 ML IV PRN ×3 (00:44→16:56)
[2019-10-25] MEDS ORDERED: ZOLPIDEM TARTRATE 5 MG TABLET ONE (00:57)
[2019-10-25] MEDS ORDERED: ZOLPIDEM TARTRATE 5 MG TABLET PO ONE (01:45)
[2019-10-25] MEDS ORDERED: INFLUENZA QUAD (6MOS+) 2019-20 VAC 0.5 ML SYR IM ONE (02:14)
[2019-10-25 05:57] LABS: ABSOLUTE LYMPHOCYTES (AUTO) 1.7 10^3/uL (0.5-4.7); ABSOLUTE MONOCYTES (AUTO) 0.6 10^3/uL (0.1-1.4); ABSOLUTE NEUT (AUTO) 4.5 10^3/uL (1.7-8.2); BASOPHILS % (AUTO) 0.5 % (0-2); EOSINOPHILS % (AUTO) 0.1 % (0-6); HEMATOCRIT 35.1 % (36.0-47.0); LYMPHOCYTES % (AUTO) 25.3 % (13-45); MEAN CORPUSCULAR HEMOGLOBIN 29.9 pg (27.0-33.4); MEAN CORPUSCULAR HGB CONC 35.2 g/dL (32.0-36.0); MEAN CORPUSCULAR VOLUME 85 fl (80-97); MONOCYTES % (AUTO) 8.5 % (3-13); PLATELET COUNT 303 10^3/uL (150-450); RED BLOOD COUNT 4.14 10^6/uL (3.72-5.28); RED CELL DISTRIBUTION WIDTH 12.6 % (11.5-14.0); SEGMENTED NEUTROPHILS % (AUTO) 65.6 % (42-78); TOTAL CELLS COUNTED % (AUTO) 100 %; WHITE BLOOD COUNT 6.8 10^3/uL (4.0-10.5)
[2019-10-25 05:58] LABS: ANION GAP 11 (5-19); BLOOD UREA NITROGEN 3 mg/dL (7-20); CARBON DIOXIDE 19 mmol/L (22-30); CHLORIDE 106 mmol/L (98-107); GLUCOSE 159 mg/dL (75-110); POTASSIUM 3.7 mmol/L (3.6-5.0)
[2019-10-25 06:02] LABS: HEMOGLOBIN 12.4 g/dL (12.0-15.5)
[2019-10-25] MEDS: HYDROMORPHONE HCL INJ/PF 2 MG/ML AMPULE IV PRN ×3 (06:04→21:28)
[2019-10-25] MEDS: ONDANSETRON HCL INJ/PF 4 MG/2 ML SDV IV PRN (06:08)
[2019-10-25] MEDS: FAMOTIDINE INJ/PF 20 MG/2 ML SDV IV SCH ×2 (09:12→21:28)
--- NOTE | 2019-10-25 09:32 | PDOC PROGRESS REPORT ---
Subjective Progress Note for:: 10/25/19 Subjective:: states she feels better, \ emily some clears Reason For Visit: HISTORY OF TOTAL GASTRECTOMY,ABDOMINAL PAIN Physical Exam Vital Signs: Temp Pulse Resp BP Pulse Ox 99 F 104 H 16 131/78 H 98 10/25/19 04:45 10/25/19 04:45 10/25/19 04:45 10/25/19 04:45 10/25/19 04:45 Intake & Output 10/24/19 10/25/19 10/26/19 06:59 06:59 06:59 Intake Total 2300 892 Balance 2300 892 Weight 62.3 kg General appearance: PRESENT: mild distress Head exam: PRESENT: normocephalic Eye exam: PRESENT: EOMI Mouth exam: PRESENT: moist Neck exam: PRESENT: full ROM Respiratory exam: PRESENT: clear to auscultation jose Cardiovascular exam: PRESENT: RRR Pulses: PRESENT: normal femoral pulses, normal dorsalis pedis pul Vascular exam: PRESENT: normal capillary refill Breast: PRESENT: Normal GI/Abdominal exam: PRESENT: soft, other - no cva tenderness on left or right Rectal exam: PRESENT: deferred Extremities exam: PRESENT: full ROM Musculoskeletal exam: PRESENT: full ROM Neurological exam: PRESENT: alert, oriented to person, oriented to place Psychiatric exam: PRESENT: appropriate affect Skin exam: PRESENT: dry Results Laboratory Results: 10/25/19 05:02 10/25/19 05:02 10/24/19 10/24/19 10/24/19 20:17 20:17 20:17 WBC 7.6 RBC 5.07 Hgb 15.2 Hct 43.9 MCV 87 MCH 30.1 MCHC 34.8 RDW 13.0 Plt Count 365 Seg Neutrophils % 81.1 H VBG pH VBG pCO2 VBG HCO3 VBG Base Excess Sodium 138.5 Potassium 4.3 Chloride 102 Carbon Dioxide 16 L Anion Gap 21 H BUN 4 L Creatinine 0.70 Est GFR ( Amer) > 60 Glucose 109 Lactic Acid Calcium 10.5 H Total Bilirubin 0.5 AST 17 Alkaline Phosphatase 72 Total Protein 8.2 Albumin 5.3 H Lipase 472.3 H Vitamin B12 681.0 Urine Color Urine Appearance Urine pH Ur Specific [place] Urine Protein Urine Glucose (UA) Urine Ketones Urine Blood Urine Nitrite Ur Leukocyte Esterase Urine WBC (Auto) Urine RBC (Auto) 10/24/19 10/24/19 10/24/19 21:00 22:00 22:00 WBC RBC Hgb Hct MCV MCH MCHC RDW Plt Count Seg Neutrophils % VBG pH 7.35 VBG pCO2 32.4 L VBG HCO3 17.4 L VBG Base Excess -7.1 Sodium Potassium Chloride Carbon Dioxide Anion Gap BUN Creatinine Est GFR ( Amer) Glucose Lactic Acid 1.0 Calcium Total Bilirubin AST Alkaline Phosphatase Total Protein Albumin Lipase Vitamin B12 Urine Color YELLOW Urine Appearance CLEAR Urine pH 6.0 Ur Specific [place] 1.023 Urine Protein 100 H Urine Glucose (UA) NEGATIVE Urine Ketones 80 H Urine Blood NEGATIVE Urine Nitrite Cancelled Ur Leukocyte Esterase Cancelled Urine WBC (Auto) Cancelled Urine RBC (Auto) 5 10/25/19 10/25/19 05:02 05:02 WBC 6.8 RBC 4.14 Hgb 12.4 D Hct 35.1 L MCV 85 MCH 29.9 MCHC 35.2 RDW 12.6 Plt Count 303 Seg Neutrophils % 65.6 VBG pH VBG pCO2 VBG HCO3 VBG Base Excess Sodium 136.1 L Potassium 3.7 Chloride 106 Carbon Dioxide 19 L Anion Gap 11 BUN 3 L Creatinine 0.55 Est GFR ( Amer) > 60 Glucose 159 H Lactic Acid Calcium 9.0 Total Bilirubin AST Alkaline Phosphatase Total Protein Albumin Lipase 667.0 H Vitamin B12 Urine Color Urine Appearance Urine pH Ur Specific [place] Urine Protein Urine Glucose (UA) Urine Ketones Urine Blood Urine Nitrite Ur Leukocyte Esterase Urine WBC (Auto) Urine RBC (Auto) Impressions: Acute Abdomen Series 10/24/19 20:09 IMPRESSION: No acute plain film abnormality is identified. Abdomen/Pelvis CT 10/24/19 21:58 IMPRESSION: 1. Postsurgical change of gastrectomy. No bowel obstruction. 2. Abnormal enhancement pattern of the mid and lower right kidney in a pattern consistent with pyelonephritis. No obstruction. Assessment & Plan - Plan Summary Plan Summary: chronic nausea and abd pain since her gastrectomy admitted for iv hydrationlast pm feels better this am considering j-tube placemnt and diagnostic laparoscpoy with poss endoscopy plan for today is trial of full liquids control nausea with ativan pt considering above surgery, still unsure if she wants to proceed iwth diagnostic laparoscopy and j-tuobe.
[2019-10-25] MEDS: PROMETHAZINE HCL INJ 25 MG/1 ML VIAL IV PRN ×3 (10:24→19:55)
[2019-10-25 12:28] LABS: APPEARANCE,URINE CLEAR; BILIRUBIN,URINE NEGATIVE (NEGATIVE); COLOR,URINE YELLOW; GLUCOSE, URINE NEGATIVE (NEGATIVE); KETONES,URINE TRACE mg/dL (NEGATIVE); LEUKOCYTE ESTERASE,URINE NEGATIVE (NEGATIVE); NITRITE,URINE NEGATIVE (NEGATIVE); PROTEIN,URINE NEGATIVE (NEGATIVE); URINE SPECIFIC GRAVITY 1.008; UROBILINOGEN,URINE NEGATIVE mg/dL (<2.0)
[2019-10-25] MEDS: CALCIUM CARBONATE 500 MG TAB.CHEW PO PRN ×2 (15:35→21:49)
[2019-10-25] MEDS: ZOLPIDEM TARTRATE 5 MG TABLET PO PRN (21:27)
[2019-10-25] MEDS ORDERED: FAMOTIDINE INJ/PF 20 MG/2 ML SDV IV ONE (23:45)
[2019-10-26] MEDS: PROMETHAZINE HCL INJ 25 MG/1 ML VIAL IV PRN ×4 (00:11→20:06)
[2019-10-26] MEDS: POTASSI CL 20 MEQ/D5-1/2NS 1L 1,000 ML IV PRN ×3 (00:48→20:33)
[2019-10-26] MEDS: ONDANSETRON HCL INJ/PF 4 MG/2 ML SDV IV PRN ×4 (01:58→23:02)
[2019-10-26] MEDS: HYDROMORPHONE HCL INJ/PF 2 MG/ML AMPULE IV PRN ×4 (03:45→23:01)
[2019-10-26] MEDS: LORAZEPAM INJ 2 MG/1 ML VIAL IV PRN (08:30)
[2019-10-26] MEDS: FAMOTIDINE INJ/PF 20 MG/2 ML SDV IV SCH ×2 (10:22→23:02)
[2019-10-26] MEDS: THIAMINE HCL 100 MG in NORMAL SALINE 50 ML IV SCH (10:23)
[2019-10-26] MEDS: CALCIUM CARBONATE 500 MG TAB.CHEW PO PRN (20:06)
[2019-10-26] MEDS: ZOLPIDEM TARTRATE 5 MG TABLET PO PRN (23:01)
[2019-10-27] MEDS: PROMETHAZINE HCL INJ 25 MG/1 ML VIAL IV PRN ×2 (02:28→08:59)
[2019-10-27] MEDS: CALCIUM CARBONATE 500 MG TAB.CHEW PO PRN ×3 (02:29→18:35)
[2019-10-27] MEDS: HYDROMORPHONE HCL INJ/PF 2 MG/ML AMPULE IV PRN ×3 (05:41→18:35)
[2019-10-27] MEDS: ONDANSETRON HCL INJ/PF 4 MG/2 ML SDV IV PRN ×3 (05:42→18:35)
[2019-10-27] MEDS: POTASSI CL 20 MEQ/D5-1/2NS 1L 1,000 ML IV PRN (05:45)
[2019-10-27] MEDS: FAMOTIDINE INJ/PF 20 MG/2 ML SDV IV SCH ×2 (09:01→21:38)
[2019-10-27] MEDS: THIAMINE HCL 100 MG in NORMAL SALINE 50 ML IV SCH (09:03)
--- NOTE | 2019-10-27 09:40 | PDOC PROGRESS REPORT ---
Subjective Progress Note for:: 10/27/19 Subjective:: feels better, tolerated full liquids wants to forego surgery and try soft foods again Reason For Visit: HISTORY OF TOTAL GASTRECTOMY,ABDOMINAL PAIN Physical Exam Vital Signs: Temp Pulse Resp BP Pulse Ox 98.2 F 95 17 127/91 H 100 10/26/19 23:09 10/26/19 23:09 10/26/19 23:09 10/26/19 23:09 10/26/19 23:09 Intake & Output 10/26/19 10/27/19 10/28/19 06:59 06:59 06:59 Intake Total 3335 3871 Output Total 950 Balance 2385 3871 Weight 62.4 kg 62.4 kg General appearance: PRESENT: no acute distress Head exam: PRESENT: normocephalic Eye exam: PRESENT: EOMI Mouth exam: PRESENT: moist Neck exam: PRESENT: full ROM Cardiovascular exam: PRESENT: RRR Pulses: PRESENT: normal radial pulses, normal femoral pulses Vascular exam: PRESENT: normal capillary refill Breast: PRESENT: Normal GI/Abdominal exam: PRESENT: soft Rectal exam: PRESENT: deferred Extremities exam: PRESENT: full ROM Musculoskeletal exam: PRESENT: full ROM Neurological exam: PRESENT: alert, awake, oriented to place Psychiatric exam: PRESENT: appropriate affect Skin exam: PRESENT: dry Results Laboratory Results: 10/25/19 05:02 10/25/19 05:02 Impressions: Acute Abdomen Series 10/24/19 20:09 IMPRESSION: No acute plain film abnormality is identified. Abdomen/Pelvis CT 10/24/19 21:58 IMPRESSION: 1. Postsurgical change of gastrectomy. No bowel obstruction. 2. Abnormal enhancement pattern of the mid and lower right kidney in a pattern consistent with pyelonephritis. No obstruction. Assessment & Plan - Plan Summary Plan Summary: will hold off on planned diagnostic laparoscopy and j-tube placement wants to try soft diet
[2019-10-27] MEDS: LORAZEPAM INJ 2 MG/1 ML VIAL IV PRN ×2 (15:03→21:38)
[2019-10-28] MEDS: HYDROMORPHONE HCL INJ/PF 2 MG/ML AMPULE IV PRN ×4 (00:31→22:49)
[2019-10-28] MEDS: ONDANSETRON HCL INJ/PF 4 MG/2 ML SDV IV PRN ×4 (00:32→20:47)
[2019-10-28] MEDS: ZOLPIDEM TARTRATE 5 MG TABLET PO PRN ×2 (00:32→22:49)
[2019-10-28] MEDS: LORAZEPAM INJ 2 MG/1 ML VIAL IV PRN ×4 (04:41→20:47)
--- NOTE | 2019-10-28 08:28 | PDOC PROGRESS REPORT ---
Subjective Progress Note for:: 10/28/19 Subjective:: still somewhat nauseated 'however appetite somewhat better eating some scrambeled eggs. Reason For Visit: HISTORY OF TOTAL GASTRECTOMY,ABDOMINAL PAIN Physical Exam Vital Signs: Temp Pulse Resp BP Pulse Ox 98.4 F 128 H 16 129/84 H 97 10/27/19 23:54 10/27/19 23:54 10/27/19 23:54 10/27/19 23:54 10/27/19 23:54 Intake & Output 10/27/19 10/28/19 10/29/19 06:59 06:59 06:59 Intake Total 3871 381 Balance 3871 381 Weight 62.4 kg 62.3 kg General appearance: PRESENT: no acute distress Head exam: PRESENT: normocephalic Eye exam: PRESENT: EOMI Mouth exam: PRESENT: moist Neck exam: PRESENT: full ROM Respiratory exam: PRESENT: clear to auscultation jose Cardiovascular exam: PRESENT: RRR Pulses: PRESENT: normal femoral pulses, normal dorsalis pedis pul Breast: PRESENT: Normal GI/Abdominal exam: PRESENT: soft Rectal exam: PRESENT: deferred Extremities exam: PRESENT: full ROM Musculoskeletal exam: PRESENT: full ROM Psychiatric exam: PRESENT: appropriate affect Skin exam: PRESENT: dry Results Laboratory Results: 10/25/19 05:02 10/25/19 05:02 10/25/19 12:00 Clean Catch Midstream Urine Culture - Final Mixed Urogenital Liz Impressions: Acute Abdomen Series 10/24/19 20:09 IMPRESSION: No acute plain film abnormality is identified. Abdomen/Pelvis CT 10/24/19 21:58 IMPRESSION: 1. Postsurgical change of gastrectomy. No bowel obstruction. 2. Abnormal enhancement pattern of the mid and lower right kidney in a pattern consistent with pyelonephritis. No obstruction. Assessment & Plan - Plan Summary Plan Summary: abdominal pain improved, however still hesistant to eat appetitie somew;hat improved again offered diagnositic laparoscopy ethan craig pt wishes to cont to try po intake will cont vitamin replacement
[2019-10-28] MEDS: FAMOTIDINE INJ/PF 20 MG/2 ML SDV IV SCH ×2 (09:55→22:49)
[2019-10-28] MEDS: POTASSI CL 20 MEQ/D5-1/2NS 1L 1,000 ML IV PRN ×2 (09:55→20:51)
[2019-10-28] MEDS: THIAMINE HCL 100 MG in NORMAL SALINE 50 ML IV SCH (12:19)
[2019-10-28] MEDS: PROMETHAZINE HCL INJ 25 MG/1 ML VIAL IV PRN ×2 (16:22→22:49)
[2019-10-29] MEDS: PROMETHAZINE HCL INJ 25 MG/1 ML VIAL IV PRN ×2 (02:50→08:53)
[2019-10-29] MEDS: CALCIUM CARBONATE 500 MG TAB.CHEW PO PRN ×3 (02:51→17:47)
[2019-10-29] MEDS: POTASSI CL 20 MEQ/D5-1/2NS 1L 1,000 ML IV PRN ×2 (06:08→16:25)
[2019-10-29] MEDS: HYDROMORPHONE HCL INJ/PF 2 MG/ML AMPULE IV PRN ×3 (06:08→18:24)
[2019-10-29] MEDS: ONDANSETRON HCL INJ/PF 4 MG/2 ML SDV IV PRN ×4 (06:12→23:36)
--- NOTE | 2019-10-29 09:03 | PDOC PROGRESS REPORT ---
Subjective Progress Note for:: 10/29/19 Subjective:: feels a bit better, but vomited yesterday ate some breafast this am Reason For Visit: HISTORY OF TOTAL GASTRECTOMY,ABDOMINAL PAIN Physical Exam Vital Signs: Temp Pulse Resp BP Pulse Ox 98.8 F 92 12 118/68 96 10/29/19 07:15 10/29/19 07:15 10/29/19 07:15 10/29/19 07:15 10/29/19 07:15 Intake & Output 10/28/19 10/29/19 10/30/19 06:59 06:59 06:59 Intake Total 1381 2531 Balance 1381 2531 Weight 62.3 kg 62.5 kg General appearance: PRESENT: no acute distress Head exam: PRESENT: normocephalic Eye exam: PRESENT: EOMI Ear exam: PRESENT: normal external ear exam Mouth exam: PRESENT: moist Neck exam: PRESENT: full ROM Respiratory exam: PRESENT: clear to auscultation jose Cardiovascular exam: PRESENT: RRR Pulses: PRESENT: normal radial pulses, normal femoral pulses Breast: PRESENT: Normal GI/Abdominal exam: PRESENT: soft Rectal exam: PRESENT: deferred Extremities exam: PRESENT: full ROM Musculoskeletal exam: PRESENT: ambulatory Neurological exam: PRESENT: alert, awake, oriented to person, oriented to time Psychiatric exam: PRESENT: appropriate affect Skin exam: PRESENT: dry Results Laboratory Results: 10/25/19 05:02 10/25/19 05:02 Impressions: Acute Abdomen Series 10/24/19 20:09 IMPRESSION: No acute plain film abnormality is identified. Abdomen/Pelvis CT 10/24/19 21:58 IMPRESSION: 1. Postsurgical change of gastrectomy. No bowel obstruction. 2. Abnormal enhancement pattern of the mid and lower right kidney in a pattern consistent with pyelonephritis. No obstruction. Assessment & Plan - Plan Summary Plan Summary: still with difficulty with po diet nausea, vomiting, pain iwth eating able to emily some po possibley 15-20% no bm for a week will add lactulose, reglan cont iwth ativan and prn phenergan home when emily more po option still open to pt for lap j-tube. she still wants to derfer.
[2019-10-29] MEDS ORDERED: LACTULOSE SYRUP 20 GM/30 ML UDCUP PO ONE (09:30)
[2019-10-29] MEDS: LORAZEPAM INJ 2 MG/1 ML VIAL IV PRN ×3 (10:01→21:56)
[2019-10-29] MEDS: THIAMINE HCL 100 MG in NORMAL SALINE 50 ML IV SCH (10:01)
[2019-10-29] MEDS: FAMOTIDINE INJ/PF 20 MG/2 ML SDV IV SCH ×2 (10:01→21:55)
[2019-10-29] MEDS: METOCLOPRAMIDE HCL INJ/PF 10 MG/2 ML SDV IV SCH ×2 (12:26→17:47)
[2019-10-30] MEDS: HYDROMORPHONE HCL INJ/PF 2 MG/ML AMPULE IV PRN ×2 (00:56→07:00)
[2019-10-30] MEDS: ZOLPIDEM TARTRATE 5 MG TABLET PO PRN (00:57)
[2019-10-30] MEDS: METOCLOPRAMIDE HCL INJ/PF 10 MG/2 ML SDV IV SCH ×2 (01:22→05:34)
[2019-10-30] MEDS: POTASSI CL 20 MEQ/D5-1/2NS 1L 1,000 ML IV PRN (03:24)
[2019-10-30] MEDS: LORAZEPAM INJ 2 MG/1 ML VIAL IV PRN ×2 (03:52→08:25)
[2019-10-30 09:12] VITALS: BP 150/94
--- NOTE | 2019-11-01 08:38 | PDOC DISCHARGE SUMMARY ---
General - Admit/Disc Date/PCP Admission Date/Primary Care Provider: 10/24/19 23:17 MADDY GARCIADARIUS Discharge Date: 10/30/19 - Discharge Diagnosis Final Diagnosis: Chronic nausea and vomiting status post total gastrectomy - Assessment Summary: This is a 24-year-old female who is admitted for chronic nausea and vomiting abdominal pain status post total gastrectomy 1 month ago at [facility] for CDH 11. The gastrectomy was done in a research protocol at [facility]. The patient has had 2 separate postoperative admissions for chronic nausea abdominal pain inability to tolerate p.o. She was admitted here a couple of weeks ago where she was watched for elevated lipase which resolved extensive work-up revealed no evidence of gallstones. Her nausea resolved in the hospital then and she was discharged home. Only to return to [facility] where she remained for 4 days and an extensive work-up was done including CAT scans and upper GIs her nausea resolved there and she was discharged home. She returned here last week with similar complaints only her lipase was normal at this point. I admitted her for IV hydration pain control and nausea control. At this point I have offered her a diagnostic laparoscopy and jejunostomy tube in. In consultation with her surgeon at [facility] who agreed with that plan. However patient has refused further surgery and only wanted hydration and nausea control which is been done over the course of the last 4 to 5 days in the hospital. She is now tolerating p.o. intermittently she has nausea and had some emesis however at this point is tolerating the majority of her diet and wants to be discharged home to try again. At this point she will be discharged home with anxiolytics Ativan 1 mg p.o. q. 6 as needed not the/anxiety. Percocet 103 25 4 intermittent abdominal pain. And Reglan 10 mg p.o. every 6 as a motility agent for her Meghan-en-Y esophagojejunostomy. She will be given a follow-up appointment with me 1 week after discharge for just routine follow-up. Final diagnosis chronic nausea and vomiting status post total gastrectomy. - Additional Information Resuscitation Status: Full Code Discharge Diet: As Tolerated Discharge Activity: Activity As Tolerated Referrals: IVANNA MARSH MD [ACTIVE STAFF] - 11/06/19 11:00 am Prescriptions: Lorazepam [Ativan 1 mg Tablet] 1 mg PO Q4 PRN #30 tab PRN Reason: Oxycodone HCl/Acetaminophen [Percocet 10-325 Mg Tablet] 1 each PO Q6HP PRN #20 tablet PRN Reason: Metoclopramide HCl [Reglan 10 mg Tablet] 1 tab PO Q6 #30 tablet Home Medications: Zolpidem Tartrate [Ambien] 10 mg PO QHS 10/25/19 Lorazepam [Ativan 1 mg Tablet] 1 mg PO Q4 PRN #30 tab 10/30/19 Metoclopramide HCl [Reglan 10 mg Tablet] 1 tab PO Q6 #30 tablet 10/30/19 Oxycodone HCl/Acetaminophen [Percocet 10-325 Mg Tablet] 1 each PO Q6HP PRN #20 tablet 10/30/19 History of Present Illiness History of Present Illness: GRETTA CHAHAL is a 24 year old female This is a 24-year-old female who is status post a total gastrectomy done in August at [facility] for hereditary gastric cancer. She presents the emergency department here approximately 3 weeks ago with vomiting dehydration and abdominal pain and was at that time found to have acute pancreatitis. She was admitted to the surgical service She improved with IV hydration and conservative management. She was discharged home but says that since that time she is continued to have intermittent nausea and vomiting relatively resistant to prescribed antiemetics including Zofran, Phenergan and Compazine. She indicates she is losing weight and becoming weaker. She continues to complain of intermittent discomfort left upper quadrant abdomen currently described as 5/10 intensity. She denies fever chills. She denies diarrhea. She says she is unable to eat due to nausea and vomiting and her oral fluid intake within the last 24 hours has been poor. After her admission here 2 weeks ago she then returned back to [place] and re- presented to [facility] and saw her surgeon. She was admitted to the hospital there for the pain she underwent extensive work-up at that time which included a CAT scan which did not show any intra-abdominal pathology she was monitored there f or about 4 days her symptoms improved and she was discharged home. She was told by her surgeon that her pain issues are relatively "" normal" and not out of the extreme ordinary for the gastrectomy patient. However for the last couple days she has been increasingly nauseated and has more more difficulty eating and complaining of epigastric pain with vomiting she texted her surgeon at [facility] who recommended that she come to the emergency room this evening. I spoke with her surgeon over the phone who is at a loss for an explanation of her abdominal pain. Physical Exam Vital Signs: Temp Pulse Resp BP Pulse Ox 98.3 F 127 H 16 126/71 H 97 10/29/19 22:57 10/29/19 22:57 10/29/19 22:57 10/29/19 22:57 10/29/19 22:57 Intake & Output 10/29/19 10/30/19 10/31/19 06:59 06:59 06:59 Intake Total 2531 2411 Balance 2531 2411 Weight 62.5 kg 62.6 kg Results Laboratory Results: WBC 6.8 10^3/uL (4.0-10.5) 10/25/19 05:02 RBC 4.14 10^6/uL (3.72-5.28) 10/25/19 05:02 Hgb 12.4 g/dL (12.0-15.5) D 10/25/19 05:02 Hct 35.1 % (36.0-47.0) L 10/25/19 05:02 MCV 85 fl (80-97) 10/25/19 05:02 MCH 29.9 pg (27.0-33.4) 10/25/19 05:02 MCHC 35.2 g/dL (32.0-36.0) 10/25/19 05:02 RDW 12.6 % (11.5-14.0) 10/25/19 05:02 Plt Count 303 10^3/uL (150-450) 10/25/19 05:02 Lymph % (Auto) 25.3 % (13-45) 10/25/19 05:02 [place] % (Auto) 8.5 % (3-13) 10/25/19 05:02 Eos % (Auto) 0.1 % (0-6) 10/25/19 05:02 Baso % (Auto) 0.5 % (0-2) 10/25/19 05:02 Absolute Neuts (auto) 4.5 10^3/uL (1.7-8.2) 10/25/19 05:02 Absolute Lymphs (auto) 1.7 10^3/uL (0.5-4.7) 10/25/19 05:02 Absolute Monos (auto) 0.6 10^3/uL (0.1-1.4) 10/25/19 05:02 Absolute Eos (auto) 0.0 10^3/uL (0.0-0.6) 10/25/19 05:02 Absolute Basos (auto) 0.0 10^3/uL (0.0-0.2) 10/25/19 05:02 Seg Neutrophils % 65.6 % (42-78) 10/25/19 05:02 PT 15.2 SEC (11.4-15.4) 10/24/19 20:17 INR 1.19 10/24/19 20:17 APTT 26.4 SEC (23.5-35.8) 10/24/19 20:17 VBG pH 7.35 (7.30-7.42) 10/24/19 22:00 VBG pCO2 32.4 mmHg (35-63) L 10/24/19 22:00 VBG HCO3 17.4 mmol/L (20-32) L 10/24/19 22:00 VBG Base Excess -7.1 mmol/L 10/24/19 22:00 Sodium 136.1 mmol/L (137-145) L 10/25/19 05:02 Potassium 3.7 mmol/L (3.6-5.0) 10/25/19 05:02 Chloride 106 mmol/L (98-107) 10/25/19 05:02 Carbon Dioxide 19 mmol/L (22-30) L 10/25/19 05:02 Anion Gap 11 (5-19) 10/25/19 05:02 BUN 3 mg/dL (7-20) L 10/25/19 05:02 Creatinine 0.55 mg/dL (0.52-1.25) 10/25/19 05:02 Est GFR ( Amer) > 60 (>60) 10/25/19 05:02 Est GFR (MDRD) Non-Af > 60 (>60) 10/25/19 05:02 Glucose 159 mg/dL (75-110) H 10/25/19 05:02 Lactic Acid 1.0 mmol/L (0.7-2.1) 10/24/19 22:00 Calcium 9.0 mg/dL (8.4-10.2) 10/25/19 05:02 Total Bilirubin 0.5 mg/dL (0.2-1.3) 10/24/19 20:17 Direct Bilirubin 0.1 mg/dL (0.0-0.4) 10/24/19 20:17 Neonat Total Bilirubin Not Reportable 10/24/19 20:17 Neonat Direct Bilirubin Not Reportable 10/24/19 20:17 Neonat Indirect Bili Not Reportable 10/24/19 20:17 AST 17 U/L (14-36) 10/24/19 20:17 ALT 19 U/L (<35) 10/24/19 20:17 Alkaline Phosphatase 72 U/L (38-126) 10/24/19 20:17 Total Protein 8.2 g/dL (6.3-8.2) 10/24/19 20:17 Albumin 5.3 g/dL (3.5-5.0) H 10/24/19 20:17 Lipase 667.0 U/L (23-300) H 10/25/19 05:02 Vitamin B1 158.4 nmol/L (66.5-200.0) 10/24/19 20:17 Vitamin B12 681.0 pg/mL (239-931) 10/24/19 20:17 Urine Color YELLOW 10/25/19 12:00 Urine Appearance CLEAR 10/25/19 12:00 Urine pH 6.0 (5.0-9.0) 10/25/19 12:00 Ur Specific [place] 1.008 10/25/19 12:00 Urine Protein NEGATIVE mg/dL (NEGATIVE) 10/25/19 12:00 Urine Glucose (UA) NEGATIVE mg/dL (NEGATIVE) 10/25/19 12:00 Urine Ketones TRACE mg/dL (NEGATIVE) H 10/25/19 12:00 Urine Blood NEGATIVE (NEGATIVE) 10/25/19 12:00 Urine Nitrite NEGATIVE (NEGATIVE) 10/25/19 12:00 Urine Nitrite (Reflex) NEGATIVE (NEGATIVE) 10/24/19 21:00 Urine Bilirubin NEGATIVE (NEGATIVE) 10/25/19 12:00 Urine Urobilinogen NEGATIVE mg/dL (<2.0) 10/25/19 12:00 Ur Leukocyte Esterase NEGATIVE (NEGATIVE) 10/25/19 12:00 Leukocyte Esterase Rfl NEGATIVE (NEGATIVE) 10/24/19 21:00 Urine WBC (Auto) 1 /HPF 10/25/19 12:00 Urine RBC (Auto) 1 /HPF 10/25/19 12:00 U Hyaline Cast (Auto) 1 /LPF 10/24/19 21:00 Urine WBC (Reflex) 6 /HPF 10/24/19 21:00 Squamous Epi Cells Auto 1 /HPF 10/25/19 12:00 Urine Mucus (Auto) RARE /LPF 10/25/19 12:00 Urine Ascorbic Acid NEGATIVE (NEGATIVE) 10/25/19 12:00 Salicylates < 1.0 mg/dL (2.0-20.0) L 10/24/19 20:17 Impressions: Acute Abdomen Series 10/24/19 20:09 IMPRESSION: No acute plain film abnormality is identified. Abdomen/Pelvis CT 10/24/19 21:58 IMPRESSION: 1. Postsurgical change of gastrectomy. No bowel obstruction. 2. Abnormal enhancement pattern of the mid and lower right kidney in a pattern consistent with pyelonephritis. No obstruction.
== END 2019-10-30 10:00 | disposition home or self-care (01) | DRG 392 ==
LOC: ER 18:43 → EH 23:17 → 4S 10-25 00:29
PROVIDERS: ADMIT Surgery; ATTEND Surgery
DX: R11.2 Nausea with vomiting, unspecified (principal); C16.9 Malignant neoplasm of stomach, unspecified; E86.0 Dehydration; Z90.3 Acquired absence of stomach [part of]
CPT/HCPCS: 36415; 74022; 74177; 80048; 80053; 80307; 81001; 82607; 82803; 83605; 83690; 84425; 85025; 85610; 85730; 87086; 96361; 96372; 96374; 96375; 99285; J0780; J1170; J2060; J2405; J2550; J2765; J3010; J3411; J3480; J3490; J7120; S0028

== ENCOUNTER 2019-11-08 09:05 | Inpatient (IN) | payer BC, OTHER ==
[~2019-11-08 09:05] MED LIST: ROCURONIUM BROMIDE INJ 50 MG/5 ML VIAL IV ONE; SUCCINYLCHOLINE CHLORIDE INJ 200 MG/10 ML VIAL ONE
[2019-11-08] MEDS ORDERED: PROMETHAZINE HCL INJ 25 MG/1 ML VIAL ONE (11:12)
[2019-11-08] MEDS ORDERED: HYDROMORPHONE HCL INJ/PF 2 MG/ML AMPULE ONE (11:12)
[2019-11-08] MEDS: POTASSI CL 20 MEQ/D5-1/2NS 1L 1000 ML IV PRN ×2 (11:52→18:27)
[2019-11-08] MEDS: METOCLOPRAMIDE HCL INJ/PF 10 MG/2 ML SDV IV SCH ×3 (11:56→23:10)
--- NOTE | 2019-11-08 13:08 | EKG REPORT ---
SEVERITY:- ABNORMAL ECG - SINUS TACHYCARDIA PROBABLE LEFT ATRIAL ABNORMALITY ABNORMAL T, CONSIDER ISCHEMIA, INFERIOR LEADS : Confirmed by: Rashad Álvarez MD 08-Nov-2019 13:08:09
[2019-11-08 13:36] LABS: HEMATOCRIT 38.8 % (36.0-47.0); HEMOGLOBIN 13.4 g/dL (12.0-15.5); MEAN CORPUSCULAR HEMOGLOBIN 29.8 pg (27.0-33.4); MEAN CORPUSCULAR HGB CONC 34.6 g/dL (32.0-36.0); MEAN CORPUSCULAR VOLUME 86 fl (80-97); PLATELET COUNT 268 10^3/uL (150-450); RED BLOOD COUNT 4.51 10^6/uL (3.72-5.28); WHITE BLOOD COUNT 5.6 10^3/uL (4.0-10.5)
[2019-11-08 14:07] LABS: ANION GAP 11 (5-19); BLOOD UREA NITROGEN 4 mg/dL (7-20); CALCIUM 9.7 mg/dL (8.4-10.2); CARBON DIOXIDE 22 mmol/L (22-30); CHLORIDE 103 mmol/L (98-107); GLUCOSE 153 mg/dL (75-110); POTASSIUM 4.4 mmol/L (3.6-5.0)
[2019-11-08] MEDS: HYDROMORPHONE HCL INJ/PF 2 MG/ML AMPULE IV PRN ×2 (15:25→19:34)
[2019-11-08] MEDS: THIAMINE HCL INJ 200 MG/2 ML VIAL IM SCH (15:26)
[2019-11-08] MEDS ORDERED: THIAMINE HCL INJ 200 MG/2 ML VIAL IM ONE (15:30)
[2019-11-08] MEDS: LORAZEPAM INJ 2 MG/1 ML VIAL IV PRN (16:43)
[2019-11-08] MEDS: PROMETHAZINE HCL INJ 25 MG/1 ML VIAL IV PRN (17:47)
[2019-11-08] MEDS ORDERED: ACETAMINOPHEN 650 MG SUPP.RECT PR PRN (19:59)
[2019-11-08 21:28] LABS: CREATINE KINASE MB < 0.22 ng/mL (<4.55); TROPONIN I < 0.012 ng/mL
[2019-11-09] MEDS: PROMETHAZINE HCL INJ 25 MG/1 ML VIAL IV PRN ×4 (00:04→19:25)
[2019-11-09] MEDS: HYDROMORPHONE HCL INJ/PF 2 MG/ML AMPULE IV PRN ×6 (00:04→20:33)
--- NOTE | 2019-11-09 00:07 | PDOC CONSULTATION ---
Consultation Consult Date: 11/08/19 Attending physician:: IVANNA MARSH Provider Consulted: SOLEDAD VERMA Consult reason:: Tachycardia History of Present Illness Admission Date/PCP: 11/08/19 09:05 DARIUS COFFEY Patient complains of: Asymptomatic tachycardia History of Present Illness: GRETTA CHAHAL is a 24 year old female who was admitted by Dr. Marsh, following a prophylactic total gastrectomy 2 months ago, with nausea and vomiting accompanied by moderate epigastric abdominal pain and associated with anorexia. She denies other associated or accompanying signs and symptoms. She admits prior similar episodes. She has not identified any aggravating or amelio rating factors for her nausea and vomiting. She was noted to have a sinus tachycardia of ~120 bpm on her initial EKG and the hospitalist service was consulted for evaluation. Her initial lab work was unremarkable with the exception of a minimally elevated lipase, a mild hyperglycemia and an accomp anying minimal hyponatremia. Past Medical History Cardiac Medical History: Denies: Atrial Fibrillation, Congestive Heart Failure, Coronary Artery Disease, DVT, Myocardial Infarction, Hyperlipidema, Hypertension, Peripheral Vascular Disease, Pulmonary Embolism, Heart Murmur Pulmonary Medical History: Denies: Asthma, Bronchitis, Chronic Obstructive Pulmonary Disease (COPD), Intubation, Pneumonia, Respiratory Failure, Sleep Apnea, Tuberculosis EENT Medical History: Denies: Cataracts, Ears - Hearing aids Neurological Medical History: Denies: Migraine, Seizures Endocrine Medical History: Denies: Diabetes Mellitus Type 1, Hyperthyroidism, Hypothyroidism Renal/ Medical History: Denies: Chronic Kidney Disease, Nephrolithiasis Malignancy Medical History: Reports: None GI Medical History: Reports: Other - 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 Denies: Cirrhosis, Crohn's Disease, Hepatitis, Peptic Ulcer Disease, Ulcerative Colitis Musculoskeltal Medical History: Denies: Arthritis, Fibromyalgia, Gout Skin Medical History: Denies: Eczema, Psoriasis Psychiatric Medical History: Reports: Depression Denies: Alcohol Dependency, Substance Abuse, Tobacco Dependency Traumatic Medical History: Reports: None Hematology: Denies: Anemia, Bleeding Tendencies Infectious Medical History: Reports: None Past Surgical History Past Surgical History: Reports: Appendectomy, Other - Connell teeth, total gastrectomy Social History Information Source: Patient, [facility] Records Lives with: Spouse/Significant other Smoking Status: Never Smoker Electronic Cigarette use?: No Frequency of Alcohol Use: Occasional Hx Recreational Drug Use: No Drugs: None Hx Prescription Drug Abuse: No - Advance Directive Resuscitation Status: Full Code Surrogate healthcare decision maker:: Reese Chahal Family History Family History: Malignancy - Gastric cancer in her mother, maternal uncle, maternal cousin. Parental Family History Reviewed: Yes Children Family History Reviewed: No Sibling(s) Family History Reviewed.: Yes Medication/Allergy Home Medications: Lorazepam [Ativan 1 mg Tablet] 1 mg PO Q4HP PRN MDD FILLED 4/6 FOR 5 DAY SUPPLY 11/08/19 Metoclopramide HCl [Reglan 10 mg Tablet] 10 mg PO Q6HP PRN MDD FILLED 4/6 FOR 6 DAY SUPPLY 11/08/19 Oxycodone HCl/Acetaminophen [Percocet 10-325 Mg Tablet] 1 each PO Q6HP PRN MDD FILLED 4/6 FOR 5 DAY SUPPLY 11/08/19 Allergies/Adverse Reactions: No Known Allergies Allergy (Verified 10/25/19 07:55) Review of Systems Constitutional: PRESENT: as per HPI, anorexia. ABSENT: chills, fever(s) Eyes: ABSENT: visual disturbances, other - Eye pain Ears: ABSENT: hearing changes, other - Ear pain Nose, Mouth, and Throat: ABSENT: headache(s), sore throat Cardiovascular: ABSENT: chest pain, palpitations Respiratory: ABSENT: cough, dyspnea Gastrointestinal: PRESENT: abdominal pain, nausea, vomiting. ABSENT: constipation, diarrhea Genitourinary: ABSENT: dysuria, hematuria Musculoskeletal: ABSENT: back pain, joint swelling Integumentary: ABSENT: pruritus, rash Neurological: ABSENT: confusion, convulsions, focal weakness, memory loss, syncope Psychiatric: ABSENT: anxiety, depression Endocrine: ABSENT: cold intolerance, heat intolerance, polydipsia, polyphagia, polyuria Hematologic/Lymphatic: ABSENT: easy bleeding, easy bruising Allergic/Immunologic: ABSENT: seasonal rhinorrhea Physical Exam Vital Signs: Temp Pulse Resp BP Pulse Ox 98.3 F 84 16 136/94 H 98 11/08/19 10:19 11/08/19 14:00 11/08/19 10:19 11/08/19 10:19 11/08/19 10:19 Intake & Output 11/06/19 11/07/19 11/08/19 23:59 23:59 23:59 Intake Total 987 Balance 987 Weight 61.5 kg General appearance: PRESENT: no acute distress, cooperative, well-developed Head exam: PRESENT: atraumatic, normocephalic Eye exam: PRESENT: conjunctiva pink. ABSENT: conjunctival injection, scleral icterus Ear exam: PRESENT: normal external ear exam. ABSENT: bleeding, drainage Mouth exam: PRESENT: dry mucosa, neck supple Neck exam: ABSENT: thyromegaly, tracheal deviation Respiratory exam: PRESENT: clear to auscultation jose, symmetrical, unlabored Cardiovascular exam: PRESENT: RRR. ABSENT: clicks, gallop, rubs, tachycardia Pulses: PRESENT: normal radial pulses, normal dorsalis pedis pul Vascular exam: PRESENT: normal capillary refill. ABSENT: pallor GI/Abdominal exam: PRESENT: hypoactive bowel sounds, soft, tenderness - Moderate nonlocalizing tenderness in the left upper quadrant and epigastric region Rectal exam: PRESENT: deferred Extremities exam: ABSENT: joint swelling, pedal edema Musculoskeletal exam: ABSENT: deformity, dislocation Neurological exam: PRESENT: alert, oriented to person, oriented to place, oriented to time, oriented to situation, CN II-XII grossly intact. ABSENT: motor sensory deficit Psychiatric exam: PRESENT: appropriate affect, normal mood Skin exam: PRESENT: dry, intact, warm. ABSENT: jaundice, rash, urticaria Results Laboratory Results: 11/08/19 13:17 11/08/19 13:17 11/08/19 11/08/19 13:17 13:17 WBC 5.6 RBC 4.51 Hgb 13.4 Hct 38.8 MCV 86 MCH 29.8 MCHC 34.6 RDW 13.0 Plt Count 268 Sodium 136.2 L Potassium 4.4 Chloride 103 Carbon Dioxide 22 Anion Gap 11 BUN 4 L Creatinine 0.54 Est GFR ( Amer) > 60 Glucose 153 H Calcium 9.7 Lipase 353.6 H Assessment and Plan - Diagnosis (1) Sinus tachycardia by electrocardiogram Is this a current diagnosis for this admission?: Yes (2) Nausea and vomiting Qualifiers: Vomiting Intractability: intractable Is this a current diagnosis for this admission?: Yes (3) Hyperglycemia Is this a current diagnosis for this admission?: Yes (4) Hyponatremia Is this a current diagnosis for this admission?: Yes (5) Abdominal pain Qualifiers: Abdominal location: upper abdomen, unspecified Qualified Code(s): R10.10 - Upper abdominal pain, unspecified Is this a current diagnosis for this admission?: Yes (6) Serum lipase elevation Is this a current diagnosis for this admission?: Yes (7) 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 Is this a current diagnosis for this admission?: Yes - Plan Summary Summary: The patient's sinus tachycardia observed on the EKG at admission, has subsequently resolved and at the time of this consultation she appears to be in a normal sinus rhythm. EKG does suggest some nonspecific T wave changes and therefore serial cardiac enzymes, a magnesium level and a thyroid profile will be obtained. Patient will remain on telemetry and we will treat her tachycardia should it recur with IV metoprolol 5 mg every 4 hours as needed for sustained heart rate greater than 110. Serial lipase and amylase determinations will be obtained. Patient will continue on hydromorphone 2 mg IV every 4 hours as n eeded for pain and Ativan 1 mg IV every 4 hours as needed for anxiety or restlessness. CBCs, metabolic profiles and magnesium levels will be obtained as appropriate. Patient will be followed by the hospitalist service as long as necessary. - Time Time Spent with patient: 15-24 minutes Medications reviewed and adjusted accordingly: Yes Anticipated discharge: Home, Home with Homehealth - Inpatient Certification Based on my medical assessment, after consideration of the patient's comorbidities, presenting symptoms, or acuity I expect that the services needed warrant INPATIENT care.: Yes I certify that my determination is in accordance with my understanding of Medicare's requirements for reasonable and necessary INPATIENT services [42 CFR 412.3e].: Yes Medical Necessity: Failure to Improve With Outpatient Therapy, Need Close Monitoring Due to Risk of Patient Decompensation, Need For IV Fluids, Need For Continuous Telemetry Monitoring, Need for Pain Control, Risk of Complication if Not Cared For in Hospital
[2019-11-09] MEDS: POTASSI CL 20 MEQ/D5-1/2NS 1L 1000 ML IV PRN ×4 (01:43→21:39)
[2019-11-09] MEDS: LORAZEPAM INJ 2 MG/1 ML VIAL IV PRN ×4 (03:04→22:42)
[2019-11-09 03:18] LABS: VENOUS BLOOD BASE EXCESS -2.9 mmol/L; VENOUS BLOOD HCO3 23.1 mmol/L (20-32); VENOUS BLOOD PCO2 44.6 mmHg (35-63); VENOUS BLOOD PH 7.33 (7.30-7.42)
[2019-11-09 03:19] LABS: HEMATOCRIT 38.5 % (36.0-47.0); HEMOGLOBIN 13.1 g/dL (12.0-15.5); MEAN CORPUSCULAR HEMOGLOBIN 29.8 pg (27.0-33.4); MEAN CORPUSCULAR HGB CONC 34.1 g/dL (32.0-36.0); MEAN CORPUSCULAR VOLUME 87 fl (80-97); PLATELET COUNT 241 10^3/uL (150-450); RED BLOOD COUNT 4.41 10^6/uL (3.72-5.28); RED CELL DISTRIBUTION WIDTH 13.2 % (11.5-14.0); WHITE BLOOD COUNT 5.9 10^3/uL (4.0-10.5)
[2019-11-09 03:51] LABS: AMYLASE 68 U/L (30-110); ANION GAP 6 (5-19); CALCIUM 9.5 mg/dL (8.4-10.2); CARBON DIOXIDE 25 mmol/L (22-30); CHLORIDE 107 mmol/L (98-107); CREATINE KINASE 23 U/L (30-135); GLUCOSE 125 mg/dL (75-110); POTASSIUM 3.9 mmol/L (3.6-5.0)
[2019-11-09 03:57] LABS: BLOOD UREA NITROGEN < 2 mg/dL (7-20)
[2019-11-09 04:03] LABS: CREATINE KINASE MB < 0.22 ng/mL (<4.55); TROPONIN I < 0.012 ng/mL
[2019-11-09] MEDS: METOCLOPRAMIDE HCL INJ/PF 10 MG/2 ML SDV IV SCH ×3 (05:14→17:31)
--- NOTE | 2019-11-09 08:36 | PDOC PROGRESS REPORT ---
Subjective Progress Note for:: 11/09/19 Subjective:: feels a little bit better still some abd pain taking ice chips wants milk Reason For Visit: ACQUIRED ABSENCE OF STOMACH [PART OF] Physical Exam Vital Signs: Temp Pulse Resp BP Pulse Ox 98.0 F 90 18 141/86 H 98 11/09/19 00:19 11/09/19 07:00 11/09/19 00:19 11/09/19 00:19 11/09/19 00:19 Intake & Output 11/08/19 11/09/19 11/10/19 06:59 06:59 06:59 Intake Total 2086 Balance 2086 Weight 64.4 kg General appearance: PRESENT: mild distress Head exam: PRESENT: normocephalic Eye exam: PRESENT: EOMI Ear exam: PRESENT: normal external ear exam Mouth exam: PRESENT: moist Neck exam: PRESENT: full ROM Cardiovascular exam: PRESENT: RRR Pulses: PRESENT: normal radial pulses, normal femoral pulses Vascular exam: PRESENT: normal capillary refill Breast: PRESENT: Normal GI/Abdominal exam: PRESENT: soft Rectal exam: PRESENT: deferred Extremities exam: PRESENT: full ROM Neurological exam: PRESENT: alert, awake, oriented to person, oriented to place Psychiatric exam: PRESENT: depressed Skin exam: PRESENT: dry Results Laboratory Results: 11/09/19 02:57 11/09/19 02:57 11/08/19 11/08/19 11/08/19 13:17 13:17 20:44 WBC 5.6 RBC 4.51 Hgb 13.4 Hct 38.8 MCV 86 MCH 29.8 MCHC 34.6 RDW 13.0 Plt Count 268 VBG pH VBG pCO2 VBG HCO3 VBG Base Excess Sodium 136.2 L Potassium 4.4 Chloride 103 Carbon Dioxide 22 Anion Gap 11 BUN 4 L Creatinine 0.54 Est GFR ( Amer) > 60 Glucose 153 H Calcium 9.7 Magnesium 2.0 Amylase 53 Lipase 353.6 H 344.1 H TSH Free T3 pg/mL 11/08/19 11/09/19 11/09/19 20:44 02:57 02:57 WBC 5.9 RBC 4.41 Hgb 13.1 Hct 38.5 MCV 87 MCH 29.8 MCHC 34.1 RDW 13.2 Plt Count 241 VBG pH VBG pCO2 VBG HCO3 VBG Base Excess Sodium 138.2 Potassium 3.9 Chloride 107 Carbon Dioxide 25 Anion Gap 6 BUN < 2 L Creatinine 0.59 Est GFR ( Amer) > 60 Glucose 125 H Calcium 9.5 Magnesium 1.9 Amylase 68 Lipase 380.0 H TSH Free T3 pg/mL 3.48 11/09/19 11/09/19 02:57 02:57 WBC RBC Hgb Hct MCV MCH MCHC RDW Plt Count VBG pH 7.33 VBG pCO2 44.6 VBG HCO3 23.1 VBG Base Excess -2.9 Sodium Potassium Chloride Carbon Dioxide Anion Gap BUN Creatinine Est GFR ( Amer) Glucose Calcium Magnesium Amylase Lipase TSH 2.97 Free T3 pg/mL 11/08/19 11/08/19 11/09/19 20:44 20:44 02:57 Creatine Kinase 22 L CK-MB (CK-2) < 0.22 < 0.22 Troponin I < 0.012 < 0.012 11/09/19 02:57 Creatine Kinase 23 L CK-MB (CK-2) Troponin I Assessment & Plan - Plan Summary Plan Summary: post total gastrectomy chronic nausea, vomiting spoke to surgeon Dr Lopez at [facility] agrees to plan of upper endoscopy and lap j-tube placement will plan on surgery tomorrow.
[2019-11-09] MEDS: THIAMINE HCL INJ 200 MG/2 ML VIAL IM SCH (09:53)
[2019-11-09 09:59] LABS: CREATINE KINASE MB < 0.22 ng/mL (<4.55); TROPONIN I < 0.012 ng/mL
--- NOTE | 2019-11-09 12:22 | EKG REPORT ---
SEVERITY:- ABNORMAL ECG - SINUS RHYTHM NONSPECIFIC T ABNORMALITIES, INFERIOR LEADS : Confirmed by: Rashad Álvarez MD 09-Nov-2019 12:22:18
--- NOTE | 2019-11-09 12:30 | PDOC PROGRESS REPORT ---
Subjective Progress Note for:: 11/09/19 Subjective:: Patient is resting and working on clear liquids. She has some chest discomfort probably from vomiting and likely esophagitis. She is normally on Carafate at home. She is likely having surgery tomorrow. Reason For Visit: ACQUIRED ABSENCE OF STOMACH [PART OF] Physical Exam Vital Signs: Temp Pulse Resp BP Pulse Ox 98.4 F 88 16 113/61 96 11/09/19 10:59 11/09/19 10:59 11/09/19 10:59 11/09/19 10:59 11/09/19 10:59 Intake & Output 11/08/19 11/09/19 11/10/19 06:59 06:59 06:59 Intake Total 2086 985 Balance 2086 985 Weight 64.4 kg 64.4 kg General appearance: PRESENT: cooperative, mild distress, well-developed Head exam: PRESENT: atraumatic, normocephalic Eye exam: PRESENT: conjunctiva pink. ABSENT: scleral icterus Ear exam: PRESENT: normal external ear exam. ABSENT: bleeding, drainage Mouth exam: PRESENT: moist, tongue midline Neck exam: ABSENT: carotid bruit, full ROM, lymphadenopathy Respiratory exam: PRESENT: clear to auscultation jose, symmetrical, unlabored. ABSENT: rales, rhonchi, tachypnea, wheezes Cardiovascular exam: PRESENT: RRR, +S1, +S2. ABSENT: bradycardia, diastolic murmur, systolic murmur, tachycardia GI/Abdominal exam: PRESENT: normal bowel sounds, soft, tenderness - Over the incision from the total gastrectomy. ABSENT: distended, guarding Rectal exam: PRESENT: deferred Gentrourinary exam: ABSENT: indwelling catheter Extremities exam: ABSENT: pedal edema Musculoskeletal exam: PRESENT: ambulatory, normal inspection Neurological exam: PRESENT: alert, awake, oriented to person, oriented to place, oriented to time, oriented to situation, CN II-XII grossly intact. ABSENT: altered Psychiatric exam: PRESENT: appropriate affect. ABSENT: agitated, anxious Focused psych exam: ABSENT: delusional, paranoid, restlessness Skin exam: PRESENT: dry, normal color, warm. ABSENT: rash Results Laboratory Results: 11/09/19 02:57 11/09/19 02:57 11/08/19 11/08/19 11/08/19 13:17 13:17 20:44 WBC 5.6 RBC 4.51 Hgb 13.4 Hct 38.8 MCV 86 MCH 29.8 MCHC 34.6 RDW 13.0 Plt Count 268 VBG pH VBG pCO2 VBG HCO3 VBG Base Excess Sodium 136.2 L Potassium 4.4 Chloride 103 Carbon Dioxide 22 Anion Gap 11 BUN 4 L Creatinine 0.54 Est GFR ( Amer) > 60 Glucose 153 H Calcium 9.7 Magnesium 2.0 Amylase 53 Lipase 353.6 H 344.1 H TSH Free T3 pg/mL 11/08/19 11/09/19 11/09/19 20:44 02:57 02:57 WBC 5.9 RBC 4.41 Hgb 13.1 Hct 38.5 MCV 87 MCH 29.8 MCHC 34.1 RDW 13.2 Plt Count 241 VBG pH VBG pCO2 VBG HCO3 VBG Base Excess Sodium 138.2 Potassium 3.9 Chloride 107 Carbon Dioxide 25 Anion Gap 6 BUN < 2 L Creatinine 0.59 Est GFR ( Amer) > 60 Glucose 125 H Calcium 9.5 Magnesium 1.9 Amylase 68 Lipase 380.0 H TSH Free T3 pg/mL 3.48 11/09/19 11/09/19 02:57 02:57 WBC RBC Hgb Hct MCV MCH MCHC RDW Plt Count VBG pH 7.33 VBG pCO2 44.6 VBG HCO3 23.1 VBG Base Excess -2.9 Sodium Potassium Chloride Carbon Dioxide Anion Gap BUN Creatinine Est GFR ( Amer) Glucose Calcium Magnesium Amylase Lipase TSH 2.97 Free T3 pg/mL 11/08/19 11/08/19 11/09/19 20:44 20:44 02:57 Creatine Kinase 22 L CK-MB (CK-2) < 0.22 < 0.22 Troponin I < 0.012 < 0.012 11/09/19 11/09/19 11/09/19 02:57 08:34 08:34 Creatine Kinase 23 L < 20 L CK-MB (CK-2) < 0.22 Troponin I < 0.012 Assessment and Plan - Diagnosis (1) Sinus tachycardia by electrocardiogram Is this a current diagnosis for this admission?: Yes Plan: 11/09/2019 Tachycardia was present on presentation to the emergency department. This could have been due to pain as well as nausea and vomiting. She has been monitored on telemetry and has been in sinus rhythm without tachycardia. We will continue to monitor. PRN medication available. (2) Nausea and vomiting Qualifiers: Vomiting Intractability: intractable Is this a current diagnosis for this admission?: Yes Plan: 11/09/2019 The patient is status post gastrectomy for prophylaxis against malignancy. She has been experiencing significant nausea and vomiting. I believe this is causing some of her epigastric discomfort from esophagitis and musculoskeletal strain. She is on metoclopramide and does take Carafate at home. I will resume Carafate and add famotidine. (3) Abdominal pain Qualifiers: Abdominal location: upper abdomen, unspecified Qualified Code(s): R10.10 - Upper abdominal pain, unspecified Is this a current diagnosis for this admission?: Yes Plan: 11/09/2019 The focus of discomfort is at the incision site from her gastrectomy. Analgesia is available. The nausea and vomiting has likely irritated the tissue as well. (4) Hyperglycemia Is this a current diagnosis for this admission?: Yes Plan: 11/09/2019 Glucose is still slightly elevated. We will continue to monitor with serum chemistries. (5) Hyponatremia Is this a current diagnosis for this admission?: Yes Plan: 11/09/2019 Mild hyponatremia present on admission. This is resolved. Will monitor electrolytes. (6) Serum lipase elevation Is this a current diagnosis for this admission?: Yes Plan: 11/09/2019 Unsure of the exact etiology for the mild elevation. Will monitor. This ce rtainly could be contributing to the nausea and vomiting. 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 She is here for a ente rostomy tube for nutrition. I believe the surgery is planned for tomorrow. - Plan Summary Summary: The patient's sinus tachycardia observed on the EKG at admission, has subsequently resolved and at the time of this consultation she appears to be in a normal sinus rhythm. EKG does suggest some nonspecific T wave changes and therefore serial cardiac enzymes, a magnesium level and a thyroid profile will be obtained. Patient will remain on telemetry and we will treat her tachycardia should it recur with IV metoprolol 5 mg every 4 hours as needed for sustained heart rate greater than 110. Serial lipase and amylase determinations will be obtained. Patient will continue on hydromorphone 2 mg IV every 4 hours as needed for pain and Ativan 1 mg IV every 4 hours as needed for anxiety or restlessness. CBCs, metabolic profiles and magnesium levels will be obtained as appropriate. Patient will be followed by the hospitalist service as long as necessary. - Time Time Spent with patient: 15-24 minutes Medications reviewed and adjusted accordingly: Yes
[2019-11-09] MEDS: SUCRALFATE 1 GM TABLET PO SCH ×2 (15:27→21:34)
[2019-11-09] MEDS: FAMOTIDINE INJ/PF 20 MG/2 ML SDV IV SCH (21:34)
[2019-11-10] MEDS: METOCLOPRAMIDE HCL INJ/PF 10 MG/2 ML SDV IV SCH ×4 (00:31→17:16)
[2019-11-10] MEDS: HYDROMORPHONE HCL INJ/PF 2 MG/ML AMPULE IV PRN ×5 (00:34→22:04)
[2019-11-10] MEDS: PROMETHAZINE HCL INJ 25 MG/1 ML VIAL IV PRN ×3 (02:00→20:45)
[2019-11-10] MEDS: LORAZEPAM INJ 2 MG/1 ML VIAL IV PRN ×3 (05:05→20:45)
[2019-11-10] MEDS: POTASSI CL 20 MEQ/D5-1/2NS 1L 1000 ML IV PRN ×3 (05:13→20:36)
[2019-11-10 06:03] LABS: HEMATOCRIT 36.9 % (36.0-47.0); HEMOGLOBIN 12.7 g/dL (12.0-15.5); MEAN CORPUSCULAR HEMOGLOBIN 29.8 pg (27.0-33.4); MEAN CORPUSCULAR HGB CONC 34.3 g/dL (32.0-36.0); MEAN CORPUSCULAR VOLUME 87 fl (80-97); PLATELET COUNT 179 10^3/uL (150-450); RED BLOOD COUNT 4.26 10^6/uL (3.72-5.28); RED CELL DISTRIBUTION WIDTH 13.2 % (11.5-14.0); WHITE BLOOD COUNT 3.4 10^3/uL (4.0-10.5)
[2019-11-10 06:23] LABS: ANION GAP 7 (5-19); CALCIUM 9.3 mg/dL (8.4-10.2); CARBON DIOXIDE 23 mmol/L (22-30); CHLORIDE 107 mmol/L (98-107); GLUCOSE 100 mg/dL (75-110); POTASSIUM 4.1 mmol/L (3.6-5.0)
[2019-11-10 06:25] LABS: BLOOD UREA NITROGEN < 2 mg/dL (7-20)
[2019-11-10] MEDS: SUCRALFATE 1 GM TABLET PO SCH ×4 (08:06→22:04)
[2019-11-10] MEDS: THIAMINE HCL INJ 200 MG/2 ML VIAL IM SCH (10:00)
[2019-11-10] MEDS: FAMOTIDINE INJ/PF 20 MG/2 ML SDV IV SCH (10:00)
[2019-11-10] MEDS ORDERED: MIDAZOLAM 2 MG/2 ML INJ ONE (10:22)
[2019-11-10] MEDS ORDERED: FENTANYL CITRATE INJ/PF 250 MCG/5 ML AMPULE ONE (10:22)
[2019-11-10] MEDS ORDERED: ONDANSETRON HCL INJ/PF 4 MG/2 ML SDV ONE (10:22)
[2019-11-10] MEDS ORDERED: DEXAMETHASONE SOD PHOSPHATE INJ 4 MG/1 ML VIAL ONE (10:22)
[2019-11-10] MEDS ORDERED: PROPOFOL INJ 200 MG/20 ML VIAL IV ONE (10:23)
[2019-11-10] MEDS ORDERED: BUPIVACAINE HCL 0.5%-EPI 1:200000 INJ/PF 30 ML VIAL ONE (13:21)
[2019-11-10] MEDS ORDERED: CEFAZOLIN INJ 1 GM VIAL ONE (13:53)
[2019-11-10] MEDS ORDERED: MORPHINE SULFATE 10 MG/ML INJ IV PRN (14:16)
[2019-11-10] MEDS ORDERED: FENTANYL CITRATE INJ/PF 100 MCG/2 ML AMPUL IV PRN ×3 (14:16)
[2019-11-10] MEDS ORDERED: OXYCODONE-ACETAMINOPHEN 5-325 MG TABLET PO PRN (14:16)
[2019-11-10] MEDS ORDERED: ONDANSETRON HCL INJ/PF 4 MG/2 ML SDV IV PRN (14:16)
[2019-11-10] MEDS ORDERED: PROMETHAZINE HCL INJ 25 MG/1 ML VIAL IV PRN (14:16)
[2019-11-10] MEDS ORDERED: DIPHENHYDRAMINE HCL 50 MG/ML VIAL IV PRN (14:16)
[2019-11-10] MEDS ORDERED: MEPERIDINE HCL/PF INJ 25 MG/1 ML DISP.SYRIN IV PRN (14:16)
[2019-11-10] MEDS ORDERED: BUPIVACAINE INJ/PF LIPOSOME/PF 266 MG/20 ML SDV ONE (14:36)
--- NOTE | 2019-11-10 14:45 | PDOC PROGRESS REPORT ---
Subjective Progress Note for:: 11/10/19 Reason For Visit: ACQUIRED ABSENCE OF STOMACH [PART OF] 11/10/2019 Consulted for tachycardia Physical Exam Vital Signs: Temp Pulse Resp BP Pulse Ox 97.8 F 96 17 134/84 H 100 11/10/19 12:32 11/10/19 12:32 11/10/19 12:32 11/10/19 12:32 11/10/19 12:32 Intake & Output 11/09/19 11/10/19 11/11/19 06:59 06:59 06:59 Intake Total 7 5006 897 Output Total 0 Balance 2086 5006 897 Weight 64.4 kg 66.8 kg General appearance: PRESENT: no acute distress, other - Patient tearful about her situation Respiratory exam: PRESENT: clear to auscultation jose. ABSENT: rales, rhonchi, wheezes Cardiovascular exam: PRESENT: RRR. ABSENT: diastolic murmur, rubs, systolic murmur Neurological exam: PRESENT: alert, awake, oriented to person, oriented to place, oriented to time, oriented to situation, CN II-XII grossly intact. ABSENT: motor sensory deficit Psychiatric exam: PRESENT: depressed Results Laboratory Results: 11/10/19 05:35 11/10/19 05:35 11/08/19 11/10/19 11/10/19 13:17 05:35 05:35 WBC 3.4 L RBC 4.26 Hgb 12.7 Hct 36.9 MCV 87 MCH 29.8 MCHC 34.3 RDW 13.2 Plt Count 179 Sodium 137.4 Potassium 4.1 Chloride 107 Carbon Dioxide 23 Anion Gap 7 BUN < 2 L Creatinine 0.51 L Est GFR ( Amer) > 60 Glucose 100 Calcium 9.3 Magnesium 1.7 Vitamin B1 152.5 11/08/19 11/08/19 11/09/19 20:44 20:44 02:57 Creatine Kinase 22 L CK-MB (CK-2) < 0.22 < 0.22 Troponin I < 0.012 < 0.012 11/09/19 11/09/19 11/09/19 02:57 08:34 08:34 Creatine Kinase 23 L < 20 L CK-MB (CK-2) < 0.22 Troponin I < 0.012 Assessment and Plan - Diagnosis (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 Is this a current diagnosis for this admission?: Yes (2) Nausea and vomiting Qualifiers: Vomiting Intractability: intractable Is this a current diagnosis for this admission?: Yes (3) Sinus tachycardia by electrocardiogram Is this a current diagnosis for this admission?: Yes (4) Abdominal pain Qualifiers: Abdominal location: upper abdomen, unspecified Qualified Code(s): R10.10 - Upper abdominal pain, unspecified Is this a current diagnosis for this admission?: Yes (5) Vomiting Qualifiers: Vomiting type: unspecified Vomiting Intractability: intractable Nausea presence: with nausea Qualified Code(s): R11.2 - Nausea with vomiting, unspecified Is this a current diagnosis for this admission?: Yes - Plan Summary Summary: The patient's sinus tachycardia observed on the EKG at admission, has subsequently resolved and at the time of this consultation she appears to be in a normal sinus rhythm. EKG does suggest some nonspecific T wave changes and therefore serial cardiac enzymes, a magnesium level and a thyroid profile will be obtained. Patient will remain on telemetry and we will treat her tachycardia should it recur with IV metoprolol 5 mg every 4 hours as needed for sustained heart rate greater than 110. Serial lipase and amylase determinations will be obtained. Patient will continue on hydromorphone 2 mg IV every 4 hours as needed for pain and Ativan 1 mg IV every 4 hours as needed for anxiety or restlessness. CBCs, metabolic profiles and magnesium levels will be obtained as appropriate. Patient will be followed by the hospitalist service as long as necessary. 11/10/2019 Patient's vital signs are stable temperature 98.3 pulse 90 blood pressure 121/86 Admission weight is recorded at 61.5 kg today's weight is 66.8 Patient currently on clear liquids Labs today reveal a normal white count, normal TSH, troponin and CK are negative Lipase is up slightly from admission from 353 up to 380 Hemoglobin A1c is normal 4.7 Patient is potentially scheduled for surgery today for an enterostomy Will follow-up postop. Patient is asymptomatic concerning tachycardia. Patient's heart rate has been under 100 since admission - Time Time Spent with patient: 25-34 minutes
--- NOTE | 2019-11-10 15:36 | Operative Report ---
Nonrecallable Operative Report DATE OF SURGERY: 11/10/19 PREOPERATIVE DIAGNOSIS: Status post total gastrectomy with Meghan Y reconstruction POSTOPERATIVE DIAGNOSIS: Status post total gastrectomy with Meghan-en-Y reconstruction OPERATION: Diagnostic laparoscopy with lysis of adhesions repair of mesenteric hernia jejunostomy tube placement and diagnostic endoscopy SURGEON: IVANNA MARSH ANESTHESIA: GA - None TISSUE REMOVED OR ALTERED: None COMPLICATIONS: None ESTIMATED BLOOD LOSS: 5 cc INTRAOPERATIVE FINDINGS: At the endoscopic portion of the procedure we noted a small patent leg of the Meghan limb there was less than about 3 cm in length there was some radhika noted at the esophagojejunostomy but there was no obvious ulcer we scope the Meghan limb up to approximately 30 cm from the GE J anastomosis. There were significant adhesions of colon to the anterior abdominal wall as well as a mesenteric defect at the JJ anastomosis which was repaired PROCEDURE: Patient was brought to the operating after being intubated in the negative pressure rooms as per COVID-19 protocol. The patient was then placed on the operative table supine position the abdomen was prepped and draped in usual sterile fashion. after appropriate timeout site verification the procedure commenced. A varies needle was placed into the umbilicus and the abdomen was insufflated 6 L CO2 gas. An infraumbilical 10 mm incision was made with a 15 blade and a 10 mm port placed in the abdominal cavity intra-abdominal visualization revealed no evidence of Veress needle or trocar injury. There were marked adhesions of the Meghan limb and the liver and part of the transverse colon to the anterior abdominal wall. We placed 2 5 mm ports in the right side under direct vision. We took down the adhesions with blunt sharp dissection using the LigaSure device. We then lifted up the left lobe of the liver and continued our dissection of the adhesions to identify the Meghan limb as it traversed underneath the left lobe of the liver in a retrocolic fashion to the esophagus. I then asked anesthesia to pass an NG tube so I could identify the Meghan limb. After some dissection of the most proximal portion of the Meghan limb just below the esophagus we were able to get the NG tube to pass and brought it down into the proximal Meghan limb and identified as it came underneath the colon. I then identified the biliary limb and noted that it was not kinked however there was a moderate sized mesenteric hernia. There was no loops of bowel within the hernia but it was obviously present. I closed it with interrupted 2-0 silk sutures. I then ran the rest of the small bowel distally there was no further adhesions. I picked a point distal to the jejunojejunostomy for our J-tube. I picked a point on the left anterior abdominal wall where made a transverse incision about 3 inches long carried our dissection down through external and internal oblique muscle with Bovie cautery to identify the peritoneum which was opened transversely then grasped that loop was small bowel brought through that wound I used a 2-0 chromic suture placed a pursestring into the small bowel. I then passed the jejunostomy tube through a separate opening inferior to that incision and brought into the up into the abdomen and up through the wound I placed that into the small bowel and reefed it in approximately 60 cm. I then tied down the pursestring suture and fixing the tube in place I performed a Witzel maneuver using 2-0 silk suture. Return the small bowel back to the abdominal cavity we closed the transverse incision and in 2 layers the transversus abdominis and the peritoneum in 1 layer and the oblique musculature and separate Raj using interrupted 0 Vicryl suture. We closed the subcutaneous tissue with 3-0 Vicryl close the skin with intracuticular 4-0 Biosyn. I then placed the camera back into the abdominal cavity tacked the jejunal limb up to the anterior abdominal wall with 3 sutures placed equidistant around the jejunostomy tube. There is 2-0 silk utilized for this. We then reduce the pneumoperitoneum. The tube is irrigated well. We then closed the umbilical port site with 0 Vicryl in the fascia and then closed all 3 other camera and port incisions with intracuticular 4-0 Biosyn Steri-Strips completed the procedure we then turned attention to the endoscopy use the Olympus gastroscope passed into the posterior pharynx and passed into the proximal esophagus we traversed the esophagus down to the GJ anastomosis were noted number of exposed radhika but there is no obvious ulcer. The candycane limb was approximately 3 cm long we then passed the scope into the Meghan limb and and passed a down approximately 30 to 40 cm I did not note the biliary anastomosis at that point. I then slowly removed the scope again examining for any ulcerations and there were none. I then slowly withdrew the scope. We then placed very strips on the wounds for the dressings which completed the procedure estimated blood loss was less than 10 cc sponge needle counts correct x2 the patient was then transferred back to the negative pressure room for extubation. No complications sponge needle counts correct x2
[2019-11-10] MEDS ORDERED: LABETALOL HCL INJ 20 MG/4 ML DISP.SYRIN IV ONE (16:03)
[2019-11-10] MEDS: ZOLPIDEM TARTRATE 5 MG TABLET PO PRN (22:55)
[2019-11-11] MEDS: METOCLOPRAMIDE HCL INJ/PF 10 MG/2 ML SDV IV SCH ×4 (00:13→17:27)
[2019-11-11] MEDS: KETOROLAC TROMETHAMINE INJ/PF 30 MG/1 ML SDV IV SCH ×4 (00:13→17:27)
[2019-11-11] MEDS: HYDROMORPHONE HCL INJ/PF 2 MG/ML AMPULE IV PRN ×5 (02:16→20:35)
[2019-11-11] MEDS: PROMETHAZINE HCL INJ 25 MG/1 ML VIAL IV PRN ×4 (03:47→22:58)
[2019-11-11] MEDS: LORAZEPAM INJ 2 MG/1 ML VIAL IV PRN ×4 (03:47→22:58)
[2019-11-11] MEDS: POTASSI CL 20 MEQ/D5-1/2NS 1L 1000 ML IV PRN ×3 (03:48→20:38)
[2019-11-11 06:02] LABS: HEMATOCRIT 38.6 % (36.0-47.0); HEMOGLOBIN 13.3 g/dL (12.0-15.5); MEAN CORPUSCULAR HEMOGLOBIN 29.9 pg (27.0-33.4); MEAN CORPUSCULAR HGB CONC 34.4 g/dL (32.0-36.0); MEAN CORPUSCULAR VOLUME 87 fl (80-97); PLATELET COUNT 236 10^3/uL (150-450); RED BLOOD COUNT 4.43 10^6/uL (3.72-5.28); RED CELL DISTRIBUTION WIDTH 13.3 % (11.5-14.0)
[2019-11-11 06:20] LABS: ANION GAP 7 (5-19); CALCIUM 9.3 mg/dL (8.4-10.2); CARBON DIOXIDE 25 mmol/L (22-30); CHLORIDE 105 mmol/L (98-107); GLUCOSE 105 mg/dL (75-110); POTASSIUM 4.1 mmol/L (3.6-5.0)
[2019-11-11 06:21] LABS: BLOOD UREA NITROGEN < 2 mg/dL (7-20); WHITE BLOOD COUNT 11.4 10^3/uL (4.0-10.5)
[2019-11-11] MEDS: SUCRALFATE 1 GM TABLET PO SCH ×4 (08:13→21:11)
--- NOTE | 2019-11-11 10:33 | PDOC PROGRESS REPORT ---
Subjective Progress Note for:: 11/11/19 Subjective:: c/o nausea, pain Reason For Visit: ACQUIRED ABSENCE OF STOMACH [PART OF] Physical Exam Vital Signs: Temp Pulse Resp BP Pulse Ox 98.1 F 102 H 18 113/89 H 99 11/11/19 08:00 11/11/19 08:00 11/11/19 08:00 11/11/19 08:00 11/11/19 08:00 Intake & Output 11/10/19 11/11/19 11/12/19 06:59 06:59 06:59 Intake Total 5006 3927 Output Total 0 250 Balance 5006 3677 Weight 66.8 kg 67.6 kg General appearance: PRESENT: no acute distress Head exam: PRESENT: normocephalic Eye exam: PRESENT: EOMI Ear exam: PRESENT: normal external ear exam Mouth exam: PRESENT: moist Neck exam: PRESENT: full ROM Respiratory exam: PRESENT: clear to auscultation jose Cardiovascular exam: PRESENT: RRR Pulses: PRESENT: normal radial pulses, normal femoral pulses Vascular exam: PRESENT: normal capillary refill Breast: PRESENT: Normal GI/Abdominal exam: PRESENT: soft Rectal exam: PRESENT: deferred Extremities exam: PRESENT: full ROM Musculoskeletal exam: PRESENT: full ROM Neurological exam: PRESENT: alert, awake, oriented to person, oriented to place Psychiatric exam: PRESENT: anxious Skin exam: PRESENT: dry Results Laboratory Results: 11/11/19 05:08 11/11/19 05:08 11/11/19 11/11/19 05:08 05:08 WBC 11.4 H D RBC 4.43 Hgb 13.3 Hct 38.6 MCV 87 MCH 29.9 MCHC 34.4 RDW 13.3 Plt Count 236 Sodium 137.3 Potassium 4.1 Chloride 105 Carbon Dioxide 25 Anion Gap 7 BUN < 2 L Creatinine 0.53 Est GFR ( Amer) > 60 Glucose 105 Calcium 9.3 Magnesium 1.6 11/08/19 11/08/19 11/09/19 20:44 20:44 02:57 Creatine Kinase 22 L CK-MB (CK-2) < 0.22 < 0.22 Troponin I < 0.012 < 0.012 11/09/19 11/09/19 11/09/19 02:57 08:34 08:34 Creatine Kinase 23 L < 20 L CK-MB (CK-2) < 0.22 Troponin I < 0.012 Assessment & Plan - Plan Summary Plan Summary: chronic nausea, pain from surgery yesterday will cont with ativandilaudid,jailyn monique pt difficult seconday to prob gastrectomy neurosis may need psych consult in next day or two will start tube feeds today.
[2019-11-11] MEDS: THIAMINE HCL INJ 200 MG/2 ML VIAL IM SCH (10:52)
--- NOTE | 2019-11-11 10:57 | PDOC PROGRESS REPORT ---
Subjective Progress Note for:: 11/11/19 Reason For Visit: ACQUIRED ABSENCE OF STOMACH [PART OF] 11/11/2019 Jessica consulted for sinus tachycardia. Physical Exam Vital Signs: Temp Pulse Resp BP Pulse Ox 98.1 F 102 H 18 113/89 H 99 11/11/19 08:00 11/11/19 08:00 11/11/19 08:00 11/11/19 08:00 11/11/19 08:00 Intake & Output 11/10/19 11/11/19 11/12/19 06:59 06:59 06:59 Intake Total 5006 3927 Output Total 0 250 Balance 5006 3677 Weight 66.8 kg 67.6 kg General appearance: PRESENT: no acute distress, well-developed, well-nourished Respiratory exam: PRESENT: clear to auscultation jose. ABSENT: rales, rhonchi, wheezes Cardiovascular exam: PRESENT: RRR. ABSENT: diastolic murmur, rubs, systolic murmur GI/Abdominal exam: PRESENT: other - Deferred to general surgery Neurological exam: PRESENT: alert, awake, oriented to person, oriented to place, oriented to time, oriented to situation, CN II-XII grossly intact. ABSENT: motor sensory deficit Psychiatric exam: PRESENT: anxious, depressed, unusual affect Results Laboratory Results: 11/11/19 05:08 11/11/19 05:08 11/11/19 11/11/19 05:08 05:08 WBC 11.4 H D RBC 4.43 Hgb 13.3 Hct 38.6 MCV 87 MCH 29.9 MCHC 34.4 RDW 13.3 Plt Count 236 Sodium 137.3 Potassium 4.1 Chloride 105 Carbon Dioxide 25 Anion Gap 7 BUN < 2 L Creatinine 0.53 Est GFR ( Amer) > 60 Glucose 105 Calcium 9.3 Magnesium 1.6 11/08/19 11/08/19 11/09/19 20:44 20:44 02:57 Creatine Kinase 22 L CK-MB (CK-2) < 0.22 < 0.22 Troponin I < 0.012 < 0.012 11/09/19 11/09/19 11/09/19 02:57 08:34 08:34 Creatine Kinase 23 L < 20 L CK-MB (CK-2) < 0.22 Troponin I < 0.012 Assessment and Plan - Diagnosis (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 Is this a current diagnosis for this admission?: Yes (2) Nausea and vomiting Qualifiers: Vomiting Intractability: intractable Is this a current diagnosis for this admission?: Yes (3) Sinus tachycardia by electrocardiogram Is this a current diagnosis for this admission?: Yes (4) Abdominal pain Qualifiers: Abdominal location: upper abdomen, unspecified Qualified Code(s): R10.10 - Upper abdominal pain, unspecified Is this a current diagnosis for this admission?: Yes (5) Vomiting Qualifiers: Vomiting type: unspecified Vomiting Intractability: intractable Nausea presence: with nausea Qualified Code(s): R11.2 - Nausea with vomiting, unspecified Is this a current diagnosis for this admission?: Yes - Plan Summary Summary: The patient's sinus tachycardia observed on the EKG at admission, has subsequently resolved and at the time of this consultation she appears to be in a normal sinus rhythm. EKG does suggest some nonspecific T wave changes and therefore serial cardiac enzymes, a magnesium level and a thyroid profile will be obtained. Patient will remain on telemetry and we will treat her tachycardia should it recur with IV metoprolol 5 mg every 4 hours as needed for sustained heart rate greater than 110. Serial lipase and amylase determinations will be obtained. Patient will continue on hydromorphone 2 mg IV every 4 hours as needed for pain and Ativan 1 mg IV every 4 hours as needed for anxiety or restlessness. CBCs, metabolic profiles and magnesium levels will be obtained as appropriate. Patient will be followed by the hospitalist service as long as necessary. 11/10/2019 Patient's vital signs are stable temperature 98.3 pulse 90 blood pressure 121/86 Admission weight is recorded at 61.5 kg today's weight is 66.8 Patient currently on clear liquids Labs today reveal a normal white count, normal TSH, troponin and CK are negative Lipase is up slightly from admission from 353 up to 380 Hemoglobin A1c is normal 4.7 Patient is potentially scheduled for surgery today for an enterostomy Will follow-up postop. Patient is asymptomatic concerning tachycardia. Patient's heart rate has been under 100 since admission 11/11/2019 Patient remains afebrile temperature 98.1 Heart rate this morning is 102, but has been as high as 131 last night around midnight Looks like patient's normal heart rate, at least since admission is around 90 This morning I asked her if she is ever been on any medicine for depression she says that she has and she currently is on that medicine. Only medicine I see at home was Ativan. Patient seems to need something like an SSRI and I am going to speak with her about her past psychiatric history, as I feel that this is a part of her current medical problems. The way that she is dealing with her pain, and medications. Certainly patient has no obvious pathology that would account for her t achycardia, at this time. Patient seems very anxious that we are going to stop her pain medicine and medicine for nausea and vomiting. Patient's labs appear stable - Time Time Spent with patient: 35 or more minutes
--- NOTE | 2019-11-11 13:25 | Progress Note ---
Provider Note Provider Note: Patient was taking Paxil 30 mg since June 2019, for what sounds like situational depression. Prior to that Trazadone. Has been on antidepressants for about 1 year. Unfortunately should probably not take Reglan with Paxil, due to tardive dyskinesia side effects. Patient has recently started seeing a new therapist. If and when not on Reglan would resume Paxil.
[2019-11-11] MEDS: MAG HYDROX/AL HYDROX/SIMETH SUSP 30 ML UDCUP PO PRN (17:27)
[2019-11-11] MEDS: ZOLPIDEM TARTRATE 5 MG TABLET PO PRN (23:07)
[2019-11-12] MEDS: KETOROLAC TROMETHAMINE INJ/PF 30 MG/1 ML SDV IV SCH ×3 (00:08→11:42)
[2019-11-12] MEDS: POTASSI CL 20 MEQ/D5-1/2NS 1L 1000 ML IV PRN ×3 (00:09→18:12)
[2019-11-12] MEDS: METOCLOPRAMIDE HCL INJ/PF 10 MG/2 ML SDV IV SCH ×4 (00:09→18:13)
[2019-11-12] MEDS: HYDROMORPHONE HCL INJ/PF 2 MG/ML AMPULE IV PRN ×4 (00:44→18:22)
[2019-11-12] MEDS: PROMETHAZINE HCL INJ 25 MG/1 ML VIAL IV PRN ×2 (05:58→11:42)
[2019-11-12] MEDS: LORAZEPAM INJ 2 MG/1 ML VIAL IV PRN (06:10)
--- NOTE | 2019-11-12 07:59 | PDOC PROGRESS REPORT ---
Subjective Progress Note for:: 11/12/19 Subjective:: still c/o nausea vomiting Reason For Visit: ACQUIRED ABSENCE OF STOMACH [PART OF] Physical Exam Vital Signs: Temp Pulse Resp BP Pulse Ox 99.5 F 118 H 16 126/89 H 100 11/11/19 23:15 11/11/19 23:15 11/11/19 23:15 11/11/19 23:15 11/11/19 23:15 Intake & Output 11/11/19 11/12/19 11/13/19 06:59 06:59 06:59 Intake Total 3927 2884 Output Total 250 Balance 3677 2884 Weight 67.6 kg 67 kg General appearance: PRESENT: no acute distress, other - sleepy, needs to be aroused Eye exam: PRESENT: EOMI Ear exam: PRESENT: normal external ear exam Mouth exam: PRESENT: moist Neck exam: PRESENT: full ROM Respiratory exam: PRESENT: clear to auscultation jose Cardiovascular exam: PRESENT: RRR Pulses: PRESENT: normal radial pulses, normal femoral pulses Vascular exam: PRESENT: normal capillary refill GI/Abdominal exam: PRESENT: soft, other - jtube site clean Rectal exam: PRESENT: deferred Extremities exam: PRESENT: full ROM Musculoskeletal exam: PRESENT: full ROM Neurological exam: PRESENT: alert, awake, oriented to person, other - appears sedated Psychiatric exam: PRESENT: depressed Skin exam: PRESENT: dry Results Laboratory Results: 11/11/19 05:08 11/11/19 05:08 11/08/19 11/08/19 11/09/19 20:44 20:44 02:57 Creatine Kinase 22 L CK-MB (CK-2) < 0.22 < 0.22 Troponin I < 0.012 < 0.012 11/09/19 11/09/19 11/09/19 02:57 08:34 08:34 Creatine Kinase 23 L < 20 L CK-MB (CK-2) < 0.22 Troponin I < 0.012 Assessment & Plan - Plan Summary Plan Summary: will decrease ativan and dilaudid cont tube feeds increase activtity poss dc home in 1 or 2 days.
[2019-11-12] MEDS: SUCRALFATE 1 GM TABLET PO SCH ×4 (09:54→22:40)
[2019-11-12] MEDS: METOPROLOL TARTRATE PF/INJ 5 MG/5 ML SDV IV PRN ×2 (11:43→18:12)
--- NOTE | 2019-11-12 11:49 | PDOC PROGRESS REPORT ---
Subjective Progress Note for:: 11/12/19 Reason For Visit: ACQUIRED ABSENCE OF STOMACH [PART OF] 11/12/2019 Tachycardia, surgical absence of stomach, depression Physical Exam Vital Signs: Temp Pulse Resp BP Pulse Ox 99.1 F 127 H 16 135/85 H 99 11/12/19 08:00 11/12/19 08:00 11/12/19 08:00 11/12/19 08:00 11/12/19 08:00 Intake & Output 11/11/19 11/12/19 11/13/19 06:59 06:59 06:59 Intake Total 3927 2884 Output Total 250 Balance 3677 2884 Weight 67.6 kg 67 kg General appearance: PRESENT: mild distress Respiratory exam: PRESENT: clear to auscultation jose. ABSENT: rales, rhonchi, wheezes Cardiovascular exam: PRESENT: RRR, tachycardia. ABSENT: diastolic murmur, rubs, systolic murmur Neurological exam: PRESENT: alert, awake, oriented to person, oriented to place, oriented to time, oriented to situation, CN II-XII grossly intact. 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 Is this a current diagnosis for this admission?: Yes (2) Nausea and vomiting Qualifiers: Vomiting Intractability: intractable Is this a current diagnosis for this admission?: Yes (3) Sinus tachycardia by electrocardiogram Is this a current diagnosis for this admission?: Yes (4) Abdominal pain Qualifiers: Abdominal location: upper abdomen, unspecified Qualified Code(s): R10.10 - Upper abdominal pain, unspecified Is this a current diagnosis for this admission?: Yes (5) Vomiting Qualifiers: Vomiting type: unspecified Vomiting Intractability: intractable Nausea presence: with nausea Qualified Code(s): R11.2 - Nausea with vomiting, unspecified Is this a current diagnosis for this admission?: Yes (6) Depression Is this a current diagnosis for this admission?: Yes - Plan Summary Summary: The patient's sinus tachycardia observed on the EKG at admission, has subsequently resolved and at the time of this consultation she appears to be in a normal sinus rhythm. EKG does suggest some nonspecific T wave changes and therefore serial cardiac enzymes, a magnesium level and a thyroid profile will be obtained. Patient will remain on telemetry and we will treat her tachycardia should it recur with IV metoprolol 5 mg every 4 hours as needed for sustained heart rate greater than 110. Serial lipase and amylase determinations will be obtained. Patient will continue on hydromorphone 2 mg IV every 4 hours as needed for pain and Ativan 1 mg IV every 4 hours as needed for anxiety or restlessness. CBCs, metabolic profiles and magnesium levels will be obtained as appropriate. Patient will be followed by the hospitalist service as long as necessary. 11/10/2019 Patient's vital signs are stable temperature 98.3 pulse 90 blood pressure 121/86 Admission weight is recorded at 61.5 kg today's weight is 66.8 Patient currently on clear liquids Labs today reveal a normal white count, normal TSH, troponin and CK are negative Lipase is up slightly from admission from 353 up to 380 Hemoglobin A1c is normal 4.7 Patient is potentially scheduled for surgery today for an enterostomy Will follow-up postop. Patient is asymptomatic concerning tachycardia. Patient's heart rate has been under 100 since admission 11/11/2019 Patient remains afebrile temperature 98.1 Heart rate this morning is 102, but has been as high as 131 last night around midnight Looks like patient's normal heart rate, at least since admission is around 90 This morning I asked her if she is ever been on any medicine for depression she says that she has and she currently is on that medicine. Only medicine I see at home was Ativan. Patient seems to need something like an SSRI and I am going to speak with her about her past psychiatric history, as I feel that this is a part of her current medical problems. The way that she is dealing with her pain, and medications. Certainly patient has no obvious pathology that would account for her tachycardia, at this time. Patient seems very anxious that we are going to stop her pain medicine and medicine for nausea and vomiting. Patient's labs appear stable 11/12/2019 Patient is once again become more tachycardic since yesterday afternoon with a rate anywhere from 102 to 129. This appears to be sinus tach. She is supposed to be getting metoprolol IV every 4 hours for her tachycardia, but has not rece ived any. I have called patient's nurse and informed her to give the metoprolol for her tachycardia. I truly think that her tachycardia is based on her anxiety. Temperature is up slightly today to 99.5. This is about a degree higher than her normal temperature Yesterday her white count had gone up to 11,400 and I am going to repeat her blood work today She was getting D5 half-normal saline at 150 an hour. I am going to continue this. Patient continues to be nauseated and in fact vomited just recently. I have ordered a scopolamine patch for this nausea in addition to what she is already t aking. According to nursing she is fixated on her medications, what she is getting, when she is getting, how much she is getting. - Time Time Spent with patient: 25-34 minutes
[2019-11-12] MEDS: SCOPOLAMINE HYDROBROMIDE 1.5 MG PATCH.TD72 TD SCH (11:58)
[2019-11-12 12:59] LABS: ABSOLUTE EOSINOPHILS # (AUTO) 0.1 10^3/uL (0.0-0.6); ABSOLUTE LYMPHOCYTES (AUTO) 0.4 10^3/uL (0.5-4.7); ABSOLUTE MONOCYTES (AUTO) 0.4 10^3/uL (0.1-1.4); ABSOLUTE NEUT (AUTO) 7.2 10^3/uL (1.7-8.2); BASOPHILS % (AUTO) 0.2 % (0-2); EOSINOPHILS % (AUTO) 1.6 % (0-6); HEMATOCRIT 35.7 % (36.0-47.0); HEMOGLOBIN 12.3 g/dL (12.0-15.5); LYMPHOCYTES % (AUTO) 5.2 % (13-45); MEAN CORPUSCULAR HEMOGLOBIN 29.8 pg (27.0-33.4); MEAN CORPUSCULAR HGB CONC 34.5 g/dL (32.0-36.0); MEAN CORPUSCULAR VOLUME 86 fl (80-97); MONOCYTES % (AUTO) 5.3 % (3-13); PLATELET COUNT 203 10^3/uL (150-450); RED BLOOD COUNT 4.14 10^6/uL (3.72-5.28); SEGMENTED NEUTROPHILS % (AUTO) 87.7 % (42-78); TOTAL CELLS COUNTED % (AUTO) 100 %; WHITE BLOOD COUNT 8.2 10^3/uL (4.0-10.5)
[2019-11-12 13:22] LABS: ANION GAP 7 (5-19); BLOOD UREA NITROGEN 4 mg/dL (7-20); CALCIUM 8.8 mg/dL (8.4-10.2); CARBON DIOXIDE 21 mmol/L (22-30); CHLORIDE 104 mmol/L (98-107); GLUCOSE 121 mg/dL (75-110); POTASSIUM 4.2 mmol/L (3.6-5.0)
[2019-11-12] MEDS ORDERED: CAPSAICIN 0.025% CREAM 60 GM TP SCH (18:00)
--- NOTE | 2019-11-12 18:09 | Progress Note ---
Provider Note Provider Note: 11/12/2019 1700 hrs. earlier this afternoon on afternoon rounds patient states that she was still nauseated and having intermittent vomiting. However 2 hours later patient's nurse called me and said that patient had persistent vomiting,that she herself had seen. Patient is watching the clock and asking for her medications as they are due on a PRN basis. Patient is almost displaying a type of drug- seeking behavior according to the nurses. Patient was almost falling asleep while she was speaking to me, she stated it was because "I am exhausted". I reviewed all of her medications that she is currently on and they appear to be adequate for most people with complaint of vomiting. Reglan 10 mg IV every 6 hours, Phenergan 25 mg IV every 6 hours, Carafate 1 g p.o., Ativan 1 mg IV every 12 hours,and today I added a scopolamine patch. She is also getting IV fluids, rate of 150/h D5 and half-normal saline with 20 of K. Changes that have made currently include discontinuing the Phenergan IV and changing that to 25 mg suppositories every 6, discontinuing the Toradol IV and change that to p.o. Ultram. Adding a Protonix drip. Adding capsaicin topical ointment 1 time daily. She has only had the scopolamine patch on for about 4 hours. I feel as though the patient was wanting us to increase her schedule of Ativan and pain medicine for her vomiting, and I do not think that is appropriate at the time. Other drugs that were considered include Haldol,Risperdol as well as Thorazine, and Marinol
[2019-11-12] MEDS: TRAMADOL HCL 50 MG TABLET PO PRN (20:02)
[2019-11-12] MEDS ORDERED: PANTOPRAZOLE SODIUM 40 MG VIAL IV ONE (20:58)
[2019-11-12] MEDS: NORMAL SALINE 100 ML with PANTOPRAZOLE SODIUM 80 MG IV PRN ×2 (22:34)
[2019-11-13] MEDS: HYDROMORPHONE HCL INJ/PF 2 MG/ML AMPULE IV PRN ×4 (00:25→18:46)
[2019-11-13] MEDS: POTASSI CL 20 MEQ/D5-1/2NS 1L 1000 ML IV PRN ×3 (00:25→17:46)
[2019-11-13] MEDS: METOCLOPRAMIDE HCL INJ/PF 10 MG/2 ML SDV IV SCH ×5 (00:26→23:56)
[2019-11-13] MEDS: TRAMADOL HCL 50 MG TABLET PO PRN ×3 (02:24→15:17)
[2019-11-13] MEDS: PROMETHAZINE HCL 25 MG SUPP.RECT PR PRN ×2 (02:34→09:04)
--- NOTE | 2019-11-13 08:49 | PDOC PROGRESS REPORT ---
Subjective Progress Note for:: 11/13/19 Subjective:: still nauseatd and had nurses turn off the j-tube feeds. Reason For Visit: ACQUIRED ABSENCE OF STOMACH [PART OF] Physical Exam Vital Signs: Temp Pulse Resp BP Pulse Ox 98.7 F 108 H 16 112/88 H 98 11/12/19 23:04 11/12/19 23:04 11/12/19 23:04 11/12/19 23:04 11/12/19 23:04 Intake & Output 11/12/19 11/13/19 11/14/19 06:59 06:59 06:59 Intake Total 3884 2905 Balance 3884 2905 Weight 67 kg 64.3 kg General appearance: PRESENT: no acute distress Head exam: PRESENT: normocephalic Eye exam: PRESENT: EOMI Mouth exam: PRESENT: moist Neck exam: PRESENT: full ROM Respiratory exam: PRESENT: clear to auscultation jose Cardiovascular exam: PRESENT: RRR Pulses: PRESENT: normal femoral pulses, normal dorsalis pedis pul Vascular exam: PRESENT: normal capillary refill GI/Abdominal exam: PRESENT: soft Rectal exam: PRESENT: deferred Extremities exam: PRESENT: full ROM Musculoskeletal exam: PRESENT: full ROM Neurological exam: PRESENT: alert, altered, awake Psychiatric exam: PRESENT: depressed Skin exam: PRESENT: dry Results Laboratory Results: 11/12/19 12:52 11/12/19 12:52 11/12/19 11/12/19 12:52 12:52 WBC 8.2 RBC 4.14 Hgb 12.3 Hct 35.7 L MCV 86 MCH 29.8 MCHC 34.5 RDW 13.0 Plt Count 203 Seg Neutrophils % 87.7 H Sodium 131.8 L Potassium 4.2 Chloride 104 Carbon Dioxide 21 L Anion Gap 7 BUN 4 L Creatinine 0.50 L Est GFR ( Amer) > 60 Glucose 121 H Calcium 8.8 11/08/19 11/08/19 11/09/19 20:44 20:44 02:57 Creatine Kinase 22 L CK-MB (CK-2) < 0.22 < 0.22 Troponin I < 0.012 < 0.012 11/09/19 11/09/19 11/09/19 02:57 08:34 08:34 Creatine Kinase 23 L < 20 L CK-MB (CK-2) < 0.22 Troponin I < 0.012 Assessment & Plan - Plan Summary Plan Summary: pt still nauseated and dry heaving nurses state she does not appear to be vomiting liquids she refused tube feeds due to nausea, however denies nausea is any different than before the j-tube was placed spoke with this am ] stated she continures to dry heave all night while at home in bed pt has seen psych and is on paxil, has not been taking it while in hospital pt has been on ativan,zofran,phenergan,compazine,for nausea. plan will ask psych to see pt will try scopalamine patch will explore possiblitly of droperadol will cont tube feeds for now.
[2019-11-13] MEDS: MAG HYDROX/AL HYDROX/SIMETH SUSP 30 ML UDCUP PO PRN (09:04)
[2019-11-13] MEDS: SUCRALFATE 1 GM TABLET PO SCH ×4 (09:05→22:20)
[2019-11-13] MEDS ORDERED: SCOPOLAMINE HYDROBROMIDE 1.5 MG PATCH.TD72 TD SCH (10:00)
[2019-11-13] MEDS: NORMAL SALINE 100 ML with PANTOPRAZOLE SODIUM 80 MG IV PRN ×4 (11:43→22:27)
[2019-11-13] MEDS: LORAZEPAM INJ 2 MG/1 ML VIAL IV PRN (13:00)
--- NOTE | 2019-11-13 14:43 | PDOC PROGRESS REPORT ---
Subjective Progress Note for:: 11/13/19 Reason For Visit: ACQUIRED ABSENCE OF STOMACH [PART OF] 11/13/2019 Tachycardia, anxiety, surgical absence of stomach, depression Physical Exam Vital Signs: Temp Pulse Resp BP Pulse Ox 98.7 F 109 H 15 122/85 99 11/13/19 11:53 11/13/19 11:53 11/13/19 11:53 11/13/19 11:53 11/13/19 11:53 Intake & Output 11/12/19 11/13/19 11/14/19 06:59 06:59 06:59 Intake Total 3884 2905 1100 Balance 3884 2905 1100 Weight 67 kg 64.3 kg General appearance: PRESENT: mild distress, other - Nausea Respiratory exam: PRESENT: clear to auscultation jose. ABSENT: rales, rhonchi, wheezes Cardiovascular exam: PRESENT: RRR. ABSENT: diastolic murmur, rubs, systolic murmur GI/Abdominal exam: PRESENT: other - Deferred to general surgery Neurological exam: PRESENT: alert, awake, oriented to person, oriented to place, oriented to time, oriented to situation, CN II-XII grossly intact. 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 Is this a current diagnosis for this admission?: Yes (2) Nausea and vomiting Qualifiers: Vomiting Intractability: intractable Is this a current diagnosis for this admission?: Yes (3) Sinus tachycardia by electrocardiogram Is this a current diagnosis for this admission?: Yes (4) Abdominal pain Qualifiers: Abdominal location: upper abdomen, unspecified Qualified Code(s): R10.10 - Upper abdominal pain, unspecified Is this a current diagnosis for this admission?: Yes (5) Vomiting Qualifiers: Vomiting type: unspecified Vomiting Intractability: intractable Nausea presence: with nausea Qualified Code(s): R11.2 - Nausea with vomiting, unspecified Is this a current diagnosis for this admission?: Yes (6) Depression Is this a current diagnosis for this admission?: Yes (7) Anxiety Is this a current diagnosis for this admission?: Yes (8) Drug-seeking behavior Is this a current diagnosis for this admission?: Yes - Plan Summary Summary: The patient's sinus tachycardia observed on the EKG at admission, has subsequently resolved and at the time of this consultation she appears to be in a normal sinus rhythm. EKG does suggest some nonspecific T wave changes and therefore serial cardiac enzymes, a magnesium level and a thyroid profile will be obtained. Patient will remain on telemetry and we will treat her tachycardia should it recur with IV metoprolol 5 mg every 4 hours as needed for sustained heart rate greater than 110. Serial lipase and amylase determinations will be obtained. Patient will continue on hydromorphone 2 mg IV every 4 hours as needed for pain and Ativan 1 mg IV every 4 hours as needed for anxiety or res tlessness. CBCs, metabolic profiles and magnesium levels will be obtained as appropriate. Patient will be followed by the hospitalist service as long as necessary. 11/10/2019 Patient's vital signs are stable temperature 98.3 pulse 90 blood pressure 121/86 Admission weight is recorded at 61.5 kg today's weight is 66.8 Patient currently on clear liquids Labs today reveal a normal white count, normal TSH, troponin and CK are negative Lipase is up slightly from admission from 353 up to 380 Hemoglobin A1c is normal 4.7 Patient is potentially scheduled for surgery today for an enterostomy Will follow-up postop. Patient is asymptomatic concerning tachycardia. Patient's heart rate has been under 100 since admission 11/11/2019 Patient remains afebrile temperature 98.1 Heart rate this morning is 102, but has been as high as 131 last night around midnight Looks like patient's normal heart rate, at least since admission is around 90 This morning I asked her if she is ever been on any medicine for depression she says that she has and she currently is on that medicine. Only medicine I see at home was Ativan. Patient seems to need something like an SSRI and I am going to speak with her about her past psychiatric history, as I feel that this is a part of her current medical problems. The way that she is dealing with her pain, and medications. Certainly patient has no obvious pathology that would account for her tachycardia, at this time. Patient seems very anxious that we are going to stop her pain medicine and medicine for nausea and vomiting. Patient's labs appear stable 11/12/2019 Patient is once again become more tachycardic since yesterday afternoon with a rate anywhere from 102 to 129. This appears to be sinus tach. She is supposed to be getting metoprolol IV every 4 hours for her tachycardia, but has not received any. I have called patient's nurse and informed her to give the metoprolol for her tachycardia. I truly think that her tachycardia is based on her anxiety. Temperature is up slightly today to 99.5. This is about a degree higher than her normal temperature Yesterday her white count had gone up to 11,400 and I am going to repeat her blood work today She was getting D5 half-normal saline at 150 an hour. I am going to continue this. Patient continues to be nauseated and in fact vomited just recently. I have ordered a scopolamine patch for this nausea in addition to what she is already taking. According to nursing she is fixated on her medications, what she is getting, when she is getting, how much she is getting. 11/13/2019 1430 hrs. once 0 700 this morning patient has had 2 episodes of vomiting, 1 resulting in 60 cc of green fluid the other 70 cc of green fluid. Patient continues to be slightly tachycardic averaging around 110. I am going to add metoprolol 2.5 mg IV every 6 hours. If this seems to lower her heart rate, would switch to a low dose p.o. every 12 hours. Pressure however stable 120/80 Normal white count We will repeat labs tomorrow to include a protein and albumin, amylase lipase and liver functions Patient's antiemetics have been changed and switched multiple times to try to find the right combination. Seem to be somewhat better today than yesterday less vomiting. Psychiatry consult is pending for opinion of the situation. - Time Time Spent with patient: 35 or more minutes
[2019-11-13] MEDS: PROMETHAZINE HCL 25 MG TABLET PO PRN ×2 (17:45→23:56)
[2019-11-13] MEDS: METOPROLOL TARTRATE PF/INJ 5 MG/5 ML SDV IV SCH ×2 (17:45→23:56)
[2019-11-13] MEDS: ZOLPIDEM TARTRATE 5 MG TABLET PO PRN ×2 (22:20→22:23)
--- NOTE | 2019-11-13 22:55 | PSYCHOLOGICAL NOTE ---
Psych Note - Psych Note Date seen by psych provider: 11/13/19 Time seen by psych provider: 15:15 Psych Note: Patient is a 24-year-old female who is hospitalized concerns of post surgical nausea and vomiting following a prophylactic Gastrectomy. Hospitalist placed consult with concerns for a possible eating disorder. 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 Patient reports that she has been "sick all day every day" for the since her surgery to remove her stomach. Patient verbalized frustration with hospital staff and the "snotty answers "she receives from nurses and providers. Patient verbalized a belief that "they think I am faking it." Patient states that she has has pulled stitches vomiting. Patient reports she is in chronic pain. Patient reports she has no concerns with the feeding tube itself. Patient reports that being hooked up to it "makes it worse." Patient states that she is :sick all day and just throws up." Patient reports that she may have to have a PICC line inserted tomorrow. Patient states she is "okay with that if it helps me not vomit." Patient reports she is to a marine who is currently stateside. Patient reports no issues with her marriage. Patient reports that she had no health concerns until after her stomach was removed. Patient states that she has only had 4 surgeries throughout her lifetime. Patient stated she had 3 on her teeth, the feeding tube put in, her stomach removal, and her appendix removed. When asked why she would not go to [facility] for her medical care, patient responded that "[facility] would not understand." Patient stated that she presented to [facility] and they diagnosed her with back pain. Patient reports she came to [facility] the following day and had to have her appendix removed. Patient reports mental health diagnoses of depression and anxiety. Patient is followed by [place] [facility] for medication management and mental health services. Patient denies a history of anorexia or bulimia. Patient was administered the eating attitudes test (EAT-26). Patient's score (X=15) is below the clinical range. Patient is alert and oriented to person, place, time and circumstance. Mood is normal with congruent affect. Patient denies suicidal and homicidal ideations. Delusions are absent and behavior is congruent with an intact reality based presentation (i.e., organized and linear through processes). There is no observed behavior that suggests patient is responding to internal stimuli. Patient is able to engage in organized, rational thought processes. Patient is able to express needs and wants in a logical manner. Patient denies current auditory and visual hallucinations. Eye contact is appropriate. Conversational speech is within normal rate, tone, and prosody. Intellectual ability appears to be within average range. Attention and concentration are good. Insight, judgment and impulse control are currently fair. Impression/Plan: There is concern that some of patient's presentation could be psychosomatic in nature. The behavioral health team recommends a behavioral plan that focuses on patient placing more focus on small bites of food versus focusing on the nausea and vomiting. The behavioral health team requests patient's dinner meal be withheld tomorrow, 11/14/2019, so that behavioral health team can meet with patient and engage with patient in behavior plan. Dr. Saavedra was consulted on the care and management of this patient; attending physician is in agreement with recommendations and disposition.
[2019-11-14] MEDS: POTASSI CL 20 MEQ/D5-1/2NS 1L 1000 ML IV PRN ×3 (00:50→19:12)
[2019-11-14] MEDS: LORAZEPAM INJ 2 MG/1 ML VIAL IV PRN ×3 (00:51→22:48)
[2019-11-14] MEDS: HYDROMORPHONE HCL INJ/PF 2 MG/ML AMPULE IV PRN ×4 (00:51→19:35)
[2019-11-14] MEDS: MAG HYDROX/AL HYDROX/SIMETH SUSP 30 ML UDCUP PO PRN (02:45)
[2019-11-14] MEDS: METOPROLOL TARTRATE PF/INJ 5 MG/5 ML SDV IV SCH ×3 (05:16→19:18)
[2019-11-14] MEDS: METOCLOPRAMIDE HCL INJ/PF 10 MG/2 ML SDV IV SCH ×3 (05:16→19:23)
[2019-11-14 05:33] LABS: ABSOLUTE EOSINOPHILS # (AUTO) 0.1 10^3/uL (0.0-0.6); ABSOLUTE LYMPHOCYTES (AUTO) 1.1 10^3/uL (0.5-4.7); ABSOLUTE MONOCYTES (AUTO) 0.5 10^3/uL (0.1-1.4); ABSOLUTE NEUT (AUTO) 6.2 10^3/uL (1.7-8.2); BASOPHILS % (AUTO) 0.4 % (0-2); EOSINOPHILS % (AUTO) 1.8 % (0-6); HEMATOCRIT 34.7 % (36.0-47.0); MEAN CORPUSCULAR HEMOGLOBIN 29.4 pg (27.0-33.4); MEAN CORPUSCULAR HGB CONC 34.5 g/dL (32.0-36.0); MEAN CORPUSCULAR VOLUME 85 fl (80-97); MONOCYTES % (AUTO) 6.3 % (3-13); PLATELET COUNT 212 10^3/uL (150-450); RED BLOOD COUNT 4.07 10^6/uL (3.72-5.28); RED CELL DISTRIBUTION WIDTH 12.8 % (11.5-14.0); SEGMENTED NEUTROPHILS % (AUTO) 77.5 % (42-78); TOTAL CELLS COUNTED % (AUTO) 100 %
[2019-11-14 05:52] LABS: ALBUMIN 3.3 g/dL (3.5-5.0); ALKALINE PHOSPHATASE 65 U/L (38-126); AMYLASE 52 U/L (30-110); ANION GAP 9 (5-19); ASPARTATE AMINO TRANSFERASE 16 U/L (14-36); BILIRUBIN,TOTAL 0.8 mg/dL (0.2-1.3); BLOOD UREA NITROGEN 3 mg/dL (7-20); CALCIUM 8.7 mg/dL (8.4-10.2); CARBON DIOXIDE 20 mmol/L (22-30); CHLORIDE 105 mmol/L (98-107); GLUCOSE 123 mg/dL (75-110); POTASSIUM 4.2 mmol/L (3.6-5.0); TOTAL PROTEIN 5.9 g/dL (6.3-8.2)
[2019-11-14] MEDS: PROMETHAZINE HCL 25 MG TABLET PO PRN ×2 (06:37→16:42)
--- NOTE | 2019-11-14 09:42 | PDOC PROGRESS REPORT ---
Subjective Progress Note for:: 11/14/19 Subjective:: says tube feeds make her nauseous. Reason For Visit: ACQUIRED ABSENCE OF STOMACH [PART OF] Physical Exam Vital Signs: Temp Pulse Resp BP Pulse Ox 97.9 F 116 H 16 126/81 H 100 11/13/19 23:45 11/13/19 23:45 11/13/19 23:45 11/13/19 23:45 11/13/19 23:45 Intake & Output 11/13/19 11/14/19 11/15/19 06:59 06:59 06:59 Intake Total 2905 4324 Output Total 200 Balance 2905 4124 Weight 64.3 kg 62.8 kg General appearance: PRESENT: no acute distress Head exam: PRESENT: normocephalic Eye exam: PRESENT: EOMI Ear exam: PRESENT: normal external ear exam Mouth exam: PRESENT: moist Throat exam: PRESENT: other Neck exam: PRESENT: full ROM Respiratory exam: PRESENT: clear to auscultation jose Cardiovascular exam: PRESENT: RRR Pulses: PRESENT: normal radial pulses, normal femoral pulses Vascular exam: PRESENT: normal capillary refill Breast: PRESENT: Normal GI/Abdominal exam: PRESENT: soft Rectal exam: PRESENT: deferred Extremities exam: PRESENT: full ROM Musculoskeletal exam: PRESENT: full ROM Neurological exam: PRESENT: alert, awake, oriented to person, oriented to place Psychiatric exam: PRESENT: appropriate affect Skin exam: PRESENT: dry Results Laboratory Results: 11/14/19 04:50 11/14/19 04:50 11/14/19 11/14/19 04:50 04:50 WBC 8.0 RBC 4.07 Hgb 12.0 Hct 34.7 L MCV 85 MCH 29.4 MCHC 34.5 RDW 12.8 Plt Count 212 Seg Neutrophils % 77.5 Sodium 133.9 L Potassium 4.2 Chloride 105 Carbon Dioxide 20 L Anion Gap 9 BUN 3 L Creatinine 0.47 L Est GFR ( Amer) > 60 Glucose 123 H Calcium 8.7 Total Bilirubin 0.8 AST 16 Alkaline Phosphatase 65 Total Protein 5.9 L Albumin 3.3 L Amylase 52 Lipase 292.5 11/08/19 11/08/19 11/09/19 20:44 20:44 02:57 Creatine Kinase 22 L CK-MB (CK-2) < 0.22 < 0.22 Troponin I < 0.012 < 0.012 11/09/19 11/09/19 11/09/19 02:57 08:34 08:34 Creatine Kinase 23 L < 20 L CK-MB (CK-2) < 0.22 Troponin I < 0.012 Assessment & Plan - Plan Summary Plan Summary: pt now states the j-tube feeds cause nauisea requests picc and tpn plan, appreciate psych input will order ugi and small bowel follow thru today picc line will start tpn. psych to see her later today.
[2019-11-14] MEDS: SUCRALFATE 1 GM TABLET PO SCH ×4 (10:05→22:59)
[2019-11-14] MEDS ORDERED: HYDROMORPHONE HCL INJ/PF 2 MG/ML AMPULE IV ONE (10:30)
[2019-11-14] MEDS ORDERED: NORMAL SALINE 10 ML SDV (AFTER EACH USE) IV PRN (11:00)
--- NOTE | 2019-11-14 11:09 | RADIOLOGY REPORT (SQ) ---
EXAM DESCRIPTION: PICC INSERTION IMAGES COMPLETED DATE/TIME: 11/14/2019 10:46 am REASON FOR STUDY: needs tpn Z90.3 ACQUIRED ABSENCE OF STOMACH PART OF R11.2 NAUSEA WITH VOMITING, UNSPECIFIED Z01.818 ENCOUNTER FOR OTHER PREPROCEDURAL EXAMINATION COMPARISON: None. FLUOROSCOPY TIME: 7 seconds 2 images saved to PACS. TECHNIQUE: Fluoroscopic and ultrasound guided PICC placement. LIMITATIONS: None. PROCEDURE: After written consent and assessment were obtained, the patient was brought into the fluo roscopy room and placed supine on the table. Ultrasound evaluation of potential access sites were per formed. After successfully identifying a patent right basilic vein, the right arm was prepped and antony ped in a sterile fashion along with the ultrasound probe. The entry site was anesthetized with 1% lid ocaine. A 21 gauge 7 cm needle was advanced through the skin and into the basilic vein under live ult rasound guidance. An ultrasound image was saved to PACS confirming access site. A .018 guide wire w as then inserted through the needle and into the venous system. The needle was then removed and an 11 blade scalpel was used to make a 1cm skin incision. A 5 fr peel-away sheath was advanced over the w ozzy and into the venous system. A measurement was then made using the existing wire and live fluorosc opic guidance. The wire was then removed and trimmed. The PICC was advanced through the peel-away she ath and into the venous system. The peel-away sheath was removed and the catheter was adhered to the patients arm with a stat lock. The catheter was then aspirated and flushed and a sterile bandage was placed over the access site. A fluoroscopic spot image was saved to PACS confirming the catheter tip within the superior vena cava. IMPRESSION: SUCCESSFUL PLACEMENT OF A 5 FR DUAL LUMEN 36 CM PICC IN THE RIGHT BASILIC VEIN. COMMENT: Patient medication list reviewed: Yes- Quality ID# [id number]:Eligible professional attests to doc umenting in the medical record they obtained, updated, or reviewed the patient's current medications. . Quality ID 145: Final reports for procedures using fluoroscopy that document radiation exposure alberto kenji, or exposure time and number of fluorographic images (if radiation exposure indices are not avail able) Quality ID #76: The patient was prepped and draped using maximum sterile barrier technique including cap, mask, sterile gown, sterile gloves, a large sterile sheet, hand hygiene, and 2% Chlorhexidine fo r cutaneous antisepsis. When ultrasound is used, sterile ultrasound techniques are followed requiring sterile gel and sterile probes. TECHNICAL DOCUMENTATION: JOB ID: [id number] 2010 [employer]- All Rights Reserved rev-12/10 Reading location - IP/workstation name: [email or web address]
--- NOTE | 2019-11-14 12:01 | PSYCHOLOGICAL NOTE ---
Psych Note - Psych Note Date seen by psych provider: 11/14/19 Time seen by psych provider: 11:35 Psych Note: The following collateral information was obtained from patient's , Reese ([phone]). reports that patient has never had an eating disorder. states "that is what the doctor [physician at [facility]] said." relies to believe that the physician "jump to that conclusion." reports patient is experiencing a significant period of depression as her mom and she had her stomach removed all in the last 6 months. Has been expressed a belief that patient's current presentation is a combination of mental and physical concerns. Has been expressed concern that patient is "too reliant on drugs themselves right now." expressed concern about the cycle of the pain medication being a factor in patient's nausea and vomiting. requested that patient be weaned off of the pain medication. also reports patient has a low tolerance for pain. Patient reports there has never been a concern for self harming behaviors to include behaviors aimed at garnering attention from hospital staff. reports patient has never been like this before and reported the nausea, vomiting, and pain only occurred post surgery.
--- NOTE | 2019-11-14 12:55 | RADIOLOGY REPORT (SQ) ---
EXAM DESCRIPTION: UGI W/ SINGLE CONTRAST IMAGES COMPLETED DATE/TIME: 11/14/2019 10:46 am REASON FOR STUDY: post gastrectomy Z90.3 ACQUIRED ABSENCE OF STOMACH PART OF R11.2 NAUSEA WITH VOM ITING, UNSPECIFIED Z01.818 ENCOUNTER FOR OTHER PREPROCEDURAL EXAMINATION TECHNIQUE: Under fluoroscopic guidance, patient ingested 60 cc of Gastrografin and water. Fluoroscop ic spot images and routine radiographic images acquired and stored on PACS. 12 MM BARIUM TABLET GIVEN: No. NUMBER OF IMAGES: 6 LIMITATIONS: Patient inability to tolerate p.o. COMPARISON: CT 10/24/2019 FLUOROSCOPY TIME: FLUORO TIME: 1.2 minutes 6 images saved to PACS. 1.2 minutes 6 images saved to PACS. FINDINGS: NEUROMUSCULAR COORDINATION OF SWALLOW: Normal. No aspiration. ESOPHAGEAL MOTILITY: Normal peristalsis. No esophageal spasm. ESOPHAGEAL MUCOSA: Normal mucosa without masses or ulceration. GASTRO-ESOPHAGEAL JUNCTION: Postsurgical changes from the total gastrectomy. STOMACH: Surgically absent. GASTRIC OUTLET: Not applicable. DUODENAL BULB: Not evaluated DUODENUM: Not evaluated PROXIMAL JEJUNUM: Postsurgical changes from the total gastrectomy. Contrast through the traverses th e anastomosis without evidence of obstruction. NON-GI TRACT STRUCTURES: No significant finding. OTHER: No other significant finding. IMPRESSION: Postsurgical changes from the total gastrectomy. Contrast freely traverses the anastomo sis without evidence of mechanical obstruction. COMMENT: Quality ID 145: Final reports for procedures using fluoroscopy that document radiation exp osure indices, or exposure time and number of fluorographic images (if radiation exposure indices are not available) TECHNICAL DOCUMENTATION: JOB ID: [id number] 2010 [employer]- All Rights Reserved Reading location - IP/workstation name: [email or web address]
--- NOTE | 2019-11-14 13:44 | PDOC PROGRESS REPORT ---
Subjective Progress Note for:: 11/14/19 Subjective:: 24 year old female who was admitted by Dr. Reza, following a prophylactic total gastrectomy 2 months ago, with nausea and vomiting accompanied by moderate epigastric abdominal pain and associated with anorexia. She denies other associated or accompanying signs and symptoms. She admits prior similar episodes. She has not identified any aggravating or ameliorating factors for her nausea and vomiting. She was noted to have a sinus tachycardia of ~120 bpm on her initial EKG and the hospitalist service was consulted for evaluation. Her initial lab work was unremarkable with the exception of a minimally elevated lipase, a mild hyperglycemia and an accompanying minimal hyponatremia. 11/14/[id number]-tvgt-old female with history of prophylactic total gastrectomy 2 months ago admitted with nausea and vomiting in association with epigastric pain and anorexia. She has a G-tube but the patient is complaining of unable to tolerate the G-tube feedings. She could have a PICC line and plan is to start her on TPN. Dr. Reza is the admitting physician be doing the consultation. Patient was tried on different antiemetic medications nothing is working so far. At the time of my examination patient is complaining of abdominal discomfort requesting antiemetics. Reason For Visit: ACQUIRED ABSENCE OF STOMACH [PART OF] Physical Exam Vital Signs: Temp Pulse Resp BP Pulse Ox 97.9 F 116 H 16 126/81 H 100 11/13/19 23:45 11/13/19 23:45 11/13/19 23:45 11/13/19 23:45 11/13/19 23:45 Intake & Output 11/13/19 11/14/19 11/15/19 06:59 06:59 06:59 Intake Total 2905 4324 1000 Output Total 200 Balance 2905 4124 1000 Weight 64.3 kg 62.8 kg General appearance: PRESENT: no acute distress, cooperative, well-developed, other Head exam: PRESENT: atraumatic Eye exam: PRESENT: PERRLA Mouth exam: PRESENT: neck supple Neck exam: ABSENT: carotid bruit, JVD, lymphadenopathy, thyromegaly Respiratory exam: PRESENT: decreased breath sounds Cardiovascular exam: PRESENT: RRR. ABSENT: diastolic murmur, rubs, systolic murmur Pulses: PRESENT: normal dorsalis pedis pul Rectal exam: PRESENT: deferred Extremities exam: PRESENT: full ROM. ABSENT: calf tenderness, clubbing, pedal edema Neurological exam: PRESENT: alert, awake, oriented to person, oriented to place, oriented to time, oriented to situation, CN II-XII grossly intact. ABSENT: motor sensory deficit Psychiatric exam: PRESENT: appropriate affect, normal mood. ABSENT: homicidal ideation, suicidal ideation Results Laboratory Results: 11/14/19 04:50 11/14/19 04:50 11/14/19 11/14/19 04:50 04:50 WBC 8.0 RBC 4.07 Hgb 12.0 Hct 34.7 L MCV 85 MCH 29.4 MCHC 34.5 RDW 12.8 Plt Count 212 Seg Neutrophils % 77.5 Sodium 133.9 L Potassium 4.2 Chloride 105 Carbon Dioxide 20 L Anion Gap 9 BUN 3 L Creatinine 0.47 L Est GFR ( Amer) > 60 Glucose 123 H Calcium 8.7 Total Bilirubin 0.8 AST 16 Alkaline Phosphatase 65 Total Protein 5.9 L Albumin 3.3 L Amylase 52 Lipase 292.5 11/08/19 11/08/19 11/09/19 20:44 20:44 02:57 Creatine Kinase 22 L CK-MB (CK-2) < 0.22 < 0.22 Troponin I < 0.012 < 0.012 11/09/19 11/09/19 11/09/19 02:57 08:34 08:34 Creatine Kinase 23 L < 20 L CK-MB (CK-2) < 0.22 Troponin I < 0.012 Impressions: PICC Line Insertion 11/14/19 00:00 IMPRESSION: SUCCESSFUL PLACEMENT OF A 5 FR DUAL LUMEN 36 CM PICC IN THE RIGHT BASILIC VEIN. Upper GI Series-Limited 11/14/19 00:00 IMPRESSION: Postsurgical changes from the total gastrectomy. Contrast freely traverses the anastomosis without evidence of mechanical obstruction. Assessment and Plan - Diagnosis (1) Anxiety Is this a current diagnosis for this admission?: Yes Plan: 11/14/2019-patient has a chronic anxiety disorder presently on lorazepam 1 mg IV every 12 hours as needed. At the time of my examination patient denies any anxiety depression. (2) Hyponatremia Is this a current diagnosis for this admission?: Yes Plan: 11/09/2019 Mild hyponatremia present on admission. This is resolved. Will monitor electrolytes. (3) Nausea and vomiting Qualifiers: Vomiting Intractability: intractable Is this a current diagnosis for this admission?: Yes Plan: 11/09/2019 The patient is status post gastrectomy for prophylaxis against malignancy. She has been experiencing significant nausea and vomiting. I believe this is causing some of her epigastric discomfort from esophagitis and musculoskeletal strain. She is on metoclopramide and does take Carafate at home. I will resume Carafate and add famotidine. 11/14/2019-patient is still complaining of nausea and large bowel medications. Patient was tried on multiple antiemetics without any success. Dr. Reza tried to feed her with a J-tube and the patient is complaining of increasing n ausea with a J-tube. She has a PICC line today to start on TPN. (5) Drug-seeking behavior Is this a current diagnosis for this admission?: Yes - Plan Summary Summary: The patient's sinus tachycardia observed on the EKG at admission, has subsequently resolved and at the time of this consultation she appears to be in a normal sinus rhythm. EKG does suggest some nonspecific T wave changes and therefore serial cardiac enzymes, a magnesium level and a thyroid profile will be obtained. Patient will remain on telemetry and we will treat her tachycardia should it recur with IV metoprolol 5 mg every 4 hours as needed for sustained heart rate greater than 110. Serial lipase and amylase determinations will be obtained. Patient will continue on hydromorphone 2 mg IV every 4 hours as needed for pain and Ativan 1 mg IV every 4 hours as needed for anxiety or restlessness. CBCs, metabolic profiles and magnesium levels will be obtained as appropriate. Patient will be followed by the hospitalist service as long as necessary. 11/10/2019 Patient's vital signs are stable temperature 98.3 pulse 90 blood pressure 121/86 Admission weight is recorded at 61.5 kg today's weight is 66.8 Patient currently on clear liquids Labs today reveal a normal white count, normal TSH, troponin and CK are negative Lipase is up slightly from admission from 353 up to 380 Hemoglobin A1c is normal 4.7 Patient is potentially scheduled for surgery today for an enterostomy Will follow-up postop. Patient is asymptomatic concerning tachycardia. Patient's heart rate has been under 100 since admission 11/11/2019 Patient remains afebrile temperature 98.1 Heart rate this morning is 102, but has been as high as 131 last night around midnight Looks like patient's normal heart rate, at least since admission is around 90 This morning I asked her if she is ever been on any medicine for depression she says that she has and she currently is on that medicine. Only medicine I see at home was Ativan. Patient seems to need something like an SSRI and I am going to speak with her about her past psychiatric history, as I feel that this is a part of her current medical problems. The way that she is dealing with her pain, and medications. Certainly patient has no obvious pathology that would account for her tachycardia, at this time. Patient seems very anxious that we are going to stop her pain medicine and medicine for nausea and vomiting. Patient's labs appear stable 11/12/2019 Patient is once again become more tachycardic since yesterday afternoon with a rate anywhere from 102 to 129. This appears to be sinus tach. She is supposed to be getting metoprolol IV every 4 hours for her tachycardia, but has not received any. I have called patient's nurse and informed her to give the metoprolol for her tachycardia. I truly think that her tachycardia is based on her anxiety. Temperature is up slightly today to 99.5. This is about a degree higher than her normal temperature Yesterday her white count had gone up to 11,400 and I am going to repeat her blood work today She was getting D5 half-normal saline at 150 an hour. I am going to continue this. Patient continues to be nauseated and in fact vomited just recently. I have ordered a scopolamine patch for this nausea in addition to what she is already taking. According to nursing she is fixated on her medications, what she is getting, when she is getting, how much she is getting. 11/13/2019 1430 hrs. once 0 700 this morning patient has had 2 episodes of vomiting, 1 resulting in 60 cc of green fluid the other 70 cc of green fluid. Patient continues to be slightly tachycardic averaging around 110. I am going to add metoprolol 2.5 mg IV every 6 hours. If this seems to lower her heart rate, would switch to a low dose p.o. every 12 hours. Pressure however stable 120/80 Normal white count We will repeat labs tomorrow to include a protein and albumin, amylase lipase and liver functions Patient's antiemetics have been changed and switched multiple times to try to find the right combination. Seem to be somewhat better today than yesterday less vomiting. Psychiatry consult is pending for opinion of the situation.
--- NOTE | 2019-11-14 15:24 | RADIOLOGY REPORT (SQ) ---
EXAM DESCRIPTION: SMALL BOWEL POST UGI IMAGES COMPLETED DATE/TIME: 11/14/2019 2:54 pm REASON FOR STUDY: post gastrectomy Z90.3 ACQUIRED ABSENCE OF STOMACH PART OF R11.2 NAUSEA WITH VOM ITING, UNSPECIFIED Z01.818 ENCOUNTER FOR OTHER PREPROCEDURAL EXAMINATION COMPARISON: None. TECHNIQUE: Under fluoroscopic guidance, patient ingested water soluble contrast. Fluoroscopic spot images and routine radiographic images acquired and stored on PACS. Following evaluation of esophagus and stomach, additional barium administered with serial delayed abd ominal radiographs until colonic identification. Fluoroscopic images recorded of the terminal ileum. 12 MM BARIUM TABLET GIVEN: No. FLUOROSCOPY TIME: 8 images saved to PACS. LIMITATIONS: None. FINDINGS: ESOPHAGEAL MUCOSA: Normal mucosa without masses or ulceration. STOMACH: Status post gastric resection. GASTRIC OUTLET: Not applicable DUODENAL BULB: Not imaged. DUODENUM: Not imaged. JEJUNUM: Postsurgical changes from gastric resection. There is some dilated proximal jejunal loops m easuring up to 3.8 cm. Contrast traverses distal to the area of small bowel dilation. ILEUM: Limited evaluation secondary to dilute contrast. Normal mucosal pattern. No dilatation, segm entation, strictures or masses. TERMINAL ILEUM AND ILEO-CECAL VALVE: Limited evaluation secondary to dilute contrast. Normal mucosal pattern without stricture. PROXIMAL COLON: Limited evaluation secondary to dilute contrast. Contrast reaches the level of the c olon by 3 hour radiograph. NON-GI TRACT STRUCTURES: Postsurgical changes from gastric resection. Jejunostomy tube cold over sto mach with distal tip overlying left paramedian pelvis. OTHER: Tube Former Operator film demonstrates some residual contrast and moderate fecal burden within the rectal vau lt. IMPRESSION: 1. Postsurgical changes from gastric resection. Dilated proximal jejunal loops measuri ng up to 3.8 cm. Contrast traverses distal to the small bowel dilation and reaches the colon by the 3 hour radiograph. 2. The jejunostomy tube coiled over left hemiabdomen. Findings discussed with Dr. Reza on 11/14/2019. COMMENT: Quality ID 145: Final reports for procedures using fluoroscopy that document radiation exp osure indices, or exposure time and number of fluorographic images (if radiation exposure indices are not available) TECHNICAL DOCUMENTATION: JOB ID: [id number] 2010 [employer]- All Rights Reserved Reading location - IP/workstation name: [email or web address]
[2019-11-14] MEDS: TRAMADOL HCL 50 MG TABLET PO PRN (16:42)
[2019-11-14] MEDS: ZOLPIDEM TARTRATE 5 MG TABLET PO PRN (22:47)
[2019-11-14] MEDS: NORMAL SALINE 10 ML SDV (SCHEDULED) IV SCH (22:47)
[2019-11-15] MEDS: METOPROLOL TARTRATE PF/INJ 5 MG/5 ML SDV IV SCH ×4 (00:28→18:05)
[2019-11-15] MEDS: PROMETHAZINE HCL 25 MG TABLET PO PRN ×2 (01:07→10:34)
[2019-11-15] MEDS: TRAMADOL HCL 50 MG TABLET PO PRN ×2 (01:07→18:22)
[2019-11-15] MEDS: METOCLOPRAMIDE HCL INJ/PF 10 MG/2 ML SDV IV SCH ×5 (01:07→23:10)
[2019-11-15] MEDS: POTASSI CL 20 MEQ/D5-1/2NS 1L 1000 ML IV PRN ×4 (01:08→23:09)
[2019-11-15] MEDS: HYDROMORPHONE HCL INJ/PF 2 MG/ML AMPULE IV PRN ×5 (03:09→23:09)
[2019-11-15] MEDS: SUCRALFATE 1 GM TABLET PO SCH ×5 (08:15→21:30)
[2019-11-15] MEDS ORDERED: DEXTROSE 50%-WATER SYRINGE 12.5 GM/25 ML DOSE IV PRN (08:30)
[2019-11-15] MEDS ORDERED: DEXTROSE 50%-WATER SYRINGE 25 GM/50 ML DOSE IV PRN (08:30)
[2019-11-15] MEDS ORDERED: DEXTROSE 10%-WATER 1,000 ML IV PRN (08:30)
[2019-11-15] MEDS ORDERED: DEXTROSE 40% GEL 15 GM TUBE X 2 PO PRN (08:30)
[2019-11-15] MEDS ORDERED: GLUCAGON,HUMAN RECOMB 1 MG INJ IM PRN (08:30)
[2019-11-15] MEDS ORDERED: DEXTROSE 40% GEL 15 GM TUBE PO PRN (08:30)
--- NOTE | 2019-11-15 09:10 | PDOC PROGRESS REPORT ---
Subjective Progress Note for:: 11/15/19 Subjective:: 24 year old female who was admitted by Dr. Reza, following a prophylactic total gastrectomy 2 months ago, with nausea and vomiting accompanied by moderate epigastric abdominal pain and associated with anorexia. She denies other associated or accompanying signs and symptoms. She admits prior similar episodes. She has not identified any aggravating or ameliorating factors for her nausea and vomiting. She was noted to have a sinus tachycardia of ~120 bpm on her initial EKG and the hospitalist service was consulted for evaluation. Her initial lab work was unremarkable with the exception of a minimally elevated lipase, a mild hyperglycemia and an accompanying minimal hyponatremia. 11/14/[id number]-mrev-old female with history of prophylactic total gastrectomy 2 months ago admitted with nausea and vomiting in association with epigastric pain and anorexia. She has a G-tube but the patient is complaining of unable to tolerate the G-tube feedings. She could have a PICC line and plan is to start her on TPN. Dr. Reza is the admitting physician be doing the consultation. Patient was tried on different antiemetic medications nothing is working so far. At the time of my examination patient is complaining of abdominal discomfort requesting antiemetics. 11/15/2019-no acute events in the last 24 hours. Patient has a PICC line plan is to start her on TPN today. Patient denies any complaints comfortable in the bed communicating well. Reason For Visit: ACQUIRED ABSENCE OF STOMACH [PART OF] Physical Exam Vital Signs: Temp Pulse Resp BP Pulse Ox 97.8 F 77 17 107/63 95 11/15/19 08:00 11/15/19 08:00 11/15/19 08:00 11/15/19 08:00 11/15/19 08:00 Intake & Output 11/14/19 11/15/19 11/16/19 06:59 06:59 06:59 Intake Total 4324 3650 1000 Output Total 200 400 Balance 4124 3250 1000 Weight 62.8 kg 62 kg General appearance: PRESENT: no acute distress, well-developed Head exam: PRESENT: atraumatic Eye exam: PRESENT: PERRLA Mouth exam: PRESENT: moist, neck supple, tongue midline Neck exam: ABSENT: carotid bruit, JVD, lymphadenopathy, thyromegaly Respiratory exam: PRESENT: clear to auscultation jose. ABSENT: rales, rhonchi, wheezes Cardiovascular exam: PRESENT: RRR. ABSENT: diastolic murmur, rubs, systolic murmur GI/Abdominal exam: PRESENT: other - Previous surgical scar in the midline, J- tube in place. Bowel sounds sluggish. Rectal exam: PRESENT: deferred Extremities exam: PRESENT: full ROM. ABSENT: calf tenderness, clubbing, pedal edema Neurological exam: PRESENT: alert, awake, oriented to person, oriented to place, oriented to time, oriented to situation, CN II-XII grossly intact. ABSENT: motor sensory deficit Psychiatric exam: PRESENT: appropriate affect, normal mood. ABSENT: homicidal i deation, suicidal ideation Results Laboratory Results: 11/14/19 04:50 11/14/19 04:50 11/08/19 11/08/19 11/09/19 20:44 20:44 02:57 Creatine Kinase 22 L CK-MB (CK-2) < 0.22 < 0.22 Troponin I < 0.012 < 0.012 11/09/19 11/09/19 11/09/19 02:57 08:34 08:34 Creatine Kinase 23 L < 20 L CK-MB (CK-2) < 0.22 Troponin I < 0.012 Impressions: PICC Line Insertion 11/14/19 00:00 IMPRESSION: SUCCESSFUL PLACEMENT OF A 5 FR DUAL LUMEN 36 CM PICC IN THE RIGHT BASILIC VEIN. Upper GI Series-Limited 11/14/19 00:00 IMPRESSION: Postsurgical changes from the total gastrectomy. Contrast freely traverses the anastomosis without evidence of mechanical obstruction. Upper GI and Small Bowel X-Ray 11/14/19 00:00 IMPRESSION: 1. Postsurgical changes from gastric resection. Dilated proximal jejunal loops measuring up to 3.8 cm. Contrast traverses distal to the small bowel dilation and reaches the colon by the 3 hour radiograph. 2. The jejunostomy tube coiled over left hemiabdomen. Findings discussed with Dr. Reza on 11/14/2019. Assessment and Plan - Diagnosis (1) Anxiety Is this a current diagnosis for this admission?: Yes Plan: 11/14/2019-patient has a chronic anxiety disorder presently on lorazepam 1 mg IV every 12 hours as needed. At the time of my examination patient denies any anxiety depression. 11/15/19-patient is comfortably in the bed communicating well. Denies any anxiety depression.- (2) Hyponatremia Is this a current diagnosis for this admission?: Yes Plan: 11/09/2019 Mild hyponatremia present on admission. This is resolved. Will monitor electrolytes. 11/15/2019-latest serum sodium is 134. (3) Nausea and vomiting Qualifiers: Vomiting Intractability: intractable Is this a current diagnosis for this admission?: Yes Plan: 11/09/2019 The patient is status post gastrectomy for prophylaxis against malignancy. She has been experiencing significant nausea and vomiting. I believe this is causing some of her epigastric discomfort from esophagitis and musculoskeletal strain. She is on metoclopramide and does take Carafate at home. I will resume Carafate and add famotidine. 11/14/2019-patient is still complaining of nausea and large bowel medications. Patient was tried on multiple antiemetics without any success. Dr. Reza tried to feed her with a J-tube and the patient is complaining of increasing nausea with a J-tube. She has a PICC line today to start on TPN. 11/15/19-patient is still complaining of nausea. She has a PICC line plan is to start on TPN today. Patient also has a J-tube. (4) Status post partial gastrectomy Is this a current diagnosis for this admission?: No (5) Drug-seeking behavior Is this a current diagnosis for this admission?: Yes - Plan Summary Summary: The patient's sinus tachycardia observed on the EKG at admission, has subsequently resolved and at the time of this consultation she appears to be in a normal sinus rhythm. EKG does suggest some nonspecific T wave changes and therefore serial cardiac enzymes, a magnesium level and a thyroid profile will b e obtained. Patient will remain on telemetry and we will treat her tachycardia should it recur with IV metoprolol 5 mg every 4 hours as needed for sustained heart rate greater than 110. Serial lipase and amylase determinations will be obtained. Patient will continue on hydromorphone 2 mg IV every 4 hours as needed for pain and Ativan 1 mg IV every 4 hours as needed for anxiety or restlessness. CBCs, metabolic profiles and magnesium levels will be obtained as appropriate. Patient will be followed by the hospitalist service as long as necessary. 11/10/2019 Patient's vital signs are stable temperature 98.3 pulse 90 blood pressure 121/86 Admission weight is recorded at 61.5 kg today's weight is 66.8 Patient currently on clear liquids Labs today reveal a normal white count, normal TSH, troponin and CK are negative Lipase is up slightly from admission from 353 up to 380 Hemoglobin A1c is normal 4.7 Patient is potentially scheduled for surgery today for an enterostomy Will follow-up postop. Patient is asymptomatic concerning tachycardia. Patient's heart rate has been under 100 since admission 11/11/2019 Patient remains afebrile temperature 98.1 Heart rate this morning is 102, but has been as high as 131 last night around midnight Looks like patient's normal heart rate, at least since admission is around 90 This morning I asked her if she is ever been on any medicine for depression she says that she has and she currently is on that medicine. Only medicine I see at home was Ativan. Patient seems to need something like an SSRI and I am going to speak with her about her past psychiatric history, as I feel that this is a part of her current medical problems. The way that she is dealing with her pain, and medications. Certainly patient has no obvious pathology that would account for her tachycardia, at this time. Patient seems very anxious that we are going to stop her pain medicine and medicine for nausea and vomiting. Patient's labs appear stable 11/12/2019 Patient is once again become more tachycardic since yesterday afternoon with a rate anywhere from 102 to 129. This appears to be sinus tach. She is supposed to be getting metoprolol IV every 4 hours for her tachycardia, but has not received any. I have called patient's nurse and informed her to give the metoprolol for her tachycardia. I truly think that her tachycardia is based on her anxiety. Temperature is up slightly today to 99.5. This is about a degree higher than her normal temperature Yesterday her white count had gone up to 11,400 and I am going to repeat her blood work today She was getting D5 half-normal saline at 150 an hour. I am going to continue this. Patient continues to be nauseated and in fact vomited just recently. I have ordered a scopolamine patch for this nausea in addition to what she is already taking. According to nursing she is fixated on her medications, what she is getting, when she is getting, how much she is getting. 11/13/2019 1430 hrs. once 0 700 this morning patient has had 2 episodes of vomiting, 1 resulting in 60 cc of green fluid the other 70 cc of green fluid. Patient continues to be slightly tachycardic averaging around 110. I am going to add metoprolol 2.5 mg IV every 6 hours. If this seems to lower her heart rate, would switch to a low dose p.o. every 12 hours. Pressure however stable 120/80 Normal white count We will repeat labs tomorrow to include a protein and albumin, amylase lipase and liver functions Patient's antiemetics have been changed and switched multiple times to try to find the right combination. Seem to be somewhat better today than yesterday less vomiting. Psychiatry consult is pending for opinion of the situation.
[2019-11-15] MEDS: NORMAL SALINE 10 ML SDV (SCHEDULED) IV SCH ×2 (10:00→21:31)
[2019-11-15] MEDS: LORAZEPAM INJ 2 MG/1 ML VIAL IV PRN ×2 (10:38→23:09)
--- NOTE | 2019-11-15 11:42 | PDOC PROGRESS REPORT ---
Subjective Progress Note for:: 11/15/19 Subjective:: feels a bit better today ugi/sb series neg for obstruction Reason For Visit: ACQUIRED ABSENCE OF STOMACH [PART OF] Physical Exam Vital Signs: Temp Pulse Resp BP Pulse Ox 97.8 F 77 17 107/63 95 11/15/19 08:00 11/15/19 08:00 11/15/19 08:00 11/15/19 08:00 11/15/19 08:00 Intake & Output 11/14/19 11/15/19 11/16/19 06:59 06:59 06:59 Intake Total 4324 3650 1000 Output Total 200 400 Balance 4124 3250 1000 Weight 62.8 kg 62 kg General appearance: PRESENT: no acute distress Head exam: PRESENT: normocephalic Eye exam: PRESENT: EOMI Mouth exam: PRESENT: moist Neck exam: PRESENT: full ROM Respiratory exam: PRESENT: clear to auscultation jose Cardiovascular exam: PRESENT: RRR Pulses: PRESENT: normal carotid pulses, normal femoral pulses Vascular exam: PRESENT: normal capillary refill GI/Abdominal exam: PRESENT: soft Rectal exam: PRESENT: deferred Extremities exam: PRESENT: full ROM Musculoskeletal exam: PRESENT: full ROM Neurological exam: PRESENT: alert, altered, awake, oriented to person Psychiatric exam: PRESENT: appropriate affect Skin exam: PRESENT: dry Results Laboratory Results: 11/14/19 04:50 11/14/19 04:50 11/08/19 11/08/19 11/09/19 20:44 20:44 02:57 Creatine Kinase 22 L CK-MB (CK-2) < 0.22 < 0.22 Troponin I < 0.012 < 0.012 11/09/19 11/09/19 11/09/19 02:57 08:34 08:34 Creatine Kinase 23 L < 20 L CK-MB (CK-2) < 0.22 Troponin I < 0.012 Impressions: PICC Line Insertion 11/14/19 00:00 IMPRESSION: SUCCESSFUL PLACEMENT OF A 5 FR DUAL LUMEN 36 CM PICC IN THE RIGHT BASILIC VEIN. Upper GI Series-Limited 11/14/19 00:00 IMPRESSION: Postsurgical changes from the total gastrectomy. Contrast freely traverses the anastomosis without evidence of mechanical obstruction. Upper GI and Small Bowel X-Ray 11/14/19 00:00 IMPRESSION: 1. Postsurgical changes from gastric resection. Dilated proximal jejunal loops measuring up to 3.8 cm. Contrast traverses distal to the small bowel dilation and reaches the colon by the 3 hour radiograph. 2. The jejunostomy tube coiled over left hemiabdomen. Findings discussed with Dr. Reza on 11/14/2019. Assessment & Plan - Plan Summary Plan Summary: pt doing better today wants darby try full liquids will start tpn today discharge planning for home tpn.
[2019-11-15] MEDS: SCOPOLAMINE HYDROBROMIDE 1.5 MG PATCH.TD72 TD SCH (18:03)
[2019-11-15] MEDS: AMINO ACIDS 5 %/DEXTROSE 20 % 1,000 ML IV PRN (18:29)
--- NOTE | 2019-11-15 20:07 | PSYCHOLOGICAL NOTE ---
Psych Note - Psych Note Date seen by psych provider: 11/15/19 Time seen by psych provider: 16:05 Psych Note: Reason for Consult: Depression Check in conducted with patient: Patient reports she is currently in pain and apologizing to clinician for her current presentation. Patient states she had her surgery for her stomach September 18, 2019 and she was eating solid foods prior to being admitted to the hospital; "not a lot of solid food but I was eating a little." She discloses she has a welfare manager (first name Inessa with [employer]) that she has been seeing starting before her surgery and confirms she is planing to continue seeing. Patient is currently overall calm but does lean forward and "hug" her stomach. She reports she has no thoughts of wanting to harm herself. Medication recommendations per [facility]'s contracted psychiatrist Dr. Simone BENDER are as follows Please start zyprexa zydis (ODT) 2.5mg twice daily Please discontinue Ativan please use Thorazine 25mg IM every 3-4 hours as needed for nausea Impression\\plan: Patient is encouraged to engage in a stepped behavioral modification plan to address her eating. She should be encouraged to slowly increase her eating and be monitored by her welfare manager. For example- eating a fourth of a bagel a day at the rate of 2 bites every hour (each bite chewing 25 times before swallowing) until gone. This would be done for 5 days then increase the amount of food to half the bagel with same steps (2 bites, chew 25 times every hour until gone). every 5 days the amount of food should be increased until appropriate amount of solid food is consumed. It is also noted the patient should attempt to be distracted during these times of eating so she is not focused on the food and swallowing. Clinician notes the bagel in example, is just an example- it would be ideal for a welfare manager to identify the appropriate solid food item to improve nutrition and is appropriate for her current status in post op. There is concern the patient is experiencing some complex psychosomatic symptoms in addition to depression and grief in connection to her long term care social worker care of her mother that . Her expressed concern the patient is over using pain medications; it is noted the patient has been requesting her medications frequently; to include Ativan for her nausea. It is recommended for the patient to reduce and discontinue if medically appropriate any addictive pain medications. A recommendation for alternative nausea control with Thorzaine has been provided. The patient will need to have therapeutic services to appropriately address these concerns. Medication recommendations have been provided. Dr. Saavedra was consulted to care management of this patient; attending physicians in agreement with recommendations and disposition.
[2019-11-15] MEDS: ZOLPIDEM TARTRATE 5 MG TABLET PO PRN (23:22)
[2019-11-16] MEDS: INSULIN REG, HUMAN 100 UNIT/ML 3 ML VIAL (PYX) SUBCUT SCH ×5 (00:38→18:30)
[2019-11-16] MEDS: METOPROLOL TARTRATE PF/INJ 5 MG/5 ML SDV IV SCH ×4 (00:43→17:19)
[2019-11-16] MEDS: TRAMADOL HCL 50 MG TABLET PO PRN (03:48)
[2019-11-16] MEDS: PROMETHAZINE HCL 25 MG TABLET PO PRN ×2 (03:50→11:49)
[2019-11-16] MEDS: HYDROMORPHONE HCL INJ/PF 2 MG/ML AMPULE IV PRN ×3 (05:42→17:56)
[2019-11-16] MEDS: METOCLOPRAMIDE HCL INJ/PF 10 MG/2 ML SDV IV SCH ×3 (05:43→17:19)
[2019-11-16] MEDS: SUCRALFATE 1 GM TABLET PO SCH ×4 (07:43→21:22)
--- NOTE | 2019-11-16 08:31 | PDOC PROGRESS REPORT ---
Subjective Progress Note for:: 11/16/19 Subjective:: 24 year old female who was admitted by Dr. Reza, following a prophylactic total gastrectomy 2 months ago, with nausea and vomiting accompanied by moderate epigastric abdominal pain and associated with anorexia. She denies other associated or accompanying signs and symptoms. She admits prior similar episodes. She has not identified any aggravating or ameliorating factors for her nausea and vomiting. She was noted to have a sinus tachycardia of ~120 bpm on her initial EKG and the hospitalist service was consulted for evaluation. Her initial lab work was unremarkable with the exception of a minimally elevated lipase, a mild hyperglycemia and an accompanying minimal hyponatremia. 11/14/[id number]-[id number]-old female with history of prophylactic total gastrectomy 2 months ago admitted with nausea and vomiting in association with epigastric pain and anorexia. She has a G-tube but the patient is complaining of unable to tolerate the G-tube feedings. She could have a PICC line and plan is to start her on TPN. Dr. Reza is the admitting physician be doing the consultation. Patient was tried on different antiemetic medications nothing is working so far. At the time of my examination patient is complaining of abdominal discomfort requesting antiemetics. 11/15/2019-no acute events in the last 24 hours. Patient has a PICC line plan is to start her on TPN today. Patient denies any complaints comfortable in the bed communicating well. 11/16/2019-patient has a PICC line, social services analyst making arrangements for the patient to get outpatient TPN. Reason For Visit: ACQUIRED ABSENCE OF STOMACH [PART OF] Physical Exam Vital Signs: Temp Pulse Resp BP Pulse Ox 98.1 F 87 16 112/68 98 11/16/19 07:26 11/16/19 07:26 11/16/19 07:26 11/16/19 07:26 11/16/19 07:26 Intake & Output 11/15/19 11/16/19 11/17/19 06:59 06:59 06:59 Intake Total 3650 3710 1000 Output Total 400 30 Balance 3250 3680 1000 Weight 62 kg 62.1 kg General appearance: PRESENT: no acute distress, well-developed Head exam: PRESENT: atraumatic Eye exam: PRESENT: PERRLA Mouth exam: PRESENT: moist, tongue midline Teeth exam: PRESENT: poor dentation Neck exam: ABSENT: carotid bruit, JVD, lymphadenopathy, thyromegaly Respiratory exam: PRESENT: clear to auscultation jose. ABSENT: rales, rhonchi, wheezes Cardiovascular exam: PRESENT: RRR. ABSENT: diastolic murmur, rubs, systolic murmur GI/Abdominal exam: PRESENT: normal bowel sounds, soft. ABSENT: distended, guarding, mass, organolmegaly, rebound, tenderness Rectal exam: PRESENT: deferred Extremities exam: PRESENT: full ROM. ABSENT: calf tenderness, clubbing, pedal edema Neurological exam: PRESENT: alert, awake, oriented to person, oriented to place, oriented to time, oriented to situation, CN II-XII grossly intact. ABSENT: motor sensory deficit Psychiatric exam: PRESENT: appropriate affect, normal mood. ABSENT: homicidal ideation, suicidal ideation Results Laboratory Results: 11/14/19 04:50 11/14/19 04:50 11/08/19 11/08/19 11/09/19 20:44 20:44 02:57 Creatine Kinase 22 L CK-MB (CK-2) < 0.22 < 0.22 Troponin I < 0.012 < 0.012 11/09/19 11/09/19 11/09/19 02:57 08:34 08:34 Creatine Kinase 23 L < 20 L CK-MB (CK-2) < 0.22 Troponin I < 0.012 Impressions: PICC Line Insertion 11/14/19 00:00 IMPRESSION: SUCCESSFUL PLACEMENT OF A 5 FR DUAL LUMEN 36 CM PICC IN THE RIGHT BASILIC VEIN. Upper GI Series-Limited 11/14/19 00:00 IMPRESSION: Postsurgical changes from the total gastrectomy. Contrast freely traverses the anastomosis without evidence of mechanical obstruction. Upper GI and Small Bowel X-Ray 11/14/19 00:00 IMPRESSION: 1. Postsurgical changes from gastric resection. Dilated proximal jejunal loops measuring up to 3.8 cm. Contrast traverses distal to the small bowel dilation and reaches the colon by the 3 hour radiograph. 2. The jejunostomy tube coiled over left hemiabdomen. Findings discussed with Dr. Reza on 11/14/2019. Assessment and Plan - Diagnosis (1) Anxiety Is this a current diagnosis for this admission?: Yes Plan: 11/14/2019-patient has a chronic anxiety disorder presently on lorazepam 1 mg IV every 12 hours as needed. At the time of my examination patient denies any anxiety depression. 11/15/19-patient is comfortably in the bed communicating well. Denies any anxiety depression.- (2) Hyponatremia Is this a current diagnosis for this admission?: Yes Plan: 11/09/2019 Mild hyponatremia present on admission. This is resolved. Will monitor electrolytes. 11/15/2019-latest serum sodium is 134. (3) Nausea and vomiting Qualifiers: Vomiting Intractability: intractable Is this a current diagnosis for this admission?: Yes Plan: 11/09/2019 The patient is status post gastrectomy for prophylaxis against malignancy. She has been experiencing significant nausea and vomiting. I believe this is causing some of her epigastric discomfort from esophagitis and musculoskeletal strain. She is on metoclopramide and does take Carafate at home. I will resume Carafate and add famotidine. 11/14/2019-patient is still complaining of nausea and large bowel medications. Patient was tried on multiple antiemetics without any success. Dr. Reza tried to feed her with a J-tube and the patient is complaining of increasing nausea with a J-tube. She has a PICC line today to start on TPN. 11/15/19-patient is still complaining of nausea. She has a PICC line plan is to start on TPN today. Patient also has a J-tube. 11/16/19-patient denies any nausea vomiting this morning. Still has the J-tube. Patient has a PICC line and the plan is to discharge her home with TPN. (4) Status post partial gastrectomy Is this a current diagnosis for this admission?: No (5) Drug-seeking behavior Is this a current diagnosis for this admission?: Yes - Plan Summary Summary: The patient's sinus tachycardia observed on the EKG at admission, has subsequently resolved and at the time of this consultation she appears to be in a normal sinus rhythm. EKG does suggest some nonspecific T wave changes and therefore serial cardiac enzymes, a magnesium level and a thyroid profile will be obtained. Patient will remain on telemetry and we will treat her tachycardia should it recur with IV metoprolol 5 mg every 4 hours as needed for sustained heart rate greater than 110. Serial lipase and amylase determinations will be obtained. Patient will continue on hydromorphone 2 mg IV every 4 hours as needed for pain and Ativan 1 mg IV every 4 hours as needed for anxiety or restlessness. CBCs, metabolic profiles and magnesium levels will be obtained as appropriate. Patient will be followed by the hospitalist service as long as necessary. 11/10/2019 Patient's vital signs are stable temperature 98.3 pulse 90 blood pressure 121/86 Admission weight is recorded at 61.5 kg today's weight is 66.8 Patient currently on clear liquids Labs today reveal a normal white count, normal TSH, troponin and CK are negative Lipase is up slightly from admission from 353 up to 380 Hemoglobin A1c is normal 4.7 Patient is potentially scheduled for surgery today for an enterostomy Will follow-up postop. Patient is asymptomatic concerning tachycardia. Patient's heart rate has been under 100 since admission 11/11/2019 Patient remains afebrile temperature 98.1 Heart rate this morning is 102, but has been as high as 131 last night around midnight Looks like patient's normal heart rate, at least since admission is around 90 This morning I asked her if she is ever been on any medicine for depression she says that she has and she currently is on that medicine. Only medicine I see at home was Ativan. Patient seems to need something like an SSRI and I am going to speak with her about her past psychiatric history, as I feel that this is a part of her current medical problems. The way that she is dealing with her pain, and medications. Certainly patient has no obvious pathology that would account for her tachycardia, at this time. Patient seems very anxious that we are going to stop her pain medicine and medicine for nausea and vomiting. Patient's labs appear stable 11/12/2019 Patient is once again become more tachycardic since yesterday afternoon with a r ate anywhere from 102 to 129. This appears to be sinus tach. She is supposed to be getting metoprolol IV every 4 hours for her tachycardia, but has not received any. I have called patient's nurse and informed her to give the metoprolol for her tachycardia. I truly think that her tachycardia is based on her anxiety. Temperature is up slightly today to 99.5. This is about a degree higher than her normal temperature Yesterday her white count had gone up to 11,400 and I am going to repeat her blood work today She was getting D5 half-normal saline at 150 an hour. I am going to continue this. Patient continues to be nauseated and in fact vomited just recently. I have ordered a scopolamine patch for this nausea in addition to what she is already taking. According to nursing she is fixated on her medications, what she is getting, when she is getting, how much she is getting. 11/13/2019 1430 hrs. once 0 700 this morning patient has had 2 episodes of vomiting, 1 resulting in 60 cc of green fluid the other 70 cc of green fluid. Patient continues to be slightly tachycardic averaging around 110. I am going to add metoprolol 2.5 mg IV every 6 hours. If this seems to lower her heart rate, would switch to a low dose p.o. every 12 hours. Pressure however stable 120/80 Normal white count We will repeat labs tomorrow to include a protein and albumin, amylase lipase and liver functions Patient's antiemetics have been changed and switched multiple times to try to find the right combination. Seem to be somewhat better today than yesterday less vomiting. Psychiatry consult is pending for opinion of the situation.
[2019-11-16] MEDS: NORMAL SALINE 10 ML SDV (SCHEDULED) IV SCH ×2 (10:00→23:24)
[2019-11-16] MEDS: OLANZAPINE 2.5 MG TABLET PO SCH ×2 (10:00→17:18)
[2019-11-16] MEDS ORDERED: FAT EMULSIONS 250 ML IV SCH (10:00)
--- NOTE | 2019-11-16 10:06 | PDOC DISCHARGE SUMMARY ---
General - Admit/Disc Date/PCP Admission Date/Primary Care Provider: 11/08/19 09:05 DARIUS COFFEY Discharge Date: 11/16/19 - Discharge Diagnosis Final Diagnosis: post gastrectomy nausea,vomiting - Assessment Summary: The patient's sinus tachycardia observed on the EKG at admission, has subsequently resolved and at the time of this consultation she appears to be in a normal sinus rhythm. EKG does suggest some nonspecific T wave changes and therefore serial cardiac enzymes, a magnesium level and a thyroid profile will be obtained. Patient will remain on telemetry and we will treat her tachycardia should it recur with IV metoprolol 5 mg every 4 hours as needed for sustained heart rate greater than 110. Serial lipase and amylase determinations will be obtained. Patient will continue on hydromorphone 2 mg IV every 4 hours as needed for pain and Ativan 1 mg IV every 4 hours as needed for anxiety or restlessness. CBCs, metabolic profiles and magnesium levels will be obtained as appropriate. Patient will be followed by the hospitalist service as long as necessary. 11/10/2019 Patient's vital signs are stable temperature 98.3 pulse 90 blood pressure 121/86 Admission weight is recorded at 61.5 kg today's weight is 66.8 Patient currently on clear liquids Labs today reveal a normal white count, normal TSH, troponin and CK are negative Lipase is up slightly from admission from 353 up to 380 Hemoglobin A1c is normal 4.7 Patient is potentially scheduled for surgery today for an enterostomy Will follow-up postop. Patient is asymptomatic concerning tachycardia. Baljeet rockwell's heart rate has been under 100 since admission 11/11/2019 Patient remains afebrile temperature 98.1 Heart rate this morning is 102, but has been as high as 131 last night around midnight Looks like patient's normal heart rate, at least since admission is around 90 This morning I asked her if she is ever been on any medicine for depression she says that she has and she currently is on that medicine. Only medicine I see at home was Ativan. Patient seems to need something like an SSRI and I am going to speak with her about her past psychiatric history, as I feel that this is a part of her current medical problems. The way that she is dealing with her pain, and medications. Certainly patient has no obvious pathology that would account for her tachycardia, at this time. Patient seems very anxious that we are going to stop her pain medicine and medicine for nausea and vomiting. Patient's labs appear stable 11/12/2019 Patient is once again become more tachycardic since yesterday afternoon with a rate anywhere from 102 to 129. This appears to be sinus tach. She is supposed to be getting metoprolol IV every 4 hours for her tachycardia, but has not received any. I have called patient's nurse and informed her to give the metoprolol for her tachycardia. I truly think that her tachycardia is based on her anxiety. Temperature is up slightly today to 99.5. This is about a degree higher than her normal temperature Yesterday her white count had gone up to 11,400 and I am going to repeat her blood work today She was getting D5 half-normal saline at 150 an hour. I am going to continue this. Patient continues to be nauseated and in fact vomited just recently. I have ordered a scopolamine patch for this nausea in addition to what she is already taking. According to nursing she is fixated on her medications, what she is getting, when she is getting, how much she is getting. 11/13/2019 1430 hrs. once 0 700 this morning patient has had 2 episodes of vomiting, 1 re sulting in 60 cc of green fluid the other 70 cc of green fluid. Patient continues to be slightly tachycardic averaging around 110. I am going to add metoprolol 2.5 mg IV every 6 hours. If this seems to lower her heart rate, would switch to a low dose p.o. every 12 hours. Pressure however stable 120/80 Normal white count We will repeat labs tomorrow to include a protein and albumin, amylase lipase and liver functions Patient's antiemetics have been changed and switched multiple times to try to find the right combination. Seem to be somewhat better today than yesterday less vomiting. Psychiatry consult is pending for opinion of the situation. 11/16/2019 discharge summary. 24-year-old female is approximately 2 months status post a prophylactic gastrectomy for genetic gastric cancer. She has had a difficult course since her gastrectomy having multiple admissions for chronic nausea and vomiting and unable to tolerate p.o. she appears to have periods where she is taking p.o. and then returns to the hospital or the office with chronic nausea and dehydration and readmitted to the hospital. This is at least her third admission to the hospital for chronic nausea and vomiting. She initially presented to my office and had her admitted to the hospital for IV rehydration. During this hospital course after rehydration she was taken to the operating for diagnostic laparoscopy lysis of adhesions and a jejunostomy tube placement. Subsequent to that she recovered over the 48-hour. Complaining of a significant pain from the small incision in the left upper quadrant but that eventually resolved. When jejunostomy tube feedings were started she started complaining of nausea related to that. After multiple attempts at the jejunostomy feedings and multiple modes of feedings the patient continued to refuse the jejunostomy tube feeds. She then underwent an upper GI study which did not show any type of obstruction. Therefore we discontinued the jejunostomy tube feedings left the tube in place and started on TPN. In addition that she I had her seen by psychiatry who recommended Thorazine for nausea and Zyprexa long-term she had been previously taking Paxil. She is been also followed by the medical service who will range for her medications related to the psychiatric recommendations. This morning she is afebrile with stable vital signs she is tolerating small amounts of regular food her jejunostomy tubes of been stopped she was started on TPN via PICC line placement during this hospital stay. At this point I feel that she is reached her maximum medical benefit in the hospital and and should be discharged home now on home TPN. I have been in contact with her surgeons at [facility] who performed a gastrectomy and they understand and agree with the current plan. She will be discharged home on TPN she is instructed to start taking p.o. as tolerated but continue the TPN until she is seen back in my office. We also leave the jejunostomy tube in place for further use in the future if necessary. I will refill her pain medicine with limited amount of Dilaudid 1 mg p.o. q. 6 as needed pain I also gave her a refill on her Ativan that she takes for chronic nausea and anxiety Dr. ESQUIVEL of from the medicine service will also prescribe the medications that were recommended by psychiatry. She will be followed up in my office in 7 to 10 days after discharge. - Additional Information Resuscitation Status: Full Code Discharge Diet: As Tolerated Discharge Activity: Activity As Tolerated Referrals: [facility] [Provider Group] - 11/21/19 1:45 pm Prescriptions: Lorazepam [Ativan 1 mg Tablet] 1 mg PO Q6 #30 tab Hydromorphone HCl [Dilaudid 2 mg Tablet] 2 mg PO Q6HP PRN #20 tablet PRN Reason: Home Medications: Lorazepam [Ativan 1 mg Tablet] 1 mg PO Q4HP PRN MDD FILLED 4/6 FOR 5 DAY SUPPLY 11/08/19 Metoclopramide HCl [Reglan 10 mg Tablet] 10 mg PO Q6HP PRN MDD FILLED 4/6 FOR 6 DAY SUPPLY 11/08/19 Oxycodone HCl/Acetaminophen [Percocet 10-325 Mg Tablet] 1 each PO Q6HP PRN MDD FILLED 4/6 FOR 5 DAY SUPPLY 11/08/19 Hydromorphone HCl [Dilaudid 2 mg Tablet] 2 mg PO Q6HP PRN #20 tablet 11/16/19 Lorazepam [Ativan 1 mg Tablet] 1 mg PO Q6 #30 tab 11/16/19 History of Present Illiness History of Present Illness: GRETTA CHAHAL is a 24 year old female Physical Exam Vital Signs: Temp Pulse Resp BP Pulse Ox 98.1 F 87 16 112/68 98 11/16/19 07:26 11/16/19 07:26 11/16/19 07:26 11/16/19 07:26 11/16/19 07:26 Intake & Output 11/15/19 11/16/19 11/17/19 06:59 06:59 06:59 Intake Total 3650 3710 1000 Output Total 400 30 Balance 3250 3680 1000 Weight 62 kg 62.1 kg Results Laboratory Results: WBC 8.0 10^3/uL (4.0-10.5) 11/14/19 04:50 RBC 4.07 10^6/uL (3.72-5.28) 11/14/19 04:50 Hgb 12.0 g/dL (12.0-15.5) 11/14/19 04:50 Hct 34.7 % (36.0-47.0) L 11/14/19 04:50 MCV 85 fl (80-97) 11/14/19 04:50 MCH 29.4 pg (27.0-33.4) 11/14/19 04:50 MCHC 34.5 g/dL (32.0-36.0) 11/14/19 04:50 RDW 12.8 % (11.5-14.0) 11/14/19 04:50 Plt Count 212 10^3/uL (150-450) 11/14/19 04:50 Lymph % (Auto) 14.0 % (13-45) 11/14/19 04:50 [place] % (Auto) 6.3 % (3-13) 11/14/19 04:50 Eos % (Auto) 1.8 % (0-6) 11/14/19 04:50 Baso % (Auto) 0.4 % (0-2) 11/14/19 04:50 Absolute Neuts (auto) 6.2 10^3/uL (1.7-8.2) 11/14/19 04:50 Absolute Lymphs (auto) 1.1 10^3/uL (0.5-4.7) 11/14/19 04:50 Absolute Monos (auto) 0.5 10^3/uL (0.1-1.4) 11/14/19 04:50 Absolute Eos (auto) 0.1 10^3/uL (0.0-0.6) 11/14/19 04:50 Absolute Basos (auto) 0.0 10^3/uL (0.0-0.2) 11/14/19 04:50 Seg Neutrophils % 77.5 % (42-78) 11/14/19 04:50 VBG pH 7.33 (7.30-7.42) 11/09/19 02:57 VBG pCO2 44.6 mmHg (35-63) 11/09/19 02:57 VBG HCO3 23.1 mmol/L (20-32) 11/09/19 02:57 VBG Base Excess -2.9 mmol/L 11/09/19 02:57 Sodium 133.9 mmol/L (137-145) L 11/14/19 04:50 Potassium 4.2 mmol/L (3.6-5.0) 11/14/19 04:50 Chloride 105 mmol/L (98-107) 11/14/19 04:50 Carbon Dioxide 20 mmol/L (22-30) L 11/14/19 04:50 Anion Gap 9 (5-19) 11/14/19 04:50 BUN 3 mg/dL (7-20) L 11/14/19 04:50 Creatinine 0.47 mg/dL (0.52-1.25) L 11/14/19 04:50 Est GFR ( Amer) > 60 (>60) 11/14/19 04:50 Est GFR (MDRD) Non-Af > 60 (>60) 11/14/19 04:50 Glucose 123 mg/dL (75-110) H 11/14/19 04:50 POC Glucose 123 mg/dL (70-110) H 11/16/19 06:06 Hemoglobin A1c % 4.7 % (4.7-6.0) 11/09/19 02:57 Calcium 8.7 mg/dL (8.4-10.2) 11/14/19 04:50 Magnesium 1.6 mg/dL (1.6-2.3) 11/11/19 05:08 Total Bilirubin 0.8 mg/dL (0.2-1.3) 11/14/19 04:50 Direct Bilirubin 0.0 mg/dL (0.0-0.4) 11/14/19 04:50 Neonat Total Bilirubin Not Reportable 11/14/19 04:50 Neonat Direct Bilirubin Not Reportable 11/14/19 04:50 Neonat Indirect Bili Not Reportable 11/14/19 04:50 AST 16 U/L (14-36) 11/14/19 04:50 ALT 33 U/L (<35) 11/14/19 04:50 Alkaline Phosphatase 65 U/L (38-126) 11/14/19 04:50 Creatine Kinase < 20 U/L (30-135) L 11/09/19 08:34 CK-MB (CK-2) < 0.22 ng/mL (<4.55) 11/09/19 08:34 Troponin I < 0.012 ng/mL 11/09/19 08:34 Total Protein 5.9 g/dL (6.3-8.2) L 11/14/19 04:50 Albumin 3.3 g/dL (3.5-5.0) L 11/14/19 04:50 Amylase 52 U/L (30-110) 11/14/19 04:50 Lipase 292.5 U/L (23-300) 11/14/19 04:50 Vitamin B1 152.5 nmol/L (66.5-200.0) 11/08/19 13:17 TSH 2.97 uIU/mL (0.47-4.68) 11/09/19 02:57 Free T3 pg/mL 3.48 pg/mL (2.77-5.27) 11/08/19 20:44 11/08/19 11/09/19 11/09/19 20:44 02:57 08:34 CK-MB (CK-2) < 0.22 < 0.22 < 0.22 Troponin I < 0.012 < 0.012 < 0.012 Impressions: PICC Line Insertion 11/14/19 00:00 IMPRESSION: SUCCESSFUL PLACEMENT OF A 5 FR DUAL LUMEN 36 CM PICC IN THE RIGHT BASILIC VEIN. Upper GI Series-Limited 11/14/19 00:00 IMPRESSION: Postsurgical changes from the total gastrectomy. Contrast freely traverses the anastomosis without evidence of mechanical obstruction. Upper GI and Small Bowel X-Ray 11/14/19 00:00 IMPRESSION: 1. Postsurgical changes from gastric resection. Dilated proximal jejunal loops measuring up to 3.8 cm. Contrast traverses distal to the small bowel dilation and reaches the colon by the 3 hour radiograph. 2. The jejunostomy tube coiled over left hemiabdomen. Findings discussed with Dr. Reza on 11/14/2019.
[2019-11-16] MEDS: AMINO ACIDS 5 %/DEXTROSE 20 % 1,000 ML IV PRN (21:20)
[2019-11-16] MEDS: POTASSI CL 20 MEQ/D5-1/2NS 1L 1000 ML IV PRN (21:22)
[2019-11-17] MEDS: METOCLOPRAMIDE HCL INJ/PF 10 MG/2 ML SDV IV SCH ×3 (00:09→12:00)
[2019-11-17] MEDS: HYDROMORPHONE HCL INJ/PF 2 MG/ML AMPULE IV PRN ×3 (00:09→12:56)
[2019-11-17] MEDS: METOPROLOL TARTRATE PF/INJ 5 MG/5 ML SDV IV SCH ×3 (00:13→12:00)
[2019-11-17] MEDS ORDERED: ZOLPIDEM TARTRATE 5 MG TABLET PO ONE (00:45)
[2019-11-17] MEDS: INSULIN REG, HUMAN 100 UNIT/ML 3 ML VIAL (PYX) SUBCUT SCH ×3 (01:23→12:09)
[2019-11-17] MEDS: POTASSI CL 20 MEQ/D5-1/2NS 1L 1000 ML IV PRN (05:25)
[2019-11-17] MEDS: SUCRALFATE 1 GM TABLET PO SCH ×3 (07:52→16:51)
[2019-11-17] MEDS: NORMAL SALINE 10 ML SDV (SCHEDULED) IV SCH (09:29)
[2019-11-17] MEDS: OLANZAPINE 2.5 MG TABLET PO SCH (09:35)
[2019-11-17] MEDS: TRAMADOL HCL 50 MG TABLET PO PRN (09:39)
[2019-11-17 12:35] LABS: ABSOLUTE EOSINOPHILS # (AUTO) 0.1 10^3/uL (0.0-0.6); ABSOLUTE MONOCYTES (AUTO) 0.7 10^3/uL (0.1-1.4); ABSOLUTE NEUT (AUTO) 7.3 10^3/uL (1.7-8.2); BASOPHILS % (AUTO) 0.5 % (0-2); EOSINOPHILS % (AUTO) 0.7 % (0-6); HEMATOCRIT 35.3 % (36.0-47.0); HEMOGLOBIN 12.3 g/dL (12.0-15.5); LYMPHOCYTES % (AUTO) 10.9 % (13-45); MEAN CORPUSCULAR HGB CONC 34.8 g/dL (32.0-36.0); MEAN CORPUSCULAR VOLUME 86 fl (80-97); MONOCYTES % (AUTO) 7.5 % (3-13); PLATELET COUNT 331 10^3/uL (150-450); RED CELL DISTRIBUTION WIDTH 13.1 % (11.5-14.0); SEGMENTED NEUTROPHILS % (AUTO) 80.4 % (42-78); TOTAL CELLS COUNTED % (AUTO) 100 %; WHITE BLOOD COUNT 9.1 10^3/uL (4.0-10.5)
[2019-11-17 12:54] LABS: ANION GAP 11 (5-19); BLOOD UREA NITROGEN 6 mg/dL (7-20); CALCIUM 8.9 mg/dL (8.4-10.2); CARBON DIOXIDE 21 mmol/L (22-30); CHLORIDE 100 mmol/L (98-107); GLUCOSE 138 mg/dL (75-110); PHOSPHORUS 3.4 mg/dL (2.5-4.5); POTASSIUM 4.7 mmol/L (3.6-5.0); TRIGLYCERIDES 71 mg/dL (<150)
[2019-11-17 13:01] LABS: PREALBUMIN 28.1 mg/dL (17.6-36.0)
[2019-11-17 16:58] VITALS: BP 115/67
== END 2019-11-17 17:30 | disposition home health service (06) | DRG 357 ==
LOC: 4N 09:05
PROVIDERS: ADMIT Surgery; ATTEND Surgery
PROC: 0DQV4ZZ Repair Mesentery, Percutaneous Endoscopic Approach (ICD-10-PCS; principal; 2019-11-10 12:00)
PROC: 0DHA4UZ Insertion of Feeding Device into Jejunum, Percutaneous Endoscopic Approach (ICD-10-PCS; 2019-11-10 12:00)
PROC: 02HV33Z Insertion of Infusion Device into Superior Vena Cava, Percutaneous Approach (ICD-10-PCS; 2019-11-14)
PROC: B518ZZA Fluoroscopy of Superior Vena Cava, Guidance (ICD-10-PCS; 2019-11-14)
PROC: B548ZZA Ultrasonography of Superior Vena Cava, Guidance (ICD-10-PCS; 2019-11-14)
DX: K91.0 Vomiting following gastrointestinal surgery (principal); E87.1 Hypo-osmolality and hyponatremia; K46.9 Unspecified abdominal hernia without obstruction or gangrene; K66.0 Peritoneal adhesions (postprocedural) (postinfection); E86.0 Dehydration; R00.0 Tachycardia, unspecified; F41.8 Other specified anxiety disorders; Y83.6 Removal of other organ (partial) (total) as the cause of abnormal reaction of the patient, or of later complication, without mention of misadventure at the time of the procedure; Y73.8 Miscellaneous gastroenterology and urology devices associated with adverse incidents, not elsewhere classified; Y92.018 Other place in single-family (private) house as the place of occurrence of the external cause; Z80.0 Family history of malignant neoplasm of digestive organs; Z90.3 Acquired absence of stomach [part of]; Z76.5 Malingerer [conscious simulation]
CPT/HCPCS: 36415; 36573; 43239; 74240; 74248; 790; 80048; 80053; 82150; 82550; 82553; 82803; 82962; 83036; 83690; 83735; 84100; 84134; 84425; 84443; 84478; 84481; 84484; 85025; 85027; 93005; 93010; C9113; C9290; J0330; J0690; J1100; J1170; J1642; J1885; J2060; J2250; J2405; J2550; J2704; J2765; J3010; J3411; J3480; J3490; J7050; S0028